=== PATIENT | male | born 1965 | race African-American/Black ===

== ENCOUNTER 2016-09-19 15:20 | Inpatient (IN) | payer OTHER ==
[2016-09-19 15:45] VITALS: BMI 24.1
--- NOTE | 2016-09-19 18:52 | HP ---
COWS - Scale Resting Pulse: 0= [place] 80 or Below Sweatin= Chills/Flushing Restless Observation: 3= Extraneous Movement Pupil Size: 0= Normal to Room Light Bone or Joint Aches: 2= Severe Diffuse Aches Runny Nose/ Eye Tearin= Runny Nose/Eyes GI Upset > 30mins: 2= Nausea/Diarrhea Tremor Observation: 2= Slight Tremor Visible Yawning Observation: 0= None Anxiety or Irritability: 2=Irritable/Anxious Goose Flesh Skin: 0=Smooth Skin COWS Score: 14 [facility] Chief Complaint: withdrawal sx Allergies/Adverse Reactions: Allergies Allergy/AdvReac Type Severity Reaction Status Date / Time No Known Allergies Allergy Verified 09/19/16 18:12 History of Present Illness: 51 years old male with long history of opium cocaine nicotine dependence has asthma positive ppd chronic back pain and depression is admitted to detox Exam Limitations: No Limitations - Ebola screening Have you traveled outside of the country in the last 21 days: No Have you had contact with anyone from an Ebola affected area: No Have you been sick,other than usual withdrawal symptoms: No Do you have a fever: No - Review of Systems Constitutional: Chills, Loss of Appetite, Changes in sleep, Unintentional Wgt. Loss, Unexplained wgt Loss EENT: reports: No Symptoms Reported Respiratory: reports: Cough, SOB with Exertion Cardiac: reports: No Symptoms Reported GI: reports: Nausea, Poor Appetite, Poor Fluid Intake, Abdominal cramping : reports: No Symptoms Reported Musculoskeletal: reports: Back Pain, Joint Pain, Muscle Pain, Neck Pain Integumentary: reports: No Symptoms Reported Neuro: reports: Tremors Endocrine: reports: No Symptoms Reported Hematology: reports: No Symptoms Reported Psychiatric: reports: Judgement Intact, Orientated x3, Depressed Other Systems: Reviewed and Negative Patient History - Patient Medical History Hx Anemia: No Hx Asthma: Yes Hx Chronic Obstructive Pulmonary Disease (COPD): No Hx Cancer: No Hx Cardiac Disorders: Yes (Hx. Heart Murmur) Hx Congestive Heart Failure: No Hx Hypertension: No Hx Hypercholesterolemia: No Hx Pacemaker: No HX Cerebrovascular Accident: No Hx Seizures: No Hx Dementia: No Hx Diabetes: No Hx Gastrointestinal Disorders: No Hx Liver Disease: No Hx Genitourinary Disorders: No Hx Sexually Transmitted Disorders: No Hx Renal Disease (ESRD): No Hx Thyroid Disease: No Hx Human Immunodeficiency Virus (HIV): No Hx Hepatitis C: No Hx Depression: Yes Hx Suicide Attempt: No Hx Bipolar Disorder: No Hx Schizophrenia: No - Patient Surgical History Past Surgical History: No - PPD History Previous Implant?: Yes Documented Results: Positive w/o proof Implanted On Prior [facility] Admission?: No PPD to be Administered?: No - Smoking Cessation Smoking history: Current every day smoker Have you smoked in the past 12 months: Yes Aproximately how many cigarettes per day: 12 Cigars Per Day: 0 Hx Chewing Tobacco Use: No Initiated information on smoking cessation: Yes 'Breaking Loose' booklet given: 09/19/16 - Substance & Tx. History Hx Alcohol Use: No Hx Substance Use: Yes Substance Use Type: Cocaine, Opiates Hx Substance Use Treatment: No - Substances Abused Heroin Route: Inhalation Frequency: Daily Amount used: 1-3 BAGS Age of first use: 42 Date of Last Use: 09/19/16 Cocaine Route: Smoking Frequency: Daily Amount used: 4-5 BAGS Age of first use: 22 Date of Last Use: 09/19/16 Family Disease History - Family Disease History Family Disease History: [place]: Father (), Other: Father Other Family History: only child Admission Physical Exam BHS - Vital Signs Vital Signs: Vital Signs - 24 hr 09/19/16 15:43 Temperature 97.4 F L Pulse Rate 60 Respiratory 18 Rate Blood Pressure 136/80 - Physical General Appearance: Yes: Appropriately Dressed, Mild Distress, Thin, Tremorous, Irritable, Sweating, Anxious HEENTM: Yes: Hearing grossly Normal, Normal ENT Inspection, Normocephalic, Normal Voice Respiratory: Yes: Chest Non-Tender, No Respiratory Distress, No Accessory Muscle Use, Wheezing, Hyperresonant Neck: Yes: Supple, Trachea in good position Breast: Yes: Breasts Symetrical Cardiology: Yes: Regular Rhythm, S1, S2, Bradycardia Abdominal: Yes: Non Tender, Soft, Increased Bowel Sounds Genitourinary: Yes: Within Normal Limits Back: Yes: Normal Inspection Musculoskeletal: Yes: full range of Motion, Gait Steady, Back pain, Muscle Pain Extremities: Yes: Normal Inspection, Normal Range of Motion, Non-Tender, Tremors Neurological: Yes: Fully Oriented, Alert, Motor Strength 5/5, Normal Response, Depressed Affect Integumentary: Yes: Warm Lymphatic: Yes: Within Normal Limits - Addiitonal Findings: unable to select problem upon admission due to technology see summary problem Cleared for Admission [facility] - Detox or Rehab [facility] Level of Care: Medically Managed Detox Regimen/Protocol: Methadone [facility] Breath Alcohol Content Breath Alcohol Content: 0.008 Urine Drug Screen - Results Drug Screen Negative: No Urine Drug Screen Results: STEPHANIE-Cocaine, OPI-Opiates
[2016-09-19] MEDS ORDERED: METHADONE HCL 10 MG TABLET (FOR DETOX USE ONLY) PO ONE ×2 (18:55→23:00)
[2016-09-19] MEDS ORDERED: MAGNESIUM HYDROX 2400MG/30ML ORAL SUSPENSION 30 ML CUP PO PRN (18:55)
[2016-09-19] MEDS ORDERED: MAG HYDROX/AL HYDROX/SIMETH 30 ML UNIT-DOSE CUP PO PRN (18:55)
[2016-09-19] MEDS ORDERED: guaiFENesin/D-METHORPHAN HB 10 ML UNIT-DOSE CUPS PO PRN (18:55)
[2016-09-19] MEDS ORDERED: LOPERAMIDE HCL 2 MG CAPSULE PO PRN (18:55)
[2016-09-19] MEDS ORDERED: MENTHOL/PHENOL 1 EACH UD MM PRN (18:55)
[2016-09-19] MEDS ORDERED: ACETAMINOPHEN 325 MG TABLET (FP) PO PRN (18:55)
[2016-09-19] MEDS ORDERED: MAGNESIUM CITRATE 300 ML BOTTLE PO PRN (18:55)
[2016-09-19] MEDS ORDERED: NICOTINE POLACRILEX 4 MG GUM BC PRN (18:55)
[2016-09-19] MEDS ORDERED: P-EPHED 60MG/TRIPROLIDI 2.5MG TABLET PO PRN (18:55)
[2016-09-19] MEDS ORDERED: IBUPROFEN 400 MG TABLET (FP) PO PRN (18:55)
[2016-09-19] MEDS ORDERED: ALBUTEROL SO4 6.7 GM HFA INHALER IH PRN (18:57)
[2016-09-19] MEDS ORDERED: ALBUTEROL SO4 2.5/IPRATROPIUM 0.5 INH SOL 3 ML VIAL.NEB. NEB PRN (18:57)
[2016-09-19] MEDS: diazePAM 5 MG TABLET PO PRN (19:27)
[2016-09-19] MEDS: BUDESONIDE/FORMETEROL FUMARATE 80/4.5 mcg INHALER IH SCH (22:13)
[2016-09-19] MEDS: LIDOCAINE PATCH REMOVAL MC SCH (22:13)
[2016-09-19] MEDS: THIAMINE HCL 100 MG TABLET (FP) PO SCH (22:13)
[2016-09-20 02:25] LABS: URINE APPEARANCE SLCLOUDY; URINE BILIRUBIN NEGATIVE (NEGATIVE); URINE BLOOD NEGATIVE (NEGATIVE); URINE COLOR YELLOW; URINE GLUCOSE (UA) NEGATIVE (NEGATIVE); URINE KETONE TRACE (NEGATIVE); URINE LEUK ESTERASE NEGATIVE (NEGATIVE); URINE NITRITE NEGATIVE (NEGATIVE); URINE PROTEIN NEGATIVE (NEGATIVE); URINE UROBILINOGEN NEGATIVE E.U./dl (0.2-1.0)
[2016-09-20] MEDS: CYCLOBENZAPRINE HCL 10 MG TABLET (FP) PO PRN (05:34)
[2016-09-20] MEDS: diazePAM 5 MG TABLET PO PRN ×3 (05:34→13:41)
--- NOTE | 2016-09-20 09:42 | PN ---
BHS COWS - Scale Resting Pulse: 0= [place] 80 or Below Sweatin= Chills/Flushing Restless Observation: 3= Extraneous Movement Pupil Size: 2= Moderately Dilated Bone or Joint Aches: 4=Acute Joint/Muscle Pain Runny Nose/ Eye Tearin= Nasal Congestion GI Upset > 30mins: 1= Stomach Cramp Tremor Observation of Outstretched Hands: 2= Slight Tremor Visible Yawning Observation: 1= 1-2x During Session Anxiety or Irritability: 1=Feels Anxious/Irritable Goose Flesh Skin: 0=Smooth Skin COWS Score: 16 BHS Progress Note (SOAP) Subjective: ANXIETY,SWEATS,FATIGUE. Objective: 09/20/16 09:41 Vital Signs Temperature 97.1 F L 09/20/16 06:47 Pulse Rate 59 L 09/20/16 06:47 Respiratory Rate 18 09/20/16 06:47 Blood Pressure 125/81 09/20/16 06:47 O2 Sat by Pulse Oximetry (%) Laboratory Last Values Urine Color Yellow 09/20/16 00:07 Urine Appearance Slcloudy 09/20/16 00:07 Urine pH 6.0 (5.0-8.0) 09/20/16 00:07 Urine Protein Negative (NEGATIVE) 09/20/16 00:07 Urine Glucose (UA) Negative (NEGATIVE) 09/20/16 00:07 Urine Ketones Trace (NEGATIVE) H 09/20/16 00:07 Urine Blood Negative (NEGATIVE) 09/20/16 00:07 Urine Nitrite Negative (NEGATIVE) 09/20/16 00:07 Urine Bilirubin Negative (NEGATIVE) 09/20/16 00:07 Urine Urobilinogen Negative E.U./dl (0.2-1.0) 09/20/16 00:07 Ur Leukocyte Esterase Negative (NEGATIVE) 09/20/16 00:07 Assessment: 09/20/16 09:41 WITHDRAWAL SX Plan: CONTINUE DETOX
[2016-09-20] MEDS ORDERED: METHADONE HCL 10 MG TABLET (FOR DETOX USE ONLY) PO ONE (10:00)
[2016-09-20] MEDS: LIDOCAINE 5% TOPICAL PATCH TP SCH (10:08)
[2016-09-20] MEDS: NICOTINE 21 MG/24 HOURS TOPICAL PATCH TD SCH (10:08)
[2016-09-20] MEDS: BUDESONIDE/FORMETEROL FUMARATE 80/4.5 mcg INHALER IH SCH ×2 (10:08→22:14)
[2016-09-20] MEDS: PRENATAL VITAMINS W/ FOLIC ACID TABLET (FP) PO SCH (10:09)
[2016-09-20 10:11] LABS: MCH 23.7 pg (25.7-33.7); MCHC 32.1 g/dl (32.0-35.9); MEAN CELL VOLUME 73.9 fl (80-96); MEAN PLT VOLUME 9.4 fl (7.5-11.1); PLATELET COUNT 198 K/MM3 (134-434); RDW 15.4 % (11.9-15.9); WHITE BLOOD COUNT 6.4 K/mm3 (4.0-10.0)
[2016-09-20 10:48] LABS: ALBUMIN 3.2 g/dl (3.4-5.0); ANION GAP 5 (8-16); CALCIUM 8.3 mg/dL (8.5-10.1); CO2 30 mmol/L (21-32); CREATININE 0.9 mg/dL (0.7-1.3); GLUCOSE,RANDOM 93 mg/dL (74-106); SGOT/AST 21 U/L (15-37); SGPT/ALT 29 U/L (12-78)
[2016-09-20 10:50] LABS: ALK PHOS 101 U/L (45-117); BILIRUBIN,TOTAL 0.5 mg/dL (0.2-1.0); TOT PROT 6.1 g/dl (6.4-8.2)
--- NOTE | 2016-09-20 14:22 | CONSULT ---
[facility] Psychiatric Consult - Data Date of interview: 09/20/16 Admission source: [facility] Identifying data: This is 51 years old male with no psychiatric hospitalization history intoxicated with : Heroin, Crack, Nicotine Substance Abuse History: - Smoking Cessation. Smoking history: Current every day smoker. Have you smoked in the past 12 months: Yes. Aproximately how many cigarettes per day: 12. Cigars Per Day: 0. Hx Chewing Tobacco Use: No. Initiated information on smoking cessation: Yes. 'Breaking Loose' booklet given : 09/19/16. - Substance & Tx. History. Hx Alcohol Use: No. Hx Substance Use: Yes. Substance Use Type: Cocaine, Opiates. Hx Substance Use Treatment: No. - Substances Abused. Heroin. Route: Inhalation. Frequency: Daily. Amount used: 1-3 BAGS. Age of first use: 42. Date of Last Use: 09/19/16. Cocaine. Route: Smoking. Frequency: Daily. Amount used: 4-5 BAGS. Age of first use: 22. Date of Last Use: 09/19/16 Medical History: Asthma, LBP, OOD + history, Psychiatric History: Patient reports history of depression, reports no medications taking prior to admission, denies suicidal history Physical/Sexual Abuse/Trauma History: Denies Additional Comment: Observation. Detox Unit Care Protocol Mental Status Exam - Mental Status Exam Alert and Oriented to: Person Cognitive Function: Fair Patient Appearance: Well Groomed, Unkempt Mood: Apprehensive Affect: Flat Patient Behavior: Cooperative Speech Pattern: Appropriate Voice Loudness: Normal Thought Process: Goal Oriented Thought Disorder: Being Controlled Hallucinations: Denies Suicidal Ideation: Denies Homicidal Ideation: Denies Insight/Judgement: Fair Sleep: Difficulty falling asleep Appetite: Fair Muscle strength/Tone: Normal Gait/Station: Normal Additional Comments: Observation. Detox Unit Care Protocol Psychiatric Findings - Problem List ([place] 1, 2,3) (1) Opioid dependence with withdrawal Current Visit: Yes Status: Acute (2) Weight loss Current Visit: Yes Status: Acute (3) Cocaine dependence Current Visit: Yes Status: Acute (4) Nicotine dependence Current Visit: Yes Status: Acute (5) Drug-induced mood disorder Current Visit: Yes Status: Suspected - Initial Treatment Plan Initial Treatment Plan: Observation. Detox Unit Care Protocol
[2016-09-20 15:32] LABS: HIV 1 & 2 AB NEGATIVE; HIV 1 AGp24 NEGATIVE
--- NOTE | 2016-09-20 15:50 | EKG ---
Test Reason : Blood Pressure : / mmHG Vent. Rate : 060 BPM Atrial Rate : 060 BPM P-R Int : 150 ms QRS Dur : 074 ms QT Int : 442 ms P-R-T Axes : 068 052 052 degrees QTc Int : 442 ms NORMAL SINUS RHYTHM NORMAL ECG NO PREVIOUS ECGS AVAILABLE Confirmed by BROOKE WALTERS, ALEX ([id number]) on 09/20/2016 3:49:45 PM Referred By: Confirmed By:ALEX COX MD
[2016-09-20] MEDS: diphenhydrAMINE HCL 50 MG CAPSULE PO PRN (22:15)
[2016-09-20] MEDS: THIAMINE HCL 100 MG TABLET (FP) PO SCH (22:15)
[2016-09-20] MEDS: LIDOCAINE PATCH REMOVAL MC SCH (22:16)
[2016-09-21] MEDS: diazePAM 5 MG TABLET PO PRN ×2 (05:38→10:13)
[2016-09-21] MEDS ORDERED: METHADONE HCL 5 MG TABLET (FOR DETOX USE ONLY) PO ONE (10:00)
[2016-09-21] MEDS: PRENATAL VITAMINS W/ FOLIC ACID TABLET (FP) PO SCH (10:10)
[2016-09-21] MEDS: BUDESONIDE/FORMETEROL FUMARATE 80/4.5 mcg INHALER IH SCH ×2 (10:10→22:05)
[2016-09-21] MEDS: NICOTINE 21 MG/24 HOURS TOPICAL PATCH TD SCH (10:12)
[2016-09-21] MEDS: LIDOCAINE 5% TOPICAL PATCH TP SCH (10:12)
--- NOTE | 2016-09-21 10:44 | PN ---
BHS COWS - Scale Resting Pulse: 0= [place] 80 or Below Sweatin= Chills/Flushing Restless Observation: 3= Extraneous Movement Pupil Size: 0= Normal to Room Light Bone or Joint Aches: 4=Acute Joint/Muscle Pain Runny Nose/ Eye Tearin= Nasal Congestion GI Upset > 30mins: 1= Stomach Cramp Tremor Observation of Outstretched Hands: 1= Tremor [place], Not Seen Yawning Observation: 1= 1-2x During Session Anxiety or Irritability: 2=Irritable/Anxious Goose Flesh Skin: 0=Smooth Skin COWS Score: 14 S Progress Note (SOAP) Subjective: ANXIETY,SWEATS,OOB WITH NAD. Objective: 09/21/16 10:44 Vital Signs Temperature 97.7 F 09/21/16 10:20 Pulse Rate 59 L 09/21/16 10:20 Respiratory Rate 16 09/21/16 10:20 Blood Pressure 135/88 09/21/16 10:20 O2 Sat by Pulse Oximetry (%) Laboratory Last Values WBC 6.4 K/mm3 (4.0-10.0) 09/20/16 07:00 RBC 4.49 M/mm3 (4.00-5.60) 09/20/16 07:00 Hgb 10.7 GM/dL (11.7-16.9) L 09/20/16 07:00 Hct 33.2 % (35.4-49) L 09/20/16 07:00 MCV 73.9 fl (80-96) L 09/20/16 07:00 MCHC 32.1 g/dl (32.0-35.9) 09/20/16 07:00 RDW 15.4 % (11.9-15.9) 09/20/16 07:00 Plt Count 198 K/MM3 (134-434) 09/20/16 07:00 MPV 9.4 fl (7.5-11.1) 09/20/16 07:00 Sodium 141 mmol/L (136-145) 09/20/16 07:00 Potassium 4.2 mmol/L (3.5-5.1) 09/20/16 07:00 Chloride 106 mmol/L (98-107) 09/20/16 07:00 Carbon Dioxide 30 mmol/L (21-32) 09/20/16 07:00 Anion Gap 5 (8-16) L 09/20/16 07:00 BUN 13 mg/dL (7-18) 09/20/16 07:00 Creatinine 0.9 mg/dL (0.7-1.3) 09/20/16 07:00 Creat Clearance w eGFR > 60 (>60) 09/20/16 07:00 Random Glucose 93 mg/dL (74-106) 09/20/16 07:00 Calcium 8.3 mg/dL (8.5-10.1) L 09/20/16 07:00 Total Bilirubin 0.5 mg/dL (0.2-1.0) 09/20/16 07:00 AST 21 U/L (15-37) 09/20/16 07:00 ALT 29 U/L (12-78) 09/20/16 07:00 Alkaline Phosphatase 101 U/L (45-117) 09/20/16 07:00 Total Protein 6.1 g/dl (6.4-8.2) L 09/20/16 07:00 Albumin 3.2 g/dl (3.4-5.0) L 09/20/16 07:00 Urine Color Yellow 09/20/16 00:07 Urine Appearance Slcloudy 09/20/16 00:07 Urine pH 6.0 (5.0-8.0) 09/20/16 00:07 Ur Specific [place] 1.025 (1.005-1.025) 09/20/16 00:07 Urine Protein Negative (NEGATIVE) 09/20/16 00:07 Urine Glucose (UA) Negative (NEGATIVE) 09/20/16 00:07 Urine Ketones Trace (NEGATIVE) H 09/20/16 00:07 Urine Blood Negative (NEGATIVE) 09/20/16 00:07 Urine Nitrite Negative (NEGATIVE) 09/20/16 00:07 Urine Bilirubin Negative (NEGATIVE) 09/20/16 00:07 Urine Urobilinogen Negative E.U./dl (0.2-1.0) 09/20/16 00:07 Ur Leukocyte Esterase Negative (NEGATIVE) 09/20/16 00:07 RPR Titer Nonreactive (NONREACTIVE) 09/20/16 07:00 Hepatitis C Antibody <0.1 s/co ratio (0.0-0.9) 09/19/16 07:00 HIV 1&2 Antibody Screen Negative 09/20/16 07:00 HIV P24 Antigen Negative 09/20/16 07:00 Assessment: 09/21/16 10:44 WITHDRAWAL SX Plan: CONTINUE DETOX
[2016-09-21] MEDS: LIDOCAINE PATCH REMOVAL MC SCH (22:05)
[2016-09-21] MEDS: THIAMINE HCL 100 MG TABLET (FP) PO SCH (22:05)
[2016-09-21] MEDS: diphenhydrAMINE HCL 50 MG CAPSULE PO PRN (22:05)
[2016-09-22] MEDS: diazePAM 5 MG TABLET PO PRN (05:48)
[2016-09-22] MEDS: CYCLOBENZAPRINE HCL 10 MG TABLET (FP) PO PRN (05:48)
[2016-09-22] MEDS ORDERED: METHADONE HCL 5 MG TABLET (FOR DETOX USE ONLY) PO ONE (10:00)
[2016-09-22] MEDS: PRENATAL VITAMINS W/ FOLIC ACID TABLET (FP) PO SCH (10:13)
[2016-09-22] MEDS: LIDOCAINE 5% TOPICAL PATCH TP SCH (10:13)
[2016-09-22] MEDS: BUDESONIDE/FORMETEROL FUMARATE 80/4.5 mcg INHALER IH SCH (10:13)
[2016-09-22] MEDS: NICOTINE 21 MG/24 HOURS TOPICAL PATCH TD SCH (10:14)
--- NOTE | 2016-09-22 15:00 | PN ---
BHS Progress Note (SOAP) Subjective: Tremors, Anxious, Sweating. Objective: PT. A & O X 3, OBSERVED AMBULATING ON UNIT. NO ACUTE DISTRESS. 09/22/16 14:59 Vital Signs Temperature 97.1 F L 09/22/16 13:45 Pulse Rate 70 09/22/16 13:45 Respiratory Rate 18 09/22/16 13:45 Blood Pressure 135/83 09/22/16 13:45 O2 Sat by Pulse Oximetry (%) Laboratory Tests 09/19/16 09/20/16 09/20/16 07:00 00:07 07:00 WBC RBC Hgb Hct MCV MCHC RDW Plt Count MPV Sodium Potassium Chloride Carbon Dioxide Anion Gap BUN Creatinine Creat Clearance w eGFR Random Glucose Calcium Total Bilirubin AST ALT Alkaline Phosphatase Total Protein Albumin Urine Color Yellow Urine Appearance Slcloudy Urine pH 6.0 Ur Specific [place] 1.025 Urine Protein Negative Urine Glucose (UA) Negative Urine Ketones Trace H Urine Blood Negative Urine Nitrite Negative Urine Bilirubin Negative Urine Urobilinogen Negative Ur Leukocyte Esterase Negative RPR Titer Hepatitis C Antibody <0.1 HIV 1&2 Antibody Screen Negative HIV P24 Antigen Negative 09/20/16 09/20/16 09/20/16 07:00 07:00 07:00 WBC 6.4 RBC 4.49 Hgb 10.7 L Hct 33.2 L MCV 73.9 L MCHC 32.1 RDW 15.4 Plt Count 198 MPV 9.4 Sodium 141 Potassium 4.2 Chloride 106 Carbon Dioxide 30 Anion Gap 5 L BUN 13 Creatinine 0.9 Creat Clearance w eGFR > 60 Random Glucose 93 Calcium 8.3 L Total Bilirubin 0.5 AST 21 ALT 29 Alkaline Phosphatase 101 Total Protein 6.1 L Albumin 3.2 L Urine Color Urine Appearance Urine pH Ur Specific [place] Urine Protein Urine Glucose (UA) Urine Ketones Urine Blood Urine Nitrite Urine Bilirubin Urine Urobilinogen Ur Leukocyte Esterase RPR Titer Nonreactive Hepatitis C Antibody HIV 1&2 Antibody Screen HIV P24 Antigen LABS NOTED. Assessment: 09/22/16 14:59 WITHDRAWAL SYMPTOMS. Plan: CONTINUE DETOX.
[2016-09-22 17:24] VITALS: BP 127/69; PULSE 63; TEMP 97.4
--- NOTE | 2016-09-22 21:26 | DS ---
[facility] Detox Discharge Summary Admission Date: 09/19/16 Discharge Date: 09/22/16 - History Present History: Cocaine Dependence, Opioid Dependence Additional Comments: Pt. left AMA. He was encouraged to complete treatment, however he refused to stay and did not give a reason as to why he wanted to leave. - Physical Exam Results Vital Signs: Vital Signs Temperature 97.4 F L 09/22/16 17:22 Pulse Rate 63 09/22/16 17:22 Respiratory Rate 18 09/22/16 17:22 Blood Pressure 127/69 09/22/16 17:22 O2 Sat by Pulse Oximetry (%) - Treatment Hospital Course: Discharged Condition Good - Medication Discharge Medications: Ambulatory Orders Albuterol Sulfate Inhaler - [Ventolin HFA Inhaler -] 2 inh PO Q6H #1 inh - Diagnosis (1) Asthma Status: Acute (2) Cocaine dependence Status: Acute (3) Opioid dependence with withdrawal Status: Acute - AMA Did Patient Leave Against Medical Advice: Yes (Pt. was given the contact information to [facility] [place]. )
[2016-09-23] MEDS ORDERED: METHADONE HCL 10 MG TABLET (FOR DETOX USE ONLY) PO ONE (10:00)
[2016-09-24] MEDS ORDERED: METHADONE HCL 5 MG TABLET (FOR DETOX USE ONLY) PO ONE (06:00)
== END 2016-09-22 20:39 | disposition left against medical advice (07) | DRG 770 ==
LOC: YASAS 15:20 → Y3N 18:25
PROVIDERS: ADMIT Internal Medicine; ATTEND Internal Medicine
PROC: HZ2ZZZZ Detoxification Services for Substance Abuse Treatment (ICD-10-PCS; principal; 2016-09-22)
DX: F11.23 Opioid dependence with withdrawal (principal); F14.20 Cocaine dependence, uncomplicated; F17.210 Nicotine dependence, cigarettes, uncomplicated; F19.24 Other psychoactive substance dependence with psychoactive substance-induced mood disorder; J45.909 Unspecified asthma, uncomplicated; R63.4 Abnormal weight loss; Z68.24 Body mass index [BMI] 24.0-24.9, adult
CPT/HCPCS: 36415; 80053; 81003; 85027; 86593; 86803; 87389; 93005; 93010

== ENCOUNTER 2017-03-21 18:58 | Inpatient (IN) | payer OTHER ==
[2017-03-21 20:27] VITALS: BMI 25.5
--- NOTE | 2017-03-21 21:32 | HP ---
CIWA Score - CIWA Score Nausea/Vomitin-Mild Nausea/No Vomiting Muscle Tremors: 4-Moderate,w/Arms Extend Anxiety: 4-Mod. Anxious/Guarded Agitation: 4-Moderately Restless Paroxysmal Sweats: 1-Minimal Palms Moist Orientation: 0-Oriented Tacttile Disturbances: 0-None Auditory Disturbances: 0-None Visual Disturbances: 0-None Headache: 0-None Present CIWA-Ar Total Score: 14 Admission ROS BHS - HPI Chief Complaint: WITHDRAWAL SX Allergies/Adverse Reactions: Allergies Allergy/AdvReac Type Severity Reaction Status Date / Time No Known Allergies Allergy Verified 09/19/16 18:12 History of Present Illness: 52 YEARS OLD MALE WITH LONG HISTORY OF ALCOHOL NICOTINE DEPENDENCE HAS ASTHMA POSITIVE PPD METHADONE MAINTENANCE 60 MG DAILY AND DEPRESSION IS ADMITTED TO DETOX Exam Limitations: No Limitations - Ebola screening Have you traveled outside of the country in the last 21 days: No Have you had contact with anyone from an Ebola affected area: No Have you been sick,other than usual withdrawal symptoms: No Do you have a fever: No - Review of Systems Constitutional: Loss of Appetite, Changes in sleep, Unintentional Wgt. Loss, Unexplained wgt Loss EENT: reports: Blurred Vision (NEED EYE GLASSES), Dental Problems (LEFT LOWER TOOTH ACHE X 1 MONTH ABLE TO CHEW GUM AND CHEW REGULAR FOOD) Respiratory: reports: No Symptoms reported Cardiac: reports: No Symptoms Reported GI: reports: Nausea, Poor Appetite, Poor Fluid Intake, Abdominal cramping : reports: No Symptoms Reported Musculoskeletal: reports: Back Pain (X15 YEARS) Integumentary: reports: No Symptoms Reported Neuro: reports: Tremors Endocrine: reports: No Symptoms Reported Hematology: reports: No Symptoms Reported Psychiatric: reports: Judgement Intact, Orientated x3, Anxious, Depressed Other Systems: Reviewed and Negative Patient History - Patient Medical History Hx Anemia: No Hx Asthma: Yes Hx Chronic Obstructive Pulmonary Disease (COPD): No Hx Cancer: No Hx Cardiac Disorders: Yes (Hx. Heart Murmur) Hx Congestive Heart Failure: No Hx Hypertension: No Hx Hypercholesterolemia: No Hx Pacemaker: No HX Cerebrovascular Accident: No Hx Seizures: No Hx Dementia: No Hx Diabetes: No Hx Gastrointestinal Disorders: No Hx Liver Disease: No Hx Genitourinary Disorders: No Hx Sexually Transmitted Disorders: No Hx Renal Disease (ESRD): No Hx Thyroid Disease: No Hx Human Immunodeficiency Virus (HIV): No Hx Hepatitis C: No Hx Depression: Yes Hx Suicide Attempt: No Hx Bipolar Disorder: No Hx Schizophrenia: No - Patient Surgical History Past Surgical History: No - PPD History Previous Implant?: Yes Documented Results: Positive w/proof Implanted On Prior [facility] Admission?: No PPD to be Administered?: No - Smoking Cessation Smoking history: Current every day smoker Have you smoked in the past 12 months: Yes Aproximately how many cigarettes per day: 5 Cigars Per Day: 0 Hx Chewing Tobacco Use: No Initiated information on smoking cessation: Yes 'Breaking Loose' booklet given: 03/21/17 - Substance & Tx. History Hx Alcohol Use: Yes Hx Substance Use: Yes Substance Use Type: Alcohol, Cocaine, Heroin Hx Substance Use Treatment: Yes (09/2016 [facility] - Substances Abused Alcohol Route: Oral Frequency: Daily (QUART BEER) Amount used: QUART BEER Age of first use: 15 Date of Last Use: 03/21/17 Family Disease History - Family Disease History Family Disease History: [place]: Father (), Other: Father Admission Physical Exam [facility] - Vital Signs Vital Signs: Vital Signs - 24 hr 03/21/17 20:25 Temperature 96.9 F L Pulse Rate 63 Respiratory 18 Rate Blood Pressure 136/84 - Physical General Appearance: Yes: Appropriately Dressed, Mild Distress, Thin, Tremorous, Irritable, Sweating, Anxious HEENTM: Yes: Hearing grossly Normal, Normocephalic, Normal Voice Respiratory: Yes: Chest Non-Tender, No Respiratory Distress, No Accessory Muscle Use, Wheezing Neck: Yes: Supple, Trachea in good position Breast: Yes: Breasts Symetrical Cardiology: Yes: Regular Rhythm, S1, S2, Murmur Abdominal: Yes: Normal Bowel Sounds, Non Tender, Soft Genitourinary: Yes: Within Normal Limits Back: Yes: Normal Inspection Musculoskeletal: Yes: full range of Motion, Gait Steady Extremities: Yes: Normal Inspection, Normal Range of Motion, Non-Tender, Tremors Neurological: Yes: Fully Oriented, Alert, Normal Mood/Affect, Normal Response Integumentary: Yes: Warm Lymphatic: Yes: Within Normal Limits - Diagnostic (1) Methadone maintenance therapy patient Current Visit: Yes Status: Chronic Comment: 60 MG PO DAILY VERIFICATION PENDING (2) Asthma Current Visit: Yes Status: Chronic Qualifiers: Asthma severity: mild Asthma persistence: intermittent Asthma complication type: with status asthmaticus Qualified Code(s): J45.22 - Mild intermittent asthma with status asthmaticus (3) Nicotine dependence Current Visit: Yes Status: Acute Qualifiers: Nicotine product type: cigarettes Substance use status: in withdrawal Qualified Code(s): F17.213 - Nicotine dependence, cigarettes, with withdrawal (4) Positive PPD, treated Current Visit: No Status: Resolved (5) Weight loss Current Visit: Yes Status: Acute Cleared for Admission S - Detox or Rehab [facility] Level of Care: Medically Managed Detox Regimen/Protocol: Librium [facility] Breath Alcohol Content Breath Alcohol Content: 0 Urine Drug Screen - Results Drug Screen Negative: No Urine Drug Screen Results: STEPHANIE-Cocaine, OPI-Opiates, MTD-Methadone, OXY- Oxycodone
[2017-03-21] MEDS ORDERED: chlordiazePOXIDE HCL 25 MG CAPSULE PO PRN (21:40)
[2017-03-21] MEDS ORDERED: IBUPROFEN 400 MG TABLET (FP) PO PRN (21:40)
[2017-03-21] MEDS ORDERED: MENTHOL/PHENOL 1 EACH UD MM PRN (21:40)
[2017-03-21] MEDS ORDERED: LOPERAMIDE HCL 2 MG CAPSULE PO PRN (21:40)
[2017-03-21] MEDS ORDERED: MAGNESIUM HYDROX 2400MG/30ML ORAL SUSPENSION 30 ML CUP PO PRN (21:40)
[2017-03-21] MEDS ORDERED: P-EPHED 60MG/TRIPROLIDI 2.5MG TABLET PO PRN (21:40)
[2017-03-21] MEDS ORDERED: MAG HYDROX/AL HYDROX/SIMETH 30 ML UNIT-DOSE CUP PO PRN (21:40)
[2017-03-21] MEDS ORDERED: guaiFENesin/D-METHORPHAN HB 10 ML UNIT-DOSE CUPS PO PRN (21:40)
[2017-03-21] MEDS ORDERED: NICOTINE POLACRILEX 2 MG GUM BC PRN (21:40)
[2017-03-21] MEDS ORDERED: MAGNESIUM CITRATE 300 ML BOTTLE PO PRN (21:40)
[2017-03-21] MEDS ORDERED: ALBUTEROL SO4 18 GM HFA INHALER IH PRN (21:43)
[2017-03-21] MEDS ORDERED: ALBUTEROL SO4 0.083% IH SOL 2.5 MG/3 ML VIAL.NEB. NEB PRN (21:45)
[2017-03-22 02:02] LABS: URINE APPEARANCE SLCLOUDY; URINE BILIRUBIN NEGATIVE (NEGATIVE); URINE BLOOD NEGATIVE (NEGATIVE); URINE COLOR AMBER; URINE GLUCOSE (UA) NEGATIVE (NEGATIVE); URINE KETONE TRACE (NEGATIVE); URINE LEUK ESTERASE NEGATIVE (NEGATIVE); URINE NITRITE NEGATIVE (NEGATIVE); URINE PROTEIN NEGATIVE (NEGATIVE); URINE UROBILINOGEN 4.0 E.U/dl mg/dL (0.2-1.0)
[2017-03-22] MEDS: chlordiazePOXIDE HCL 25 MG CAPSULE PO SCH ×5 (02:04→22:05)
[2017-03-22] MEDS: GABAPENTIN 100 MG CAPSULE (FP) PO SCH ×4 (02:05→20:48)
[2017-03-22] MEDS: THIAMINE HCL 100 MG TABLET (FP) PO SCH ×2 (02:05→22:04)
[2017-03-22] MEDS: METHOCARBAMOL 500 MG TABLET PO SCH ×4 (02:05→22:04)
[2017-03-22] MEDS ORDERED: METHADONE HCL 10 MG TABLET PO SCH (06:30)
[2017-03-22] MEDS ORDERED: METHADONE HCL 10 MG TABLET ONE (06:51)
[2017-03-22] MEDS ORDERED: METHADONE HCL 40 MG DISPERSABLE TABLET ONE (06:52)
[2017-03-22] MEDS: METHADONE 40 MG, METHADONE 10 MG PO SCH (06:52)
[2017-03-22] MEDS ORDERED: DICLOFENAC SODIUM 75 MG TABLET.DR PO SCH (10:00)
[2017-03-22 10:02] LABS: MCHC 31.2 g/dl (32.0-35.9); MEAN CELL VOLUME 73.8 fl (80-96); MEAN PLT VOLUME 9.4 fl (7.5-11.1); PLATELET COUNT 196 K/MM3 (134-434); RDW 16.5 % (11.9-15.9); WHITE BLOOD COUNT 5.4 K/mm3 (4.0-10.0)
[2017-03-22] MEDS: PRENATAL VITAMINS W/ FOLIC ACID TABLET (FP) PO SCH (10:16)
[2017-03-22] MEDS: NICOTINE 14 MG/24 HOURS TOPICAL PATCH TD SCH (10:17)
[2017-03-22 10:25] LABS: ALBUMIN 3.5 g/dl (3.4-5.0); ALK PHOS 87 U/L (45-117); ANION GAP 7 (8-16); BILIRUBIN,TOTAL 0.5 mg/dL (0.2-1.0); CALCIUM 8.3 mg/dL (8.5-10.1); CO2 28 mmol/L (21-32); GLUCOSE,RANDOM 73 mg/dL (74-106); SGOT/AST 12 U/L (15-37); SGPT/ALT 15 U/L (12-78); TOT PROT 6.5 g/dl (6.4-8.2)
[2017-03-22 11:23] LABS: URINE LEUK ESTERASE Negative (NEGATIVE)
[2017-03-22] MEDS ORDERED: PNEUMOCOCCAL 23 VACCINE 0.5 ML VIAL IM ONE (12:00)
[2017-03-22] MEDS ORDERED: PNEUMOC 13-VAL CONJ-DIP CRM/PF 0.5 ML DISP.SYRIN IM ONE (12:00)
--- NOTE | 2017-03-22 12:15 | PN ---
[facility] CIWA - CIWA Score Nausea/Vomitin-Mild Nausea/No Vomiting Muscle Tremors: 3 Anxiety: 3 Agitation: 3 Paroxysmal Sweats: 3 Orientation: 0-Oriented Tacttile Disturbances: 1-Very Mild Itch/Numbness Auditory Disturbances: 0-None Visual Disturbances: 0-None Headache: 0-None Present CIWA-Ar Total Score: 14 S Progress Note (SOAP) Subjective: Sweating, anxious, interrupted sleep Objective: 03/22/17 12:13 Last Vital Signs Temp Pulse Resp BP Pulse Ox 97.0 F L 56 L 20 106/67 03/22/17 09:28 03/22/17 09:28 03/22/17 09:28 03/22/17 09:28 Laboratory Tests 03/21/17 03/22/17 03/22/17 23:07 07:00 07:00 WBC 5.4 RBC 4.45 Hgb 10.2 L Hct 32.8 L MCV 73.8 L MCH 23.0 L MCHC 31.2 L RDW 16.5 H Plt Count 196 MPV 9.4 Sodium 141 Potassium 4.2 Chloride 106 Carbon Dioxide 28 Anion Gap 7 L BUN 10 D Creatinine 1.0 Creat Clearance w eGFR > 60 Random Glucose 73 L D Calcium 8.3 L Total Bilirubin 0.5 AST 12 L D ALT 15 D Alkaline Phosphatase 87 Total Protein 6.5 Albumin 3.5 Urine Color [place] Urine Appearance Slcloudy Urine pH 5.0 Ur Specific [place] 1.026 Urine Protein Negative Urine Glucose (UA) Negative Urine Ketones Trace H Urine Blood Negative Urine Nitrite Negative Urine Bilirubin Negative Urine Urobilinogen 4.0 e.u/dl Ur Leukocyte Esterase Negative RPR Titer 03/22/17 07:00 WBC RBC Hgb Hct MCV MCH MCHC RDW Plt Count MPV Sodium Potassium Chloride Carbon Dioxide Anion Gap BUN Creatinine Creat Clearance w eGFR Random Glucose Calcium Total Bilirubin AST ALT Alkaline Phosphatase Total Protein Albumin Urine Color Urine Appearance Urine pH Ur Specific [place] Urine Protein Urine Glucose (UA) Urine Ketones Urine Blood Urine Nitrite Urine Bilirubin Urine Urobilinogen Ur Leukocyte Esterase RPR Titer Nonreactive Labs noted Assessment: 03/22/17 12:14 Withdrawal symptoms Plan: Continue detox Encouraged to drink lots of water (at least 8 cups daily)
--- NOTE | 2017-03-22 12:19 | CONSULT ---
[facility] Psychiatric Consult - Data Date of interview: 03/22/17 Admission source: [facility] Identifying data: Readmission to [facility] for this 52 y/o AA male seeking detox treatment on for alcohol,cocaine and heroin dependence.Patient is ,a father of one,domiciled and currently employed. Substance Abuse History: Confirmed by patient in this interview.Se details in current [facility] report : Smoking history: Current every day smoker. Have you smoked in the past 12 months: Yes. Aproximately how many cigarettes per day: 5. Cigars Per Day: 0. Hx Chewing Tobacco Use: No. Initiated information on smoking cessation: Yes. 'Breaking Loose' booklet given: 03/21/17. - Substance & Tx. History. Hx Alcohol Use: Yes. Hx Substance Use: Yes. Substance Use Type : Alcohol, Cocaine, Heroin. Hx Substance Use Treatment: Yes (09/2016 [facility]) . - Substances Abused. Alcohol. Route: Oral. Frequency: Daily (QUART BEER ). Amount used: QUART BEER. Age of first use: 15. Date of Last Use: 03/21/17 Medical History: History of positive PPD,heart murmur and bronchial asthma. Psychiatric History: Patient admits to one psychiatric hospitalization at [facility].Diagnosed with PTSD.Prescribed remeron 30 mg/hs + gabapentin 100 mg po tid (information is extracted from a medication list from the [facility] - dated 06/2016 - in possession of the patient).Mr Morel did not recall the doses.He sees a psychiatrist at the [facility] in [facility].Currently on methadone maintenance (60 mg/day).Patient denies history of suicide attempts. Physical/Sexual Abuse/Trauma History: Patient denies. Additional Comment: Urine Drug Screen Results: STEPHANIE-Cocaine, OPI-Opiates, MTD- Methadone, OXY-Oxycodone.Noted. Mental Status Exam - Mental Status Exam Alert and Oriented to: Time, Place, Person Cognitive Function: Good Patient Appearance: Well Groomed Mood: Hopeful, Euthymic Affect: Appropriate, Normal Range Patient Behavior: Fatigued, Cooperative Speech Pattern: Clear, Appropriate Voice Loudness: Normal Thought Process: Intact, Goal Oriented Thought Disorder: Not Present Hallucinations: Denies Suicidal Ideation: Denies Homicidal Ideation: Denies Insight/Judgement: Poor Sleep: Poorly, Difficulty falling asleep Appetite: Good Muscle strength/Tone: Normal Gait/Station: Normal Psychiatric Findings - Problem List ([place] 1, 2,3) (1) Alcohol dependence with withdrawal, uncomplicated Current Visit: Yes Status: Acute (2) Opioid dependence on agonist therapy Current Visit: Yes Status: Acute (3) Opioid dependence with withdrawal Current Visit: Yes Status: Acute (4) Cocaine dependence Current Visit: Yes Status: Acute (5) Nicotine dependence Current Visit: Yes Status: Chronic Qualifiers: Nicotine product type: cigarettes Substance use status: in withdrawal Qualified Code(s): F17.213 - Nicotine dependence, cigarettes, with withdrawal (6) Drug-induced mood disorder Current Visit: Yes Status: Acute (7) Insomnia Current Visit: Yes Status: Acute - Initial Treatment Plan Initial Treatment Plan: Psychoeducation.Detoxification.Medication : remeron 15 mg po hs.Side effects/benefits are discusssed with the patient.Consent (verbal) given by patient.Observation.
[2017-03-22] MEDS: DICLOFENAC SODIUM 75 MG TABLET.DR PO SCH (12:52)
--- NOTE | 2017-03-22 13:55 | EKG ---
Test Reason : Blood Pressure : / mmHG Vent. Rate : 051 BPM Atrial Rate : 051 BPM P-R Int : 160 ms QRS Dur : 084 ms QT Int : 470 ms P-R-T Axes : 068 042 033 degrees QTc Int : 433 ms SINUS BRADYCARDIA NONSPECIFIC T WAVE ABNORMALITY ABNORMAL ECG WHEN COMPARED WITH ECG OF 22-MAR-2017 02:47, NO SIGNIFICANT CHANGE WAS FOUND Confirmed by AMY BEAULIEU MD ([id number]) on 03/22/2017 1:55:07 PM Referred By: Confirmed By:AMY BEAULIEU MD
--- NOTE | 2017-03-22 13:57 | EKG ---
Test Reason : Blood Pressure : / mmHG Vent. Rate : 053 BPM Atrial Rate : 053 BPM P-R Int : 156 ms QRS Dur : 082 ms QT Int : 450 ms P-R-T Axes : 067 047 028 degrees QTc Int : 422 ms SINUS BRADYCARDIA NONSPECIFIC T WAVE ABNORMALITY ABNORMAL ECG WHEN COMPARED WITH ECG OF 19-SEP-2016 18:30, NONSPECIFIC T WAVE ABNORMALITY NOW EVIDENT IN LATERAL LEADS Confirmed by AMY BEAULIEU MD ([id number]) on 03/22/2017 1:57:15 PM Referred By: Confirmed By:AMY BEAULIEU MD
[2017-03-22 15:15] LABS: HIV 1 & 2 AB NEGATIVE; HIV 1 AGp24 NEGATIVE
[2017-03-22] MEDS: MIRTAZAPINE 15 MG TABLET (FP) PO SCH (22:04)
[2017-03-23] MEDS ORDERED: METHADONE HCL 10 MG TABLET ONE (04:03)
[2017-03-23] MEDS ORDERED: METHADONE HCL 40 MG DISPERSABLE TABLET ONE (04:04)
[2017-03-23] MEDS: METHOCARBAMOL 500 MG TABLET PO SCH ×3 (05:07→22:03)
[2017-03-23] MEDS: GABAPENTIN 100 MG CAPSULE (FP) PO SCH ×3 (05:08→22:02)
[2017-03-23] MEDS: chlordiazePOXIDE HCL 25 MG CAPSULE PO SCH ×3 (05:08→16:54)
[2017-03-23] MEDS: METHADONE 40 MG, METHADONE 10 MG PO SCH (05:08)
[2017-03-23] MEDS: NICOTINE 14 MG/24 HOURS TOPICAL PATCH TD SCH (10:40)
[2017-03-23] MEDS: PRENATAL VITAMINS W/ FOLIC ACID TABLET (FP) PO SCH (10:40)
[2017-03-23] MEDS: DICLOFENAC SODIUM 75 MG TABLET.DR PO SCH (10:40)
--- NOTE | 2017-03-23 14:00 | PN ---
[facility] CIWA - CIWA Score Nausea/Vomitin-No Nausea/No Vomiting Muscle Tremors: 3 Anxiety: 4-Mod. Anxious/Guarded Agitation: 2 Paroxysmal Sweats: No Perspiration Orientation: 0-Oriented Tacttile Disturbances: 2-Mild Itch/Numbness/Burn Auditory Disturbances: 0-None Visual Disturbances: 2-Mild Sensitivity Headache: 3-Moderate CIWA-Ar Total Score: 16 S Progress Note (SOAP) Subjective: Diarrhea, Body Aches, Tremors, H/A, Fatigue. Objective: PT. A & O X 3, OBSERVED AMBULATING ON UNIT. NO ACUTE DISTRESS. 03/23/17 13:58 Vital Signs Temperature 97.6 F 03/23/17 11:13 Pulse Rate 42 L 03/23/17 11:13 Respiratory Rate 18 03/23/17 11:13 Blood Pressure 138/83 03/23/17 11:13 O2 Sat by Pulse Oximetry (%) Laboratory Tests 03/21/17 03/22/17 03/22/17 23:07 07:00 07:00 WBC 5.4 RBC 4.45 Hgb 10.2 L Hct 32.8 L MCV 73.8 L MCH 23.0 L MCHC 31.2 L RDW 16.5 H Plt Count 196 MPV 9.4 Sodium 141 Potassium 4.2 Chloride 106 Carbon Dioxide 28 Anion Gap 7 L BUN 10 D Creatinine 1.0 Creat Clearance w eGFR > 60 Random Glucose 73 L D Calcium 8.3 L Total Bilirubin 0.5 AST 12 L D ALT 15 D Alkaline Phosphatase 87 Total Protein 6.5 Albumin 3.5 Urine Color Ellen Urine Appearance Slcloudy Urine pH 5.0 Ur Specific [place] 1.026 Urine Protein Negative Urine Glucose (UA) Negative Urine Ketones Trace H Urine Blood Negative Urine Nitrite Negative Urine Bilirubin Negative Urine Urobilinogen 4.0 e.u/dl Ur Leukocyte Esterase Negative RPR Titer HIV 1&2 Antibody Screen HIV P24 Antigen 03/22/17 03/22/17 07:00 10:30 WBC RBC Hgb Hct MCV MCH MCHC RDW Plt Count MPV Sodium Potassium Chloride Carbon Dioxide Anion Gap BUN Creatinine Creat Clearance w eGFR Random Glucose Calcium Total Bilirubin AST ALT Alkaline Phosphatase Total Protein Albumin Urine Color Urine Appearance Urine pH Ur Specific [place] Urine Protein Urine Glucose (UA) Urine Ketones Urine Blood Urine Nitrite Urine Bilirubin Urine Urobilinogen Ur Leukocyte Esterase RPR Titer Nonreactive HIV 1&2 Antibody Screen Negative HIV P24 Antigen Negative LABS NOTED. Assessment: 03/23/17 13:59 WITHDRAWAL SYMPTOMS. MICROCYTIC ANEMIA. 03/23/17 14:02 Plan: CONTINUE DETOX. FEOSOL, 325 MG PO BIDWM. INCREASE DAILY PO FLUID INTAKE.
[2017-03-23] MEDS: FERROUS SO4 325 MG TABLET (FP) PO SCH (16:54)
[2017-03-23] MEDS ORDERED: LIDOCAINE VISCOUS 2% ORAL/TOP 20 ML UNIT-DOSE CUP MM ONE (20:41)
[2017-03-23] MEDS: THIAMINE HCL 100 MG TABLET (FP) PO SCH (22:02)
[2017-03-23] MEDS: MIRTAZAPINE 15 MG TABLET (FP) PO SCH (22:03)
[2017-03-23] MEDS: chlordiazePOXIDE 5 MG CAPSULE PO SCH (22:03)
[2017-03-24] MEDS: GABAPENTIN 100 MG CAPSULE (FP) PO SCH ×3 (05:26→22:05)
[2017-03-24] MEDS: chlordiazePOXIDE 5 MG CAPSULE PO SCH ×3 (05:26→16:39)
[2017-03-24] MEDS ORDERED: METHADONE HCL 10 MG TABLET ONE (07:28)
[2017-03-24] MEDS ORDERED: METHADONE HCL 40 MG DISPERSABLE TABLET ONE (07:29)
[2017-03-24] MEDS: METHOCARBAMOL 500 MG TABLET PO SCH ×3 (07:36→22:05)
[2017-03-24] MEDS: METHADONE 40 MG, METHADONE 10 MG PO SCH (07:36)
[2017-03-24] MEDS: FERROUS SO4 325 MG TABLET (FP) PO SCH ×2 (09:00→16:39)
[2017-03-24] MEDS: PRENATAL VITAMINS W/ FOLIC ACID TABLET (FP) PO SCH (10:10)
[2017-03-24] MEDS: DICLOFENAC SODIUM 75 MG TABLET.DR PO SCH (10:11)
[2017-03-24] MEDS: NICOTINE 14 MG/24 HOURS TOPICAL PATCH TD SCH (10:11)
--- NOTE | 2017-03-24 12:26 | PN ---
[facility] Progress Note (SOAP) Subjective: Body ache, back pain, interrupted sleep Objective: 03/24/17 12:23 Last Vital Signs Temp Pulse Resp BP Pulse Ox 97.0 F L 57 L 18 138/88 03/24/17 09:33 03/24/17 09:33 03/24/17 09:33 03/24/17 09:33 Laboratory Tests 03/21/17 03/22/17 03/22/17 23:07 07:00 07:00 WBC 5.4 RBC 4.45 Hgb 10.2 L Hct 32.8 L MCV 73.8 L MCH 23.0 L MCHC 31.2 L RDW 16.5 H Plt Count 196 MPV 9.4 Sodium 141 Potassium 4.2 Chloride 106 Carbon Dioxide 28 Anion Gap 7 L BUN 10 D Creatinine 1.0 Creat Clearance w eGFR > 60 Random Glucose 73 L D Calcium 8.3 L Total Bilirubin 0.5 AST 12 L D ALT 15 D Alkaline Phosphatase 87 Total Protein 6.5 Albumin 3.5 Urine Color Ellen Urine Appearance Slcloudy Urine pH 5.0 Ur Specific [place] 1.026 Urine Protein Negative Urine Glucose (UA) Negative Urine Ketones Trace H Urine Blood Negative Urine Nitrite Negative Urine Bilirubin Negative Urine Urobilinogen 4.0 e.u/dl Ur Leukocyte Esterase Negative RPR Titer HIV 1&2 Antibody Screen HIV P24 Antigen 03/22/17 03/22/17 07:00 10:30 WBC RBC Hgb Hct MCV MCH MCHC RDW Plt Count MPV Sodium Potassium Chloride Carbon Dioxide Anion Gap BUN Creatinine Creat Clearance w eGFR Random Glucose Calcium Total Bilirubin AST ALT Alkaline Phosphatase Total Protein Albumin Urine Color Urine Appearance Urine pH Ur Specific [place] Urine Protein Urine Glucose (UA) Urine Ketones Urine Blood Urine Nitrite Urine Bilirubin Urine Urobilinogen Ur Leukocyte Esterase RPR Titer Nonreactive HIV 1&2 Antibody Screen Negative HIV P24 Antigen Negative Labs noted Assessment: 03/24/17 12:25 Withdrawal symptoms Plan: Continue detox Encouraged to drink lots of water for hydration
[2017-03-24] MEDS: ACETAMINOPHEN 325 MG TABLET (FP) PO PRN (20:45)
[2017-03-24] MEDS: THIAMINE HCL 100 MG TABLET (FP) PO SCH (22:05)
[2017-03-24] MEDS: MIRTAZAPINE 15 MG TABLET (FP) PO SCH (22:05)
[2017-03-24] MEDS: chlordiazePOXIDE HCL 10 MG CAPSULE PO SCH (22:05)
[2017-03-24] MEDS ORDERED: LIDOCAINE VISCOUS 2% ORAL/TOP 20 ML UNIT-DOSE CUP MM ONE (22:45)
[2017-03-25] MEDS ORDERED: METHADONE HCL 40 MG DISPERSABLE TABLET ONE (03:35)
[2017-03-25] MEDS ORDERED: METHADONE HCL 10 MG TABLET ONE (03:35)
[2017-03-25] MEDS: GABAPENTIN 100 MG CAPSULE (FP) PO SCH ×3 (05:50→22:02)
[2017-03-25] MEDS: chlordiazePOXIDE HCL 10 MG CAPSULE PO SCH ×3 (05:50→18:07)
[2017-03-25] MEDS: METHADONE 40 MG, METHADONE 10 MG PO SCH (05:50)
[2017-03-25] MEDS: METHOCARBAMOL 500 MG TABLET PO SCH ×3 (05:50→22:02)
[2017-03-25] MEDS: FERROUS SO4 325 MG TABLET (FP) PO SCH ×2 (07:00→18:07)
[2017-03-25] MEDS: DICLOFENAC SODIUM 75 MG TABLET.DR PO SCH (10:01)
[2017-03-25] MEDS: PRENATAL VITAMINS W/ FOLIC ACID TABLET (FP) PO SCH (10:01)
[2017-03-25] MEDS: NICOTINE 14 MG/24 HOURS TOPICAL PATCH TD SCH (10:02)
--- NOTE | 2017-03-25 11:55 | PN ---
S Progress Note (SOAP) Subjective: Diarrhea, back pain (patient stated he has h/o sciatica). Patient is scheduled for discharge home tomorrow. Objective: 03/25/17 11:54 Last Vital Signs Temp Pulse Resp BP Pulse Ox 96.4 F L 62 18 129/86 03/25/17 09:55 03/25/17 09:55 03/25/17 09:55 03/25/17 09:55 Laboratory Tests 03/21/17 03/22/17 03/22/17 23:07 07:00 07:00 WBC 5.4 RBC 4.45 Hgb 10.2 L Hct 32.8 L MCV 73.8 L MCH 23.0 L MCHC 31.2 L RDW 16.5 H Plt Count 196 MPV 9.4 Sodium 141 Potassium 4.2 Chloride 106 Carbon Dioxide 28 Anion Gap 7 L BUN 10 D Creatinine 1.0 Creat Clearance w eGFR > 60 Random Glucose 73 L D Calcium 8.3 L Total Bilirubin 0.5 AST 12 L D ALT 15 D Alkaline Phosphatase 87 Total Protein 6.5 Albumin 3.5 Urine Color Ellen Urine Appearance Slcloudy Urine pH 5.0 Ur Specific [place] 1.026 Urine Protein Negative Urine Glucose (UA) Negative Urine Ketones Trace H Urine Blood Negative Urine Nitrite Negative Urine Bilirubin Negative Urine Urobilinogen 4.0 e.u/dl Ur Leukocyte Esterase Negative RPR Titer HIV 1&2 Antibody Screen HIV P24 Antigen 03/22/17 03/22/17 07:00 10:30 WBC RBC Hgb Hct MCV MCH MCHC RDW Plt Count MPV Sodium Potassium Chloride Carbon Dioxide Anion Gap BUN Creatinine Creat Clearance w eGFR Random Glucose Calcium Total Bilirubin AST ALT Alkaline Phosphatase Total Protein Albumin Urine Color Urine Appearance Urine pH Ur Specific [place] Urine Protein Urine Glucose (UA) Urine Ketones Urine Blood Urine Nitrite Urine Bilirubin Urine Urobilinogen Ur Leukocyte Esterase RPR Titer Nonreactive HIV 1&2 Antibody Screen Negative HIV P24 Antigen Negative Labs noted Assessment: 03/25/17 11:54 Withdrawal symptoms Plan: Continue detox Encouraged to drink lots of water for hydration
[2017-03-25] MEDS: ACETAMINOPHEN 325 MG TABLET (FP) PO PRN (14:19)
[2017-03-25] MEDS: MIRTAZAPINE 15 MG TABLET (FP) PO SCH (22:02)
[2017-03-25] MEDS: THIAMINE HCL 100 MG TABLET (FP) PO SCH (22:02)
[2017-03-26] MEDS ORDERED: METHADONE HCL 10 MG TABLET ONE (03:33)
[2017-03-26] MEDS ORDERED: METHADONE HCL 40 MG DISPERSABLE TABLET ONE (03:33)
[2017-03-26] MEDS: GABAPENTIN 100 MG CAPSULE (FP) PO SCH (05:52)
[2017-03-26] MEDS: METHOCARBAMOL 500 MG TABLET PO SCH (05:52)
[2017-03-26] MEDS: METHADONE 40 MG, METHADONE 10 MG PO SCH (05:52)
[2017-03-26 06:20] VITALS: BP 114/81; PULSE 64; TEMP 97.3
--- NOTE | 2017-03-26 09:43 | DS ---
[facility] Detox Discharge Summary Admission Date: 03/21/17 Discharge Date: 03/26/17 - Physical Exam Results Vital Signs: Vital Signs Temperature 97.3 F L 03/26/17 06:19 Pulse Rate 64 03/26/17 06:19 Respiratory Rate 18 03/26/17 06:19 Blood Pressure 114/81 03/26/17 06:19 O2 Sat by Pulse Oximetry (%) - Treatment Hospital Course: Detox Protocol Followed, Detoxed Safely, Responded well, Discharged Condition Good - Medication Discharge Medications: Ambulatory Orders Albuterol Sulfate Inhaler - [Ventolin HFA Inhaler -] 2 inh PO Q6H #1 inh Acetaminophen with Codeine [Acetaminophen-Cod #3 Tablet] 1 tab PO Q6H PRN Diclofenac Sodium 75 mg PO DAILY 03/21/17 Gabapentin [Neurontin -] 100 mg PO Q8H 03/21/17 Methocarbamol [Robaxin -] 500 mg PO TID 03/21/17 Mirtazapine [Remeron -] 30 mg PO HS 03/21/17 Omeprazole 20 mg PO DAILY 03/21/17 Mirtazapine [Remeron -] 15 mg PO HS #30 tablet 03/22/17 - AMA Did Patient Leave Against Medical Advice: No
== END 2017-03-26 08:30 | disposition home or self-care (01) | DRG 773 ==
LOC: YASAS 18:58 → Y3N 22:51
PROVIDERS: ADMIT Internal Medicine; ATTEND Internal Medicine
PROC: HZ2ZZZZ Detoxification Services for Substance Abuse Treatment (ICD-10-PCS; principal; 2017-03-21)
DX: F11.23 Opioid dependence with withdrawal (principal); F10.230 Alcohol dependence with withdrawal, uncomplicated; F14.20 Cocaine dependence, uncomplicated; F17.213 Nicotine dependence, cigarettes, with withdrawal; F34.1 Dysthymic disorder; F19.24 Other psychoactive substance dependence with psychoactive substance-induced mood disorder; G47.00 Insomnia, unspecified; J45.22 Mild intermittent asthma with status asthmaticus; R76.11 Nonspecific reaction to tuberculin skin test without active tuberculosis; R63.4 Abnormal weight loss; Z68.25 Body mass index [BMI] 25.0-25.9, adult
CPT/HCPCS: 36415; 71020-TC; 80053; 81003; 85027; 86593; 87389; 93005; 93010

== ENCOUNTER 2018-04-14 16:25 | Inpatient (IN) | payer OTHER ==
[2018-04-14 21:04] VITALS: BMI 29.9
--- NOTE | 2018-04-14 21:24 | HP ---
CIWA Score Nausea/Vomitin ([id number] x 4) Muscle Tremors: 3 Anxiety: 2 Agitation: 3 Paroxysmal Sweats: 2 Orientation: 1-Uncertain about Date Tacttile Disturbances: 1-Very Mild Itch/Numbness Auditory Disturbances: 0-None Visual Disturbances: 0-None Headache: 3-Moderate CIWA-Ar Total Score: 18 - Admission Criteria OASAS Guidelines: Admission for Medically Managed Detox: Requires at least one of the followin. CIWA greater than 12 2. Seizures within the past 24 hours 3. Delirium tremens within the past 24 hours 4. Hallucinations within the past 24 hours 5. Acute intervention needed for co occurring medical disorder 6. Acute intervention needed for co occurring psychiatric disorder 7. Severe withdrawal that cannot be handled at a lower level of care (continued vomiting, continued diarrhea, abnormal vital signs) requiring intravenous medication and/or fluids 8. Admission ROS [facility] Chief Complaint: Alcohol withdrawal symptoms Allergies/Adverse Reactions: Allergies Allergy/AdvReac Type Severity Reaction Status Date / Time No Known Allergies Allergy Verified 04/14/18 21:07 History of Present Illness: 53 years old male with a long history of alcohol and cocaine withdrawal symptoms is seeking admission to detox. Patient was in detox last in 2016 at [facility]. He reports 27months of sobriety. He has medical history of Heart murmur, Sciatica/ Low back pain, Depression, Anxiety, Positive PPD and Asthma. He denies suicide attempt and suicidal ideation at this time. Patient reports that he is on Methadone 100mg at [facility]. Last day medicated is today, . Dose is yet to be verified by the nurse. Exam Limitations: No Limitations - Ebola screening Have you traveled outside of the country in the last 21 days: No Have you had contact with anyone from an Ebola affected area: No Have you been sick,other than usual withdrawal symptoms: No Do you have a fever: No Patient History - Patient Medical History Hx Anemia: No Hx Asthma: Yes (Albuterol) Hx Chronic Obstructive Pulmonary Disease (COPD): No Hx Cancer: No Hx Cardiac Disorders: Yes (Heart murmur) Hx Congestive Heart Failure: No Hx Hypertension: No Hx Hypercholesterolemia: No Hx Pacemaker: No HX Cerebrovascular Accident: No Hx Seizures: No Hx Dementia: No Hx Diabetes: No Hx Gastrointestinal Disorders: No Hx Liver Disease: No Hx Genitourinary Disorders: No Hx Sexually Transmitted Disorders: No Hx Renal Disease (ESRD): No Hx Thyroid Disease: No Hx Human Immunodeficiency Virus (HIV): No (Negative 2018) Hx Hepatitis C: No Hx Depression: Yes (Mirtazipine) Hx Suicide Attempt: No (Denies suicidal ideation at this time) Hx Bipolar Disorder: No Hx Schizophrenia: No Other Medical History: Anxiety - Not on medication, Sciatica/ low back pain - Gabapentin - Patient Surgical History Past Surgical History: No Hx Neurologic Surgery: No Hx Cataract Extraction: No Hx Cardiac Surgery: No Hx Lung Surgery: No Hx Abdominal Surgery: No Hx Appendectomy: No Hx Cholecystectomy: No Hx Genitourinary Surgery: No Hx Section: No Hx Orthopedic Surgery: No Anesthesia Reaction: No - PPD History Previous Implant?: Yes (PPD POSITIVE IN 1987. INH AND B-12 FOR A YEAR) Documented Results: Positive w/o proof Implanted On Prior [facility] Admission?: No PPD to be Administered?: No - Reproductive History Patient is a Female of Child Bearing Age (11 -55 yrs old): No (male) Patient : No - Smoking Cessation Smoking history: Current every day smoker Have you smoked in the past 12 months: Yes Aproximately how many cigarettes per day: 12 Cigars Per Day: 0 Hx Chewing Tobacco Use: No Initiated information on smoking cessation: Yes 'Breaking Loose' booklet given: 04/14/18 - Substance & Tx. History Hx Alcohol Use: Yes Hx Substance Use: Yes Substance Use Type: Alcohol, Heroin, Opiates Hx Substance Use Treatment: Yes ([facility]) - Substances Abused Alcohol Route: Oral Frequency: Daily Amount used: 40oz. BEER AND 1 PINT OF COCKTAIL DRINKS Age of first use: 17 Date of Last Use: 04/14/18 Heroin Route: SNIFF Frequency: Daily Amount used: 2- 3 BAGS Age of first use: 42 Date of Last Use: 04/14/18 Family Disease History - Family Disease History Family Disease History: CA: Father (Prostate- ), Mother (Breast - ), Other: Father Admission Physical Exam [facility] - Vital Signs Vital Signs: Vital Signs - 24 hr 04/14/18 20:56 Temperature 97.1 F L Pulse Rate 84 Respiratory 18 Rate Blood Pressure 150/84 - Physical General Appearance: Yes: Moderate Distress, Tremorous, Irritable, Sweating, Anxious HEENTM: Yes: EOMI, Normal ENT Inspection, Normal Voice, DANG Respiratory: Yes: Lungs Clear, Normal Breath Sounds, No Respiratory Distress Neck: Yes: Supple Breast: Yes: Breast Exam Deferred Cardiology: Yes: Regular Rhythm, Regular Rate Abdominal: Yes: Normal Bowel Sounds Genitourinary: Yes: Within Normal Limits Back: Yes: Normal Inspection Musculoskeletal: Yes: Back pain, Muscle Pain, Other (Left shoulder pain) Extremities: Yes: Tremors Neurological: Yes: expressive therapist II-XII NML intact, Alert, Normal Mood/Affect Integumentary: Yes: Warm Lymphatic: Yes: Within Normal Limits - Diagnostic (1) Anxiety Current Visit: Yes Status: Chronic (2) Heart murmur Current Visit: Yes Status: Chronic (3) Alcohol dependence with withdrawal, uncomplicated Current Visit: Yes Status: Chronic (4) Chronic lower back pain Current Visit: Yes Status: Chronic Qualifiers: Back pain laterality: right (5) Cocaine dependence Current Visit: Yes Status: Chronic Qualifiers: Substance use status: uncomplicated Qualified Code(s): F14.20 - Cocaine dependence, uncomplicated (6) Nicotine dependence Current Visit: Yes Status: Chronic Qualifiers: Nicotine product type: cigarettes Substance use status: uncomplicated Qualified Code(s): F17.210 - Nicotine dependence, cigarettes, uncomplicated (7) Opioid dependence on agonist therapy Current Visit: Yes Status: Chronic (8) Asthma Current Visit: Yes Status: Chronic Qualifiers: Asthma severity: mild Asthma persistence: intermittent (9) Depression (emotion) Current Visit: Yes Status: Chronic (10) Methadone maintenance therapy patient Current Visit: Yes Status: Chronic Comment: 60 MG PO DAILY VERIFICATION PENDING (11) Positive PPD, treated Current Visit: Yes Status: Chronic Cleared for Admission [facility] - Detox or Rehab [facility] Level of Care: Medically Managed Detox Regimen/Protocol: Librium [facility] Breath Alcohol Content Breath Alcohol Content: 0.031 Urine Drug Screen - Results Drug Screen Negative: No Urine Drug Screen Results: STEPHANIE-Cocaine, OPI-Opiates, MET-Methamphetamine, BZO- Benzodiazepines, FEN-Fentanyl
[2018-04-14] MEDS ORDERED: ACETAMINOPHEN 325 MG TABLET (FP) PO PRN (21:43)
[2018-04-14] MEDS ORDERED: NICOTINE POLACRILEX 2 MG GUM BC PRN (21:43)
[2018-04-14] MEDS ORDERED: guaiFENesin/D-METHORPHAN HB 10 ML UNIT-DOSE CUPS PO PRN (21:43)
[2018-04-14] MEDS ORDERED: LOPERAMIDE HCL 2 MG CAPSULE PO PRN (21:43)
[2018-04-14] MEDS ORDERED: chlordiazePOXIDE HCL 25 MG CAPSULE PO PRN (21:43)
[2018-04-14] MEDS ORDERED: MAGNESIUM CITRATE 300 ML BOTTLE PO PRN (21:43)
[2018-04-14] MEDS ORDERED: IBUPROFEN 400 MG TABLET (FP) PO PRN (21:43)
[2018-04-14] MEDS ORDERED: MENTHOL/PHENOL 1 EACH UD MM PRN (21:43)
[2018-04-14] MEDS ORDERED: MAGNESIUM HYDROX 2400MG/30ML ORAL SUSPENSION 30 ML CUP PO PRN (21:43)
[2018-04-14] MEDS ORDERED: MAG HYDROX/AL HYDROX/SIMETH 30 ML UNIT-DOSE CUP PO PRN (21:43)
[2018-04-14] MEDS ORDERED: P-EPHED 60MG/TRIPROLIDI 2.5MG TABLET PO PRN (21:43)
[2018-04-14] MEDS ORDERED: ALBUTEROL SO4 8 GM HFA INHALER IH SCH (21:45)
[2018-04-14] MEDS ORDERED: MELATONIN 5 MG TABLETS PO PRN (22:00)
[2018-04-14] MEDS: GABAPENTIN 400 MG CAPSULE (FP) PO SCH (22:31)
[2018-04-14] MEDS: chlordiazePOXIDE HCL 25 MG CAPSULE PO SCH (22:31)
[2018-04-14] MEDS: THIAMINE HCL 100 MG TABLET (FP) PO SCH (22:31)
[2018-04-15] MEDS: chlordiazePOXIDE HCL 25 MG CAPSULE PO SCH ×4 (05:24→22:07)
[2018-04-15] MEDS: GABAPENTIN 400 MG CAPSULE (FP) PO SCH ×3 (05:25→22:07)
[2018-04-15] MEDS ORDERED: ALBUTEROL SO4 8 GM HFA INHALER IH SCH (07:00)
[2018-04-15] MEDS ORDERED: METHADONE HCL 10 MG TABLET PO SCH (09:30)
[2018-04-15] MEDS ORDERED: ALBUTEROL SO4 8 GM HFA INHALER IH PRN (09:31)
[2018-04-15] MEDS ORDERED: METHADONE HCL 10 MG TABLET ONE (09:43)
[2018-04-15] MEDS ORDERED: METHADONE HCL 40 MG DISPERSABLE TABLET ONE (09:44)
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
[2018-04-15] MEDS: PRENATAL VITAMINS W/ FOLIC ACID TABLET (FP) PO SCH (10:23)
[2018-04-15] MEDS: METHADONE 80 MG, METHADONE 20 MG PO SCH (10:23)
[2018-04-15] MEDS: NICOTINE 21 MG/24 HOURS TOPICAL PATCH TD SCH (10:25)
[2018-04-15 11:52] LABS: ALBUMIN 3.3 g/dl (3.4-5.0); ALK PHOS 132 U/L (45-117); ANION GAP 8 MMOL/L (8-16); BILIRUBIN,TOTAL 0.2 mg/dL (0.2-1); BLOOD UREA NITROGEN 14 mg/dL (7-18); CALCIUM 8.4 mg/dL (8.5-10.1); CHLORIDE 105 mmol/L (98-107); CO2 27 mmol/L (21-32); GLUCOSE,RANDOM 110 mg/dL (74-106); POTASSIUM 4.2 mmol/L (3.5-5.1); SGOT/AST 14 U/L (15-37); SGPT/ALT 17 U/L (13-61); SODIUM 139 mmol/L (136-145); TOT PROT 6.6 g/dl (6.4-8.2)
[2018-04-15 11:56] LABS: HEMATOCRIT 33.3 % (35.4-49); HEMOGLOBIN 10.3 GM/dL (11.7-16.9); MCH 23.4 pg (25.7-33.7); MCHC 30.9 g/dl (32.0-35.9); MEAN CELL VOLUME 75.8 fl (80-96); MEAN PLT VOLUME 9.2 fl (7.5-11.1); PLATELET COUNT 226 K/MM3 (134-434); RBC 4.39 M/mm3 (4.00-5.60); RDW 15.1 % (11.9-15.9); WHITE BLOOD COUNT 5.1 K/mm3 (4.0-10.0)
--- NOTE | 2018-04-15 13:59 | PN ---
[facility] CIWA - CIWA Score Nausea/Vomitin-No Nausea/No Vomiting Muscle Tremors: 4-Moderate,w/Arms Extend Anxiety: 0-No Anxiety, at Ease Agitation: 0-Normal Activity Paroxysmal Sweats: 3 Orientation: 0-Oriented Tacttile Disturbances: 2-Mild Itch/Numbness/Burn Auditory Disturbances: 0-None Visual Disturbances: 2-Mild Sensitivity Headache: 0-None Present CIWA-Ar Total Score: 11 S Progress Note (SOAP) Subjective: Body Aches, Diarrhea, Tremors, Sweating. Objective: PATIENT A & O X 3, OBSERVED AMBULATING ON UNIT. IN NO ACUTE DISTRESS. 04/15/18 13:57 Vital Signs Temperature 98.8 F 04/15/18 13:11 Pulse Rate 84 04/15/18 13:11 Respiratory Rate 18 04/15/18 13:11 Blood Pressure 109/68 04/15/18 13:11 O2 Sat by Pulse Oximetry (%) Laboratory Tests 04/15/18 04/15/18 04/15/18 07:00 07:00 07:00 WBC 5.1 RBC 4.39 Hgb 10.3 L Hct 33.3 L MCV 75.8 L MCH 23.4 L MCHC 30.9 L RDW 15.1 Plt Count 226 MPV 9.2 Sodium 139 Potassium 4.2 Chloride 105 Carbon Dioxide 27 Anion Gap 8 BUN 14 Creatinine 1.0 Creat Clearance w eGFR > 60 Random Glucose 110 H Calcium 8.4 L Total Bilirubin 0.2 AST 14 L ALT 17 Alkaline Phosphatase 132 H Total Protein 6.6 Albumin 3.3 L RPR Titer Nonreactive LABS NOTED. Assessment: 04/15/18 13:59 WITHDRAWAL SYMPTOMS. ANEMIA (MICROCYTIC). 04/15/18 14:05 Plan: CONTINUE DETOX. INCREASE DAILY PO FLUID INTAKE. PRN IMMODIUM FOR DIARRHEA. FEOSOL, 325 MG PO BIDWM FOR MICROCYTIC ANEMIA.
[2018-04-15] MEDS: FERROUS SO4 325 MG TABLET (FP) PO SCH (17:25)
[2018-04-15] MEDS: THIAMINE HCL 100 MG TABLET (FP) PO SCH (22:07)
[2018-04-15] MEDS: MIRTAZAPINE 30 MG TABLET (FP) PO SCH (22:07)
[2018-04-16] MEDS ORDERED: METHADONE HCL 40 MG DISPERSABLE TABLET ONE (04:09)
[2018-04-16] MEDS ORDERED: METHADONE HCL 10 MG TABLET ONE (04:09)
[2018-04-16] MEDS: GABAPENTIN 400 MG CAPSULE (FP) PO SCH ×3 (05:29→21:59)
[2018-04-16] MEDS: METHADONE 80 MG, METHADONE 20 MG PO SCH (05:29)
[2018-04-16] MEDS: chlordiazePOXIDE HCL 25 MG CAPSULE PO SCH ×3 (05:29→16:50)
[2018-04-16] MEDS: FERROUS SO4 325 MG TABLET (FP) PO SCH ×2 (09:05→16:50)
[2018-04-16] MEDS: PRENATAL VITAMINS W/ FOLIC ACID TABLET (FP) PO SCH (10:05)
[2018-04-16] MEDS: NICOTINE 21 MG/24 HOURS TOPICAL PATCH TD SCH (10:06)
--- NOTE | 2018-04-16 16:18 | PN ---
S CIWA - CIWA Score Nausea/Vomitin-Mild Nausea/No Vomiting Muscle Tremors: 3 Anxiety: 1-Mildly Anxious Agitation: 2 Paroxysmal Sweats: 1-Minimal Palms Moist Orientation: 0-Oriented Tacttile Disturbances: 0-None Auditory Disturbances: 0-None Visual Disturbances: 0-None Headache: 1-Very Mild CIWA-Ar Total Score: 9 S Progress Note (SOAP) Subjective: mild gi distress less tremor otherwise ok Objective: 04/16/18 16:17 Vital Signs Temperature 98.6 F 04/16/18 13:46 Pulse Rate 62 04/16/18 13:46 Respiratory Rate 18 04/16/18 13:46 Blood Pressure 110/73 04/16/18 13:46 O2 Sat by Pulse Oximetry (%) Laboratory Last Values WBC 5.1 K/mm3 (4.0-10.0) 04/15/18 07:00 RBC 4.39 M/mm3 (4.00-5.60) 04/15/18 07:00 Hgb 10.3 GM/dL (11.7-16.9) L 04/15/18 07:00 Hct 33.3 % (35.4-49) L 04/15/18 07:00 MCV 75.8 fl (80-96) L 04/15/18 07:00 MCH 23.4 pg (25.7-33.7) L 04/15/18 07:00 MCHC 30.9 g/dl (32.0-35.9) L 04/15/18 07:00 RDW 15.1 % (11.9-15.9) 04/15/18 07:00 Plt Count 226 K/MM3 (134-434) 04/15/18 07:00 MPV 9.2 fl (7.5-11.1) 04/15/18 07:00 Sodium 139 mmol/L (136-145) 04/15/18 07:00 Potassium 4.2 mmol/L (3.5-5.1) 04/15/18 07:00 Chloride 105 mmol/L (98-107) 04/15/18 07:00 Carbon Dioxide 27 mmol/L (21-32) 04/15/18 07:00 Anion Gap 8 MMOL/L (8-16) 04/15/18 07:00 BUN 14 mg/dL (7-18) 04/15/18 07:00 Creatinine 1.0 mg/dL (0.55-1.3) 04/15/18 07:00 Creat Clearance w eGFR > 60 (>60) 04/15/18 07:00 Random Glucose 110 mg/dL (74-106) H 04/15/18 07:00 Calcium 8.4 mg/dL (8.5-10.1) L 04/15/18 07:00 Total Bilirubin 0.2 mg/dL (0.2-1) 04/15/18 07:00 AST 14 U/L (15-37) L 04/15/18 07:00 ALT 17 U/L (13-61) 04/15/18 07:00 Alkaline Phosphatase 132 U/L (45-117) H 04/15/18 07:00 Total Protein 6.6 g/dl (6.4-8.2) 04/15/18 07:00 Albumin 3.3 g/dl (3.4-5.0) L 04/15/18 07:00 RPR Titer Nonreactive (NONREACTIVE) 04/15/18 07:00 lab noted Assessment: 04/16/18 16:18 withdrawal sx Plan: continue detox
[2018-04-16] MEDS: MIRTAZAPINE 30 MG TABLET (FP) PO SCH (21:59)
[2018-04-16] MEDS: THIAMINE HCL 100 MG TABLET (FP) PO SCH (21:59)
[2018-04-16] MEDS: chlordiazePOXIDE 5 MG CAPSULE PO SCH (22:00)
[2018-04-17] MEDS ORDERED: METHADONE HCL 40 MG DISPERSABLE TABLET ONE (03:36)
[2018-04-17] MEDS ORDERED: METHADONE HCL 10 MG TABLET ONE (03:36)
[2018-04-17] MEDS: chlordiazePOXIDE 5 MG CAPSULE PO SCH ×2 (05:38→10:05)
[2018-04-17] MEDS: METHADONE 80 MG, METHADONE 20 MG PO SCH (05:39)
[2018-04-17] MEDS: GABAPENTIN 400 MG CAPSULE (FP) PO SCH (05:39)
[2018-04-17] MEDS: FERROUS SO4 325 MG TABLET (FP) PO SCH (07:23)
[2018-04-17 09:11] VITALS: BP 138/80; PULSE 79; TEMP 98
[2018-04-17] MEDS: NICOTINE 21 MG/24 HOURS TOPICAL PATCH TD SCH (10:05)
[2018-04-17] MEDS: PRENATAL VITAMINS W/ FOLIC ACID TABLET (FP) PO SCH (10:05)
--- NOTE | 2018-04-17 10:31 | DS ---
[facility] Detox Discharge Summary Admission Date: 04/14/18 Discharge Date: 04/17/18 - History Present History: Alcohol Dependence Additional Comments: 53 years old male admitted on 04/14/18 for alcohol withdrawal stabilization reported feeling better today preferred [facility] Pertinent Past History: 5N available for patient today - Physical Exam Results Vital Signs: Vital Signs Temperature 98 F 04/17/18 09:10 Pulse Rate 79 04/17/18 09:10 Respiratory Rate 20 04/17/18 09:10 Blood Pressure 138/80 04/17/18 09:10 O2 Sat by Pulse Oximetry (%) Pertinent Admission Physical Exam Findings: alcohol withdrawal sx Vital Signs Temperature 98 F 04/17/18 09:10 Pulse Rate 79 04/17/18 09:10 Respiratory Rate 20 04/17/18 09:10 Blood Pressure 138/80 04/17/18 09:10 O2 Sat by Pulse Oximetry (%) Laboratory Last Values WBC 5.1 K/mm3 (4.0-10.0) 04/15/18 07:00 RBC 4.39 M/mm3 (4.00-5.60) 04/15/18 07:00 Hgb 10.3 GM/dL (11.7-16.9) L 04/15/18 07:00 Hct 33.3 % (35.4-49) L 04/15/18 07:00 MCV 75.8 fl (80-96) L 04/15/18 07:00 MCH 23.4 pg (25.7-33.7) L 04/15/18 07:00 MCHC 30.9 g/dl (32.0-35.9) L 04/15/18 07:00 RDW 15.1 % (11.9-15.9) 04/15/18 07:00 Plt Count 226 K/MM3 (134-434) 04/15/18 07:00 MPV 9.2 fl (7.5-11.1) 04/15/18 07:00 Sodium 139 mmol/L (136-145) 04/15/18 07:00 Potassium 4.2 mmol/L (3.5-5.1) 04/15/18 07:00 Chloride 105 mmol/L (98-107) 04/15/18 07:00 Carbon Dioxide 27 mmol/L (21-32) 04/15/18 07:00 Anion Gap 8 MMOL/L (8-16) 04/15/18 07:00 BUN 14 mg/dL (7-18) 04/15/18 07:00 Creatinine 1.0 mg/dL (0.55-1.3) 04/15/18 07:00 Creat Clearance w eGFR > 60 (>60) 04/15/18 07:00 Random Glucose 110 mg/dL (74-106) H 04/15/18 07:00 Calcium 8.4 mg/dL (8.5-10.1) L 04/15/18 07:00 Total Bilirubin 0.2 mg/dL (0.2-1) 04/15/18 07:00 AST 14 U/L (15-37) L 04/15/18 07:00 ALT 17 U/L (13-61) 04/15/18 07:00 Alkaline Phosphatase 132 U/L (45-117) H 04/15/18 07:00 Total Protein 6.6 g/dl (6.4-8.2) 04/15/18 07:00 Albumin 3.3 g/dl (3.4-5.0) L 04/15/18 07:00 RPR Titer Nonreactive (NONREACTIVE) 04/15/18 07:00 lab noted - Treatment Hospital Course: Detox Protocol Followed, Detoxed Safely, Responded well, Discharged Condition Good, Rehab Referral Accepted Patient has Accepted a Rehab Referral to: [facility] - Medication Discharge Medications: Ambulatory Orders Mirtazapine [Remeron -] 30 mg PO HS #30 tablet 10/01/17 Gabapentin [Neurontin] 400 mg PO TID #90 capsule 10/15/17 Albuterol Sulfate Inhaler - [Ventolin HFA Inhaler -] 2 inh PO Q6H #1 inh - Diagnosis (1) Alcohol dependence with withdrawal, uncomplicated Current Visit: Yes Status: Acute (2) Asthma Current Visit: Yes Status: Chronic Qualifiers: Asthma severity: mild Asthma persistence: intermittent Asthma complication type: with status asthmaticus Qualified Code(s): J45.22 - Mild intermittent asthma with status asthmaticus (3) Nicotine dependence Current Visit: Yes Status: Acute Qualifiers: Nicotine product type: cigarettes Substance use status: in withdrawal Qualified Code(s): F17.213 - Nicotine dependence, cigarettes, with withdrawal (4) Drug-induced mood disorder Current Visit: Yes Status: Suspected - AMA Did Patient Leave Against Medical Advice: No
--- NOTE | 2018-04-17 11:59 | EKG ---
Test Reason : Blood Pressure : / mmHG Vent. Rate : 060 BPM Atrial Rate : 060 BPM P-R Int : 156 ms QRS Dur : 084 ms QT Int : 452 ms P-R-T Axes : 061 038 021 degrees QTc Int : 452 ms NORMAL SINUS RHYTHM NONSPECIFIC T WAVE ABNORMALITY ABNORMAL ECG WHEN COMPARED WITH ECG OF 22-MAR-2017 12:00, NO SIGNIFICANT CHANGE WAS FOUND Confirmed by BROOKE WALTERS, ALEX ([id number]) on 04/17/2018 11:59:09 AM Referred By: Confirmed By:ALEX COX MD
[2018-04-17] MEDS ORDERED: chlordiazePOXIDE HCL 10 MG CAPSULE PO SCH (23:00)
== END 2018-04-17 13:12 | disposition other institution (70) | DRG 773 ==
LOC: YASAS 16:25 → Y3N 21:14
PROVIDERS: ADMIT Neuromusculoskeletal Medicine & OMM; ATTEND Neuromusculoskeletal Medicine & OMM
PROC: HZ2ZZZZ Detoxification Services for Substance Abuse Treatment (ICD-10-PCS; principal; 2018-04-14)
DX: F10.230 Alcohol dependence with withdrawal, uncomplicated (principal); F11.20 Opioid dependence, uncomplicated; F14.20 Cocaine dependence, uncomplicated; F17.213 Nicotine dependence, cigarettes, with withdrawal; F19.24 Other psychoactive substance dependence with psychoactive substance-induced mood disorder; F19.282 Other psychoactive substance dependence with psychoactive substance-induced sleep disorder; F43.10 Post-traumatic stress disorder, unspecified; F41.9 Anxiety disorder, unspecified; F33.9 Major depressive disorder, recurrent, unspecified; D50.9 Iron deficiency anemia, unspecified; M54.5 Low back pain; G89.29 Other chronic pain; R01.1 Cardiac murmur, unspecified; R76.11 Nonspecific reaction to tuberculin skin test without active tuberculosis
CPT/HCPCS: 36415; 71046-TC-FY; 80053; 85027; 86593; 93005; 93010

== ENCOUNTER 2018-04-17 13:22 | Inpatient (IN) | payer OTHER ==
--- NOTE | 2018-04-17 10:32 | HP ---
[facility] Rehab Assess/Revision - Admission History Admitted to Rehab from: [facility] Date of Admission to Rehab: 04/17/18 - Findings Detox History & Physical reviewed: Yes Concur with findings: Yes Comments/Additional Findings: transferred from detox to rehab admission as per protocol Inpatient Rehab Admission - Initial Determination Are CD services needed?: Yes Free of communicable disease: Yes Not in need of hospitalization: Yes - Rehab Admission Criteria Previous failed treatment: Yes Poor recovery environment: Yes Comorbidities: Yes Lacks judgement: No Patient is meeting Inpatient Rehab admission criteria:: Yes
[~2018-04-17 13:22] MED LIST: ACETAMINOPHEN 325 MG TABLET (FP) PO PRN; IBUPROFEN 400 MG TABLET (FP) PO PRN; LOPERAMIDE HCL 2 MG CAPSULE PO PRN; MAG HYDROX/AL HYDROX/SIMETH 30 ML UNIT-DOSE CUP PO PRN; MAGNESIUM CITRATE 300 ML BOTTLE PO PRN; MAGNESIUM HYDROX 2400MG/30ML ORAL SUSPENSION 30 ML CUP PO PRN; MENTHOL/PHENOL 1 EACH UD MM PRN; P-EPHED 60MG/TRIPROLIDI 2.5MG TABLET PO PRN; guaiFENesin/D-METHORPHAN HB 10 ML UNIT-DOSE CUPS PO PRN
[2018-04-17] MEDS: GABAPENTIN 400 MG CAPSULE (FP) PO SCH ×2 (14:51→21:42)
[2018-04-17 15:24] VITALS: BMI 30.2
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
[2018-04-17] MEDS ORDERED: LIDOCAINE 5% TOPICAL PATCH TP ONE (18:30)
[2018-04-17] MEDS: THIAMINE HCL 100 MG TABLET (FP) PO SCH (21:42)
[2018-04-17] MEDS: MIRTAZAPINE 30 MG TABLET (FP) PO SCH (21:43)
[2018-04-17] MEDS: IBUPROFEN 400 MG TABLET (FP) PO PRN (21:43)
[2018-04-17] MEDS: LIDOCAINE PATCH REMOVAL MC SCH (21:44)
[2018-04-17] MEDS ORDERED: MELATONIN 5 MG TABLETS PO PRN (22:00)
[2018-04-18] MEDS ORDERED: METHADONE HCL 10 MG TABLET ONE (04:21)
[2018-04-18] MEDS ORDERED: METHADONE HCL 40 MG DISPERSABLE TABLET ONE (04:21)
[2018-04-18] MEDS ORDERED: METHADONE HCL 40 MG DISPERSABLE TABLET PO SCH (06:00)
[2018-04-18] MEDS: ALBUTEROL SO4 8 GM HFA INHALER IH PRN ×2 (06:17→21:56)
[2018-04-18] MEDS: METHADONE 80 MG, METHADONE 20 MG PO SCH (06:17)
[2018-04-18] MEDS: GABAPENTIN 400 MG CAPSULE (FP) PO SCH ×3 (06:18→21:53)
[2018-04-18] MEDS: LIDOCAINE 5% TOPICAL PATCH TP SCH (10:29)
[2018-04-18] MEDS: FERROUS SO4 325 MG TABLET (FP) PO SCH (10:29)
[2018-04-18] MEDS: PRENATAL VITAMINS W/ FOLIC ACID TABLET (FP) PO SCH (10:29)
[2018-04-18] MEDS: IBUPROFEN 400 MG TABLET (FP) PO PRN ×2 (10:30→21:53)
--- NOTE | 2018-04-18 13:16 | PN ---
[facility] Progress Note Note: PT WAS SEEN TODAY. C/O 'SEVERE BACK PAIN AND CURRENT MEDICATIONS NOT WORKING'. REVIEWED PT'S MEDS WITH HIM AND PT IS ON GABAPENTIN 400 MG PO TID, MOTRIN 800 MG PO Q8H AND LIDOCAINE PATCH 5% TD DAILY. PT NOW DENIES CURRENT PAIN STATING " I DON'T HAVE PAIN NOW. IT HAPPENS MOSTLY AT NIGHT AND IN THE MORNING BEFORE I GET UP". PT HAS BEEN OOB AMBULATING WITH NO DIFFICULTY. PARTICIPATING IN GROUPS. Vital Signs 04/18/18 06:52 Temperature 97.9 F Pulse Rate 57 L Respiratory 18 Rate Blood Pressure 140/95 NAD PLAN:CONTINUE PRESENT TREATMENT INCREASE PO FLUIDS TOLERATED FOLLOW UP WITH PMD AFTER REHAB FOR PAIN MANAGEMENT MODALITY. '
[2018-04-18] MEDS: MIRTAZAPINE 30 MG TABLET (FP) PO SCH (21:53)
[2018-04-18] MEDS: THIAMINE HCL 100 MG TABLET (FP) PO SCH (21:53)
[2018-04-18] MEDS: NICOTINE 14 MG/24 HOURS TOPICAL PATCH TD PRN (21:55)
[2018-04-19] MEDS: LIDOCAINE PATCH REMOVAL MC SCH ×2 (00:24→21:54)
[2018-04-19] MEDS ORDERED: METHADONE HCL 10 MG TABLET ONE (04:26)
[2018-04-19] MEDS ORDERED: METHADONE HCL 40 MG DISPERSABLE TABLET ONE (04:27)
[2018-04-19] MEDS: GABAPENTIN 400 MG CAPSULE (FP) PO SCH ×3 (06:35→21:54)
[2018-04-19] MEDS: METHADONE 80 MG, METHADONE 20 MG PO SCH (06:35)
[2018-04-19] MEDS: FERROUS SO4 325 MG TABLET (FP) PO SCH (10:17)
[2018-04-19] MEDS: PRENATAL VITAMINS W/ FOLIC ACID TABLET (FP) PO SCH (10:17)
[2018-04-19] MEDS: LIDOCAINE 5% TOPICAL PATCH TP SCH (10:17)
[2018-04-19] MEDS: THIAMINE HCL 100 MG TABLET (FP) PO SCH (21:53)
[2018-04-19] MEDS: MIRTAZAPINE 30 MG TABLET (FP) PO SCH (21:54)
[2018-04-20] MEDS ORDERED: METHADONE HCL 40 MG DISPERSABLE TABLET ONE (03:43)
[2018-04-20] MEDS ORDERED: METHADONE HCL 10 MG TABLET ONE (03:43)
[2018-04-20] MEDS: GABAPENTIN 400 MG CAPSULE (FP) PO SCH ×3 (06:07→21:39)
[2018-04-20] MEDS: METHADONE 80 MG, METHADONE 20 MG PO SCH (06:07)
[2018-04-20] MEDS: IBUPROFEN 400 MG TABLET (FP) PO PRN (06:10)
[2018-04-20] MEDS: NICOTINE POLACRILEX 2 MG GUM BUC PRN ×2 (07:23→19:07)
[2018-04-20] MEDS: ALBUTEROL SO4 8 GM HFA INHALER IH PRN ×2 (07:52→13:43)
[2018-04-20] MEDS: PRENATAL VITAMINS W/ FOLIC ACID TABLET (FP) PO SCH (10:29)
[2018-04-20] MEDS: FERROUS SO4 325 MG TABLET (FP) PO SCH (10:29)
[2018-04-20] MEDS: LIDOCAINE 5% TOPICAL PATCH TP SCH (10:29)
[2018-04-20] MEDS: THIAMINE HCL 100 MG TABLET (FP) PO SCH (21:39)
[2018-04-20] MEDS: MIRTAZAPINE 30 MG TABLET (FP) PO SCH (21:39)
[2018-04-20] MEDS: LIDOCAINE PATCH REMOVAL MC SCH (22:46)
[2018-04-21] MEDS ORDERED: METHADONE HCL 40 MG DISPERSABLE TABLET ONE (05:11)
[2018-04-21] MEDS ORDERED: METHADONE HCL 10 MG TABLET ONE (05:11)
[2018-04-21] MEDS: METHADONE 80 MG, METHADONE 20 MG PO SCH (06:25)
[2018-04-21] MEDS: GABAPENTIN 400 MG CAPSULE (FP) PO SCH ×3 (06:26→21:56)
[2018-04-21] MEDS: ALBUTEROL SO4 8 GM HFA INHALER IH PRN (06:28)
--- NOTE | 2018-04-21 08:59 | PN ---
S Progress Note Note: C/O IRRITATION TO RIGHT UPPER ARM AT SITE OF NICOTINE PATCH; LEFT SHOULDER PAIN ESPECIALLY IN THE MORNINGS ON AWAKENING AND DENIES PREVIOUS TRUAMA TO SHOULDER. LEFT SHOULDER: ACTIVE ROM WITH SLIGHT PAIN ON HAND RAISE. RIGHT UPPER ARM: A SPOT OF DRY SMALL RED SKIN RASH NOTED. DETOX ADMISSION LAB REVIEWED. CBC AND CMP WITH SLIGHT ABNORMAL VALUES. AST= 14 ALBUMIN = 3.3 HGB = 10.3 HCT = 33.3 MCV = 75.8 MCH = 23.4 MCHC = 30.9 A:ANEMIA JOINT PAIN P:ON MOTRIN PRN. BACITRACIN OINTMENT TO RIGHT ARM ON FEOSOL 325 MG PO DAILY DIETARY CONSULT REPEAT CBC AND CMP IN A.M ADDENDUM;PT INSIST HE WANTS TO RETRY NICOTINE PATCH BECAUSE HE DOES NOT WANT TO CRAVE FOR CIGARETTES. PT STATE HE WILL REPORT TO STAFF IF HE SEES ANY CHANGES. NURSE LAY REMINDED TO FOLLOW UP WITH PT.
[2018-04-21] MEDS: FERROUS SO4 325 MG TABLET (FP) PO SCH (10:12)
[2018-04-21] MEDS: PRENATAL VITAMINS W/ FOLIC ACID TABLET (FP) PO SCH (10:12)
[2018-04-21] MEDS: METHYL SALICYLATE/MENTHOL OINT 30 GM TUBE TP SCH ×2 (10:13→21:57)
[2018-04-21] MEDS: LIDOCAINE 5% TOPICAL PATCH TP SCH (10:13)
[2018-04-21] MEDS: IBUPROFEN 400 MG TABLET (FP) PO PRN ×2 (11:38→21:58)
[2018-04-21] MEDS: MIRTAZAPINE 30 MG TABLET (FP) PO SCH (21:56)
[2018-04-21] MEDS: THIAMINE HCL 100 MG TABLET (FP) PO SCH (21:56)
[2018-04-21] MEDS: LIDOCAINE PATCH REMOVAL MC SCH (21:57)
[2018-04-22] MEDS ORDERED: METHADONE HCL 10 MG TABLET ONE (04:11)
[2018-04-22] MEDS ORDERED: METHADONE HCL 40 MG DISPERSABLE TABLET ONE (04:12)
[2018-04-22] MEDS: GABAPENTIN 400 MG CAPSULE (FP) PO SCH ×3 (06:39→21:43)
[2018-04-22] MEDS: METHADONE 80 MG, METHADONE 20 MG PO SCH (06:39)
[2018-04-22] MEDS: PRENATAL VITAMINS W/ FOLIC ACID TABLET (FP) PO SCH (10:25)
[2018-04-22] MEDS: LIDOCAINE 5% TOPICAL PATCH TP SCH (10:25)
[2018-04-22] MEDS: FERROUS SO4 325 MG TABLET (FP) PO SCH (10:25)
[2018-04-22] MEDS: METHYL SALICYLATE/MENTHOL OINT 30 GM TUBE TP SCH ×2 (10:25→21:44)
[2018-04-22 13:24] LABS: HEMATOCRIT 31.5 % (35.4-49); HEMOGLOBIN 10.2 GM/dL (11.7-16.9); MCH 23.9 pg (25.7-33.7); MCHC 32.2 g/dl (32.0-35.9); MEAN CELL VOLUME 74.2 fl (80-96); MEAN PLT VOLUME 9.8 fl (7.5-11.1); PLATELET COUNT 194 K/MM3 (134-434); RBC 4.25 M/mm3 (4.00-5.60); RDW 15.5 % (11.9-15.9); WHITE BLOOD COUNT 5.9 K/mm3 (4.0-10.0)
[2018-04-22 13:34] LABS: ALBUMIN 3.2 g/dl (3.4-5.0); ALK PHOS 122 U/L (45-117); ANION GAP 6 MMOL/L (8-16); BILIRUBIN,TOTAL 0.5 mg/dL (0.2-1); BLOOD UREA NITROGEN 16 mg/dL (7-18); CALCIUM 8.3 mg/dL (8.5-10.1); CHLORIDE 102 mmol/L (98-107); CO2 31 mmol/L (21-32); CREATININE 0.8 mg/dL (0.55-1.3); GLUCOSE,RANDOM 113 mg/dL (74-106); POTASSIUM 4.5 mmol/L (3.5-5.1); SGOT/AST 84 U/L (15-37); SGPT/ALT 195 U/L (13-61); SODIUM 139 mmol/L (136-145); TOT PROT 6.6 g/dl (6.4-8.2)
[2018-04-22] MEDS: NICOTINE 14 MG/24 HOURS TOPICAL PATCH TD PRN (14:06)
[2018-04-22] MEDS: IBUPROFEN 400 MG TABLET (FP) PO PRN ×2 (18:46→21:44)
[2018-04-22] MEDS: THIAMINE HCL 100 MG TABLET (FP) PO SCH (21:43)
[2018-04-22] MEDS: MIRTAZAPINE 30 MG TABLET (FP) PO SCH (21:43)
[2018-04-22] MEDS: LIDOCAINE PATCH REMOVAL MC SCH (21:44)
[2018-04-23] MEDS ORDERED: METHADONE HCL 10 MG TABLET ONE (04:43)
[2018-04-23] MEDS ORDERED: METHADONE HCL 40 MG DISPERSABLE TABLET ONE (04:43)
[2018-04-23] MEDS: METHADONE 80 MG, METHADONE 20 MG PO SCH (06:32)
[2018-04-23] MEDS: GABAPENTIN 400 MG CAPSULE (FP) PO SCH ×3 (06:33→21:40)
[2018-04-23] MEDS: FUROSEMIDE 40 MG TABLET (FP) PO SCH (10:23)
[2018-04-23] MEDS: FERROUS SO4 325 MG TABLET (FP) PO SCH ×2 (10:23→21:40)
[2018-04-23] MEDS: PRENATAL VITAMINS W/ FOLIC ACID TABLET (FP) PO SCH (10:23)
[2018-04-23] MEDS: LIDOCAINE 5% TOPICAL PATCH TP SCH (10:24)
[2018-04-23] MEDS: NICOTINE 14 MG/24 HOURS TOPICAL PATCH TD PRN (10:24)
[2018-04-23] MEDS: METHYL SALICYLATE/MENTHOL OINT 30 GM TUBE TP SCH ×2 (10:25→21:41)
--- NOTE | 2018-04-23 10:38 | PN ---
S Progress Note Note: PT C/O BOTH FEET SWELLING X 3 DAYS. OOB WITH STEADY GAIT. ALERT O X 3. IN NAD. Vital Signs 04/23/18 04/23/18 06:52 10:00 Temperature 97.8 F Pulse Rate 58 L 73 Respiratory 18 Rate Blood Pressure 140/84 115/66 Laboratory Tests 04/22/18 04/22/18 10:08 10:08 WBC 5.9 RBC 4.25 Hgb 10.2 L Hct 31.5 L MCV 74.2 L MCH 23.9 L MCHC 32.2 RDW 15.5 Plt Count 194 MPV 9.8 Sodium 139 Potassium 4.5 Chloride 102 Carbon Dioxide 31 Anion Gap 6 L BUN 16 Creatinine 0.8 Creat Clearance w eGFR > 60 Random Glucose 113 H Calcium 8.3 L Total Bilirubin 0.5 AST 84 H ALT 195 H Alkaline Phosphatase 122 H Total Protein 6.6 Albumin 3.2 L REPEAT LABS NOTED ABOVE. PT REPORTS CHRONIC ANEMIA AND TAKES IRON SUPPLEMENTS AT HOME. EXTREMITIES:SLIGHT EDEMA TO RIGHT LOWER LEG>LEFT LOWER LEG. (+1) PITTING. A:LOWER EXTREMITIES EDEMA PLAN:ELEVATE BOTH LEGS WHILE IN BED LASIX 4O MG PO DAILY X 3 DAYS ON FEOSOL DAILY BUT WILL INCREASE TO BID
[2018-04-23] MEDS: IBUPROFEN 400 MG TABLET (FP) PO PRN (18:16)
[2018-04-23] MEDS: THIAMINE HCL 100 MG TABLET (FP) PO SCH (21:40)
[2018-04-23] MEDS: MIRTAZAPINE 30 MG TABLET (FP) PO SCH (21:40)
[2018-04-23] MEDS: LIDOCAINE PATCH REMOVAL MC SCH (21:41)
[2018-04-24] MEDS ORDERED: METHADONE HCL 10 MG TABLET ONE (04:18)
[2018-04-24] MEDS ORDERED: METHADONE HCL 40 MG DISPERSABLE TABLET ONE (04:18)
[2018-04-24] MEDS: METHADONE 80 MG, METHADONE 20 MG PO SCH (05:51)
[2018-04-24] MEDS: GABAPENTIN 400 MG CAPSULE (FP) PO SCH ×3 (06:31→21:45)
[2018-04-24] MEDS: FERROUS SO4 325 MG TABLET (FP) PO SCH ×2 (10:33→21:45)
[2018-04-24] MEDS: METHYL SALICYLATE/MENTHOL OINT 30 GM TUBE TP SCH ×2 (10:33→21:45)
[2018-04-24] MEDS: FUROSEMIDE 40 MG TABLET (FP) PO SCH (10:34)
[2018-04-24] MEDS: LIDOCAINE 5% TOPICAL PATCH TP SCH (10:34)
[2018-04-24] MEDS: PRENATAL VITAMINS W/ FOLIC ACID TABLET (FP) PO SCH (10:34)
[2018-04-24] MEDS: IBUPROFEN 400 MG TABLET (FP) PO PRN ×2 (10:35→21:46)
[2018-04-24] MEDS: MIRTAZAPINE 30 MG TABLET (FP) PO SCH (21:45)
[2018-04-24] MEDS: THIAMINE HCL 100 MG TABLET (FP) PO SCH (21:45)
[2018-04-24] MEDS: LIDOCAINE PATCH REMOVAL MC SCH (21:45)
[2018-04-25] MEDS ORDERED: METHADONE HCL 40 MG DISPERSABLE TABLET ONE (04:14)
[2018-04-25] MEDS ORDERED: METHADONE HCL 10 MG TABLET ONE (04:14)
[2018-04-25] MEDS: METHADONE 80 MG, METHADONE 20 MG PO SCH (06:44)
[2018-04-25] MEDS: GABAPENTIN 400 MG CAPSULE (FP) PO SCH ×3 (06:47→21:09)
[2018-04-25] MEDS: FUROSEMIDE 40 MG TABLET (FP) PO SCH (09:36)
[2018-04-25] MEDS: METHYL SALICYLATE/MENTHOL OINT 30 GM TUBE TP SCH ×2 (09:37→22:36)
[2018-04-25] MEDS: PRENATAL VITAMINS W/ FOLIC ACID TABLET (FP) PO SCH (09:37)
[2018-04-25] MEDS: LIDOCAINE 5% TOPICAL PATCH TP SCH (09:37)
[2018-04-25] MEDS: FERROUS SO4 325 MG TABLET (FP) PO SCH ×2 (09:37→21:09)
[2018-04-25] MEDS: IBUPROFEN 400 MG TABLET (FP) PO PRN ×2 (09:39→21:10)
[2018-04-25] MEDS: MIRTAZAPINE 30 MG TABLET (FP) PO SCH (21:09)
[2018-04-25] MEDS: THIAMINE HCL 100 MG TABLET (FP) PO SCH (21:09)
[2018-04-25] MEDS: LIDOCAINE PATCH REMOVAL MC SCH (22:36)
[2018-04-26] MEDS ORDERED: METHADONE HCL 40 MG DISPERSABLE TABLET ONE (04:09)
[2018-04-26] MEDS ORDERED: METHADONE HCL 10 MG TABLET ONE (04:09)
[2018-04-26] MEDS: GABAPENTIN 400 MG CAPSULE (FP) PO SCH ×3 (06:31→21:33)
[2018-04-26] MEDS: METHADONE 80 MG, METHADONE 20 MG PO SCH (06:32)
[2018-04-26] MEDS: FERROUS SO4 325 MG TABLET (FP) PO SCH ×2 (10:31→21:33)
[2018-04-26] MEDS: METHYL SALICYLATE/MENTHOL OINT 30 GM TUBE TP SCH ×2 (10:31→21:34)
[2018-04-26] MEDS: LIDOCAINE 5% TOPICAL PATCH TP SCH (10:31)
[2018-04-26] MEDS: PRENATAL VITAMINS W/ FOLIC ACID TABLET (FP) PO SCH (10:31)
[2018-04-26] MEDS: IBUPROFEN 400 MG TABLET (FP) PO PRN ×2 (10:32→21:36)
[2018-04-26] MEDS: MIRTAZAPINE 30 MG TABLET (FP) PO SCH (21:33)
[2018-04-26] MEDS: THIAMINE HCL 100 MG TABLET (FP) PO SCH (21:33)
[2018-04-26] MEDS: LIDOCAINE PATCH REMOVAL MC SCH (21:34)
[2018-04-27] MEDS ORDERED: METHADONE HCL 40 MG DISPERSABLE TABLET ONE (05:15)
[2018-04-27] MEDS ORDERED: METHADONE HCL 10 MG TABLET ONE (05:15)
[2018-04-27] MEDS: GABAPENTIN 400 MG CAPSULE (FP) PO SCH ×3 (06:27→21:33)
[2018-04-27] MEDS: METHADONE 80 MG, METHADONE 20 MG PO SCH (06:27)
[2018-04-27] MEDS: PRENATAL VITAMINS W/ FOLIC ACID TABLET (FP) PO SCH (10:16)
[2018-04-27] MEDS: LIDOCAINE 5% TOPICAL PATCH TP SCH (10:16)
[2018-04-27] MEDS: METHYL SALICYLATE/MENTHOL OINT 30 GM TUBE TP SCH ×2 (10:16→21:35)
[2018-04-27] MEDS: FERROUS SO4 325 MG TABLET (FP) PO SCH ×2 (10:16→21:33)
[2018-04-27] MEDS: IBUPROFEN 400 MG TABLET (FP) PO PRN ×2 (10:17→21:34)
[2018-04-27] MEDS: THIAMINE HCL 100 MG TABLET (FP) PO SCH (21:33)
[2018-04-27] MEDS: MIRTAZAPINE 30 MG TABLET (FP) PO SCH (21:33)
[2018-04-27] MEDS: LIDOCAINE PATCH REMOVAL MC SCH (21:35)
[2018-04-28] MEDS ORDERED: METHADONE HCL 10 MG TABLET ONE (04:14)
[2018-04-28] MEDS ORDERED: METHADONE HCL 40 MG DISPERSABLE TABLET ONE (04:14)
[2018-04-28] MEDS: GABAPENTIN 400 MG CAPSULE (FP) PO SCH ×3 (06:42→21:38)
[2018-04-28] MEDS: METHADONE 80 MG, METHADONE 20 MG PO SCH (06:42)
[2018-04-28] MEDS: LIDOCAINE 5% TOPICAL PATCH TP SCH (10:53)
[2018-04-28] MEDS: PRENATAL VITAMINS W/ FOLIC ACID TABLET (FP) PO SCH (10:53)
[2018-04-28] MEDS: FERROUS SO4 325 MG TABLET (FP) PO SCH ×2 (10:53→21:38)
[2018-04-28] MEDS: METHYL SALICYLATE/MENTHOL OINT 30 GM TUBE TP SCH ×2 (10:54→21:39)
[2018-04-28] MEDS: MIRTAZAPINE 30 MG TABLET (FP) PO SCH (21:38)
[2018-04-28] MEDS: THIAMINE HCL 100 MG TABLET (FP) PO SCH (21:38)
[2018-04-28] MEDS: LIDOCAINE PATCH REMOVAL MC SCH (21:39)
[2018-04-28] MEDS: IBUPROFEN 400 MG TABLET (FP) PO PRN (21:40)
[2018-04-29] MEDS ORDERED: METHADONE HCL 40 MG DISPERSABLE TABLET ONE (04:12)
[2018-04-29] MEDS ORDERED: METHADONE HCL 10 MG TABLET ONE (04:12)
[2018-04-29] MEDS: METHADONE 80 MG, METHADONE 20 MG PO SCH (06:24)
[2018-04-29] MEDS: GABAPENTIN 400 MG CAPSULE (FP) PO SCH ×3 (06:24→21:33)
[2018-04-29] MEDS: FERROUS SO4 325 MG TABLET (FP) PO SCH ×2 (11:11→21:33)
[2018-04-29] MEDS: PRENATAL VITAMINS W/ FOLIC ACID TABLET (FP) PO SCH (11:11)
[2018-04-29] MEDS: LIDOCAINE 5% TOPICAL PATCH TP SCH (11:12)
[2018-04-29] MEDS: NICOTINE 14 MG/24 HOURS TOPICAL PATCH TD PRN (11:12)
[2018-04-29] MEDS: METHYL SALICYLATE/MENTHOL OINT 30 GM TUBE TP SCH ×2 (11:12→21:34)
[2018-04-29] MEDS: IBUPROFEN 400 MG TABLET (FP) PO PRN (14:57)
[2018-04-29] MEDS: THIAMINE HCL 100 MG TABLET (FP) PO SCH (21:33)
[2018-04-29] MEDS: MIRTAZAPINE 30 MG TABLET (FP) PO SCH (21:33)
[2018-04-29] MEDS: LIDOCAINE PATCH REMOVAL MC SCH (21:34)
[2018-04-30] MEDS ORDERED: METHADONE HCL 10 MG TABLET ONE (04:11)
[2018-04-30] MEDS ORDERED: METHADONE HCL 40 MG DISPERSABLE TABLET ONE (04:12)
[2018-04-30] MEDS: METHADONE 80 MG, METHADONE 20 MG PO SCH (06:22)
[2018-04-30] MEDS: GABAPENTIN 400 MG CAPSULE (FP) PO SCH (06:22)
[2018-04-30 07:08] VITALS: BP 136/84; PULSE 65; TEMP 98
[2018-04-30] MEDS: LIDOCAINE 5% TOPICAL PATCH TP SCH (10:09)
[2018-04-30] MEDS: METHYL SALICYLATE/MENTHOL OINT 30 GM TUBE TP SCH (10:09)
[2018-04-30] MEDS: PRENATAL VITAMINS W/ FOLIC ACID TABLET (FP) PO SCH (10:09)
[2018-04-30] MEDS: FERROUS SO4 325 MG TABLET (FP) PO SCH (10:09)
--- NOTE | 2018-04-30 14:53 | PN ---
[facility] Progress Note Note: MEDICAL DISCHARGE NOTES: PT SUCCESSFULLY COMPLETED REHAB TREATMENT TODAY. ALERT O X 3. MET WITH COUNSELOR TODAY BEFORE DISCHARGE AND PT HAS BEEN REFERRED TO [facility] FOR AFTERCARE. PT WAS INSTRUCTED TO FOLLOW UP WITH HIS PCP AT HIS DOCTORS OFFICE ON [place], [place] FOR MEDICAL MANAGEMENT. PT REPORTS HE HAS OWN MEDICATIONS BUT ELECTRONICALLY SENT IN [facility] FOR FEOSOL 325 MG PO DAILY #14 TO PT'S PHARMACY FOR HOME ASSESSMENT NURSE. Vital Signs 04/30/18 07:07 Temperature 98.0 F Pulse Rate 65 Respiratory 18 Rate Blood Pressure 136/84 Laboratory Tests 04/22/18 04/22/18 10:08 10:08 WBC 5.9 RBC 4.25 Hgb 10.2 L Hct 31.5 L MCV 74.2 L MCH 23.9 L MCHC 32.2 RDW 15.5 Plt Count 194 MPV 9.8 Sodium 139 Potassium 4.5 Chloride 102 Carbon Dioxide 31 Anion Gap 6 L BUN 16 Creatinine 0.8 Creat Clearance w eGFR > 60 Random Glucose 113 H Calcium 8.3 L Total Bilirubin 0.5 AST 84 H ALT 195 H Alkaline Phosphatase 122 H Total Protein 6.6 Albumin 3.2 L NAD MEDICALLY STABLE PLAN:FOLLOW UP AT [facility] FOR CD AFTERCARE RECOMMENDED. FOLLOW UP WITH YOUR PCP(PT SAYS HE DOES NOT REMEMBER NAME BUT KNOWS WHERE TO GO ) AT [facility] [place], [place].
== END 2018-04-30 10:35 | disposition home or self-care (01) | DRG 772 ==
LOC: YASAS 13:22 → Y5N 13:24
PROVIDERS: ADMIT Psychiatry & Neurology Psychiatry; ATTEND Psychiatry & Neurology Psychiatry
PROC: HZ42ZZZ Group Counseling for Substance Abuse Treatment, Cognitive-Behavioral (ICD-10-PCS; principal; 2018-04-17)
DX: F10.20 Alcohol dependence, uncomplicated (principal); F11.20 Opioid dependence, uncomplicated; F14.20 Cocaine dependence, uncomplicated; F17.213 Nicotine dependence, cigarettes, with withdrawal; F43.10 Post-traumatic stress disorder, unspecified; F32.9 Major depressive disorder, single episode, unspecified; D50.9 Iron deficiency anemia, unspecified; M54.5 Low back pain; G89.29 Other chronic pain; R60.0 Localized edema; J45.909 Unspecified asthma, uncomplicated; R01.1 Cardiac murmur, unspecified
CPT/HCPCS: 36415; 80053; 85027

== ENCOUNTER 2018-10-14 15:53 | Inpatient (IN) | payer OTHER ==
[2018-10-14 19:58] VITALS: BMI 24.4
--- NOTE | 2018-10-14 21:14 | HP ---
COWS - Scale Resting Pulse: 1= NE 81-100 Sweatin= Chills/Flushing Restless Observation: 1= Difficult to Sit Still Pupil Size: 1= Pupils >than Normal Bone or Joint Aches: 1= Mild Discomfort Runny Nose/ Eye Tearin= Runny Nose/Eyes GI Upset > 30mins: 2= Nausea/Diarrhea Tremor Observation: 1= Tremor [place], Not Seen Yawning Observation: 1= 1-2x During Session Anxiety or Irritability: 1=Feels Anxious/Irritable Goose Flesh Skin: 3=Piloerection COWS Score: 15 CIWA Score - Admission Criteria [facility]ASAS Guidelines: Admission for Medically Managed Detox: Requires at least one of the followin. CIWA greater than 12 2. Seizures within the past 24 hours 3. Delirium tremens within the past 24 hours 4. Hallucinations within the past 24 hours 5. Acute intervention needed for co occurring medical disorder 6. Acute intervention needed for co occurring psychiatric disorder 7. Severe withdrawal that cannot be handled at a lower level of care (continued vomiting, continued diarrhea, abnormal vital signs) requiring intravenous medication and/or fluids 8. Admission [facility] Chief Complaint: heroin detox Allergies/Adverse Reactions: Allergies Allergy/AdvReac Type Severity Reaction Status Date / Time No Known Allergies Allergy Verified 10/14/18 19:51 History of Present Illness: 53 yo with sciatica, knee pain, is at [facility] for day rehab. Pt was getting suboxone but has continued to use cocaine, alcohol and heroin. heroin- 3 bags/day suboxone- occ alcohol-1 beer/day and once a week pint of vodka cocaine- $50/day DUR-suboxone last 08/27/18 Utox: opioids, Mop, BUp. ADRI-0 - Ebola screening Have you traveled outside of the country in the last 21 days: No Have you had contact with anyone from an Ebola affected area: No Do you have a fever: No - Review of Systems Constitutional: No Symptoms Reported EENT: reports: No Symptoms Reported Respiratory: reports: No Symptoms reported Cardiac: reports: No Symptoms Reported Patient History - Patient Medical History Hx Anemia: No Hx Asthma: Yes (With treatment) Hx Chronic Obstructive Pulmonary Disease (COPD): No Hx Cancer: No Hx Cardiac Disorders: Yes (Heart Murmur) Hx Congestive Heart Failure: No Hx Hypertension: No Hx Hypercholesterolemia: No Hx Pacemaker: No HX Cerebrovascular Accident: No Hx Seizures: No Hx Dementia: No Hx Diabetes: No Hx Gastrointestinal Disorders: No Hx Liver Disease: No Hx Genitourinary Disorders: No Hx Sexually Transmitted Disorders: No Hx Renal Disease (ESRD): No Hx Thyroid Disease: No Hx Human Immunodeficiency Virus (HIV): No (Negative 2018) Hx Hepatitis C: No Hx Depression: Yes Hx Suicide Attempt: No Hx Bipolar Disorder: No Hx Schizophrenia: No - Patient Surgical History Past Surgical History: No Hx Neurologic Surgery: No Hx Cataract Extraction: No Hx Cardiac Surgery: No Hx Lung Surgery: No Hx Breast Surgery: No Hx Breast Biopsy: No Hx Abdominal Surgery: No Hx Appendectomy: No Hx Cholecystectomy: No Hx Genitourinary Surgery: No Hx Section: No Hx Orthopedic Surgery: No Anesthesia Reaction: No (N/A) - Smoking Cessation Smoking history: Current every day smoker Have you smoked in the past 12 months: Yes Aproximately how many cigarettes per day: 12 Cigars Per Day: 0 Hx Chewing Tobacco Use: No Initiated information on smoking cessation: Yes 'Breaking Loose' booklet given: 10/14/18 - Substance & Tx. History Substance Use Type: Alcohol, Cocaine, Heroin - Substances abused Heroin Substance route: Inhalation Frequency: Daily Amount used: 3 bags Age of first use: 42 Date of last use: 10/14/18 Cocaine Substance route: Smoking Frequency: Daily Amount used: $50 Age of first use: 20 Date of last use: 10/14/18 Alcohol Substance route: Oral Frequency: 3-6 times per week Amount used: Beer (2) 40oz Age of first use: 15 Date of last use: 10/14/18 Family Disease History - Family Disease History Family Disease History: CA: Father (Prostate- ), Mother (Breast - ), Other: Father Admission Physical Exam [facility] - Vital Signs Vital Signs: Vital Signs - 24 hr 10/14/18 19:43 Pulse Rate 65 Respiratory 18 Rate Blood Pressure 133/77 - Physical General Appearance: Yes: Within Normal Limits HEENTM: Yes: EOMI Respiratory: Yes: Within Normal Limits Neck: Yes: Within Normal Limits Cardiology: Yes: Within Normal Limits Abdominal: Yes: Within Normal Limits Genitourinary: Yes: Within Normal Limits, Scrotal Edema Musculoskeletal: Yes: Within Normal Limits Extremities: Yes: Within Normal Limits Neurological: Yes: Within Normal Limits, Fully Oriented Integumentary: Yes: Within Normal Limits Lymphatic: Yes: Within Normal Limits - Diagnostic (1) Nicotine dependence Current Visit: No Status: Acute Qualifiers: Nicotine product type: cigarettes Substance use status: in withdrawal Qualified Code(s): F17.213 - Nicotine dependence, cigarettes, with withdrawal (2) Opioid dependence with withdrawal Current Visit: No Status: Acute Breathalyzer - Breathalyzer Breathalyzer: 0 Urine Drug Screen - Test Device Lot number: [id number] Expiration date: 07/29/20 - Control Is test valid?: Yes - Results Drug screen NEGATIVE: No Urine drug screen results: STEPHANIE-Cocaine, MOP-Opiates, BUP-Suboxone Inpatient Rehab Admission - Rehab Decision to Admit Inpatient rehab admission?: No
[2018-10-14] MEDS ORDERED: MELATONIN 5 MG TABLETS PO PRN (21:19)
[2018-10-14] MEDS ORDERED: MAGNESIUM CITRATE 300 ML BOTTLE PO PRN (21:19)
[2018-10-14] MEDS ORDERED: NALOXONE HCL 0.4 MG/ML VIAL IM PRN (21:19)
[2018-10-14] MEDS ORDERED: MAG HYDROX/AL HYDROX/SIMETH 30 ML UNIT-DOSE CUP PO PRN (21:19)
[2018-10-14] MEDS ORDERED: IBUPROFEN 400 MG TABLET (FP) PO PRN (21:19)
[2018-10-14] MEDS ORDERED: hydrOXYzine PAMOATE 25 MG CAPSULE (FP) PO PRN (21:19)
[2018-10-14] MEDS ORDERED: MAGNESIUM HYDROX 2400MG/30ML ORAL SUSPENSION 30 ML CUP PO PRN (21:19)
[2018-10-14] MEDS ORDERED: METHOCARBAMOL 500 MG TABLET PO PRN (21:19)
[2018-10-14] MEDS ORDERED: ACETAMINOPHEN 325 MG TABLET (FP) PO PRN ×2 (21:19)
[2018-10-14] MEDS ORDERED: METHADONE HCL 10 MG TABLET (FOR DETOX USE ONLY) PO ONE (21:19)
[2018-10-14] MEDS ORDERED: clonazePAM 0.5 MG TABLET PO PRN (21:19)
[2018-10-14] MEDS ORDERED: MENTHOL/PHENOL 1 EACH UD MM PRN (21:19)
[2018-10-14] MEDS ORDERED: cloNIDine HCL 0.1 MG TABLET PO PRN (21:19)
[2018-10-14] MEDS: THIAMINE HCL 100 MG TABLET (FP) PO SCH (22:06)
[2018-10-14] MEDS: MIRTAZAPINE 30 MG TABLET (FP) PO SCH (22:06)
[2018-10-14] MEDS: GABAPENTIN 400 MG CAPSULE (FP) PO SCH (22:06)
[2018-10-14] MEDS: ALBUTEROL SO4 8 GM HFA INHALER IH SCH (22:09)
[2018-10-15 09:41] LABS: HEMATOCRIT 28.4 % (35.4-49); HEMOGLOBIN 9.2 GM/dL (11.7-16.9); MCH 23.5 pg (25.7-33.7); MCHC 32.4 g/dl (32.0-35.9); MEAN CELL VOLUME 72.4 fl (80-96); MEAN PLT VOLUME 9.1 fl (7.5-11.1); PLATELET COUNT 277 K/MM3 (134-434); RBC 3.92 M/mm3 (4.00-5.60); RDW 14.8 % (11.9-15.9); WHITE BLOOD COUNT 4.4 K/mm3 (4.0-10.0)
[2018-10-15] MEDS ORDERED: METHADONE HCL 5 MG TABLET (FOR DETOX USE ONLY) ONE (09:44)
[2018-10-15] MEDS ORDERED: METHADONE HCL 10 MG TABLET (FOR DETOX USE ONLY) ONE (09:44)
[2018-10-15] MEDS ORDERED: METHADONE (DETOX) 20 MG, METHADONE (DETOX) 5 MG PO ONE (10:00)
[2018-10-15 10:25] LABS: ALBUMIN 2.9 g/dl (3.4-5.0); BILIRUBIN,TOTAL 0.2 mg/dL (0.2-1); CALCIUM 8.6 mg/dL (8.5-10.1); CREATININE 0.9 mg/dL (0.55-1.3); POTASSIUM 3.3 mmol/L (3.5-5.1); TOT PROT 5.8 g/dl (6.4-8.2)
[2018-10-15] MEDS: PRENATAL VITAMINS W/ FOLIC ACID TABLET (FP) PO SCH (10:31)
[2018-10-15] MEDS: NICOTINE 21 MG/24 HOURS TOPICAL PATCH TD SCH (10:33)
[2018-10-15] MEDS: ALBUTEROL SO4 8 GM HFA INHALER IH SCH (10:35)
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
--- NOTE | 2018-10-15 11:13 | PN ---
BHS COWS - Scale Resting Pulse: 0= [place] 80 or Below Sweatin= Chills/Flushing Restless Observation: 1= Difficult to Sit Still Pupil Size: 0= Normal to Room Light Bone or Joint Aches: 1= Mild Discomfort Runny Nose/ Eye Tearin= Runny Nose/Eyes GI Upset > 30mins: 1= Stomach Cramp Tremor Observation of Outstretched Hands: 0= None Yawning Observation: 1= 1-2x During Session Anxiety or Irritability: 2=Irritable/Anxious Goose Flesh Skin: 0=Smooth Skin COWS Score: 9 BHS Progress Note (SOAP) Subjective: Patient on opioid detox c/o of body aches, chills, interrupted sleep. Reports hx of tx w/ Bup but relapsed, plans to attend rehab post detox. Others' Prescriptions Patient Name: Kumar Morel Date: 1965 Address: [address] [place] [address] Sex: Male Rx Written Rx Dispensed Drug Quantity Days Supply Prescriber Name 08/27/2018 08/27/2018 buprenorphine-naloxone 8-2 mg sl film 28 14 Nandini Avelar NP 08/20/2018 08/20/2018 buprenorphine-naloxone 8-2 mg sl film 14 7 Nandini Avelar NP 08/13/2018 08/13/2018 buprenorphine-naloxone 8-2 mg sl film 7 7 Nandini Avelar NP Objective: 10/15/18 11:10 Vital Signs Temperature 97.7 F 10/15/18 07:20 Pulse Rate 51 L 10/15/18 07:20 Respiratory Rate 18 10/15/18 07:20 Blood Pressure 129/63 10/15/18 07:20 O2 Sat by Pulse Oximetry (%) Laboratory Last Values WBC 4.4 K/mm3 (4.0-10.0) 10/15/18 07:20 RBC 3.92 M/mm3 (4.00-5.60) L 10/15/18 07:20 Hgb 9.2 GM/dL (11.7-16.9) L 10/15/18 07:20 Hct 28.4 % (35.4-49) L 10/15/18 07:20 MCV 72.4 fl (80-96) L 10/15/18 07:20 MCH 23.5 pg (25.7-33.7) L 10/15/18 07:20 MCHC 32.4 g/dl (32.0-35.9) 10/15/18 07:20 RDW 14.8 % (11.9-15.9) 10/15/18 07:20 Plt Count 277 K/MM3 (134-434) D 10/15/18 07:20 MPV 9.1 fl (7.5-11.1) 10/15/18 07:20 Sodium 142 mmol/L (136-145) 10/15/18 07:20 Potassium 3.3 mmol/L (3.5-5.1) L 10/15/18 07:20 Chloride 109 mmol/L (98-107) H 10/15/18 07:20 Carbon Dioxide 30 mmol/L (21-32) 10/15/18 07:20 Anion Gap 3 MMOL/L (8-16) L 10/15/18 07:20 BUN 12.0 mg/dL (7-18) 10/15/18 07:20 Creatinine 0.9 mg/dL (0.55-1.3) 10/15/18 07:20 Est GFR (CKD-EPI)AfAm 111.83 10/15/18 07:20 Est GFR (CKD-EPI)NonAf 96.49 10/15/18 07:20 Random Glucose 78 mg/dL (74-106) 10/15/18 07:20 Calcium 8.6 mg/dL (8.5-10.1) 10/15/18 07:20 Total Bilirubin 0.2 mg/dL (0.2-1) 10/15/18 07:20 AST 8 U/L (15-37) L 10/15/18 07:20 ALT 11 U/L (13-61) L 10/15/18 07:20 Alkaline Phosphatase 63 U/L (45-117) 10/15/18 07:20 Total Protein 5.8 g/dl (6.4-8.2) L 10/15/18 07:20 Albumin 2.9 g/dl (3.4-5.0) L 10/15/18 07:20 repeat CBC Assessment: 10/15/18 11:12 Patient stable , Aox3 no acute distress full ROM, no gait disturbance, ambulating in the unit Plan: increase PO fluids repeat CBC continue detox continue to monitor
[2018-10-15] MEDS: GABAPENTIN 400 MG CAPSULE (FP) PO SCH (13:34)
[2018-10-15] MEDS: THIAMINE HCL 100 MG TABLET (FP) PO SCH (22:31)
[2018-10-15] MEDS: MIRTAZAPINE 30 MG TABLET (FP) PO SCH (22:31)
[2018-10-16] MEDS: ALBUTEROL SO4 8 GM HFA INHALER IH SCH ×2 (05:00→22:15)
[2018-10-16] MEDS: GABAPENTIN 400 MG CAPSULE (FP) PO SCH ×2 (06:42→22:22)
[2018-10-16] MEDS ORDERED: METHADONE HCL 10 MG TABLET (FOR DETOX USE ONLY) PO ONE (10:00)
[2018-10-16 10:22] LABS: BASO % 1.1 % (0-2.0); EOS % 14.8 % (0-4.5); HEMOGLOBIN 10.3 GM/dL (11.7-16.9); MCH 23.7 pg (25.7-33.7); MCHC 32.2 g/dl (32.0-35.9); MEAN CELL VOLUME 73.6 fl (80-96); MEAN PLT VOLUME 8.9 fl (7.5-11.1); MONO % 8.3 % (3.8-10.2); NEUT % 17.8 % (42.8-82.8); RBC 4.35 M/mm3 (4.00-5.60); WHITE BLOOD COUNT 4.6 K/mm3 (4.0-10.0)
[2018-10-16 10:37] LABS: PLATELET COUNT 293 K/MM3 (134-434)
[2018-10-16] MEDS: NICOTINE 21 MG/24 HOURS TOPICAL PATCH TD SCH (10:41)
[2018-10-16] MEDS: PRENATAL VITAMINS W/ FOLIC ACID TABLET (FP) PO SCH (10:41)
[2018-10-16] MEDS: BISMUTH SUBSALICYLATE 524 MG/30 ML UD PO PRN (10:42)
--- NOTE | 2018-10-16 14:20 | PN ---
S COWS - Scale Resting Pulse: 0= [place] 80 or Below Sweatin= Chills/Flushing Restless Observation: 1= Difficult to Sit Still Pupil Size: 0= Normal to Room Light Bone or Joint Aches: 2= Severe Diffuse Aches Runny Nose/ Eye Tearin= Runny Nose/Eyes GI Upset > 30mins: 1= Stomach Cramp Tremor Observation of Outstretched Hands: 1= Tremor [place], Not Seen Yawning Observation: 1= 1-2x During Session Anxiety or Irritability: 2=Irritable/Anxious Goose Flesh Skin: 0=Smooth Skin COWS Score: 11 S Progress Note (SOAP) Subjective: c/o back pain, chills, sweats, interrupted sleep Objective: 10/16/18 14:18 Vital Signs Temperature 97.7 F 10/16/18 13:25 Pulse Rate 62 10/16/18 13:25 Respiratory Rate 18 10/16/18 13:25 Blood Pressure 128/69 10/16/18 13:25 O2 Sat by Pulse Oximetry (%) Laboratory Last Values WBC 4.6 K/mm3 (4.0-10.0) 10/16/18 07:00 RBC 4.35 M/mm3 (4.00-5.60) 10/16/18 07:00 Hgb 10.3 GM/dL (11.7-16.9) L 10/16/18 07:00 Hct 32.0 % (35.4-49) L 10/16/18 07:00 MCV 73.6 fl (80-96) L 10/16/18 07:00 MCH 23.7 pg (25.7-33.7) L 10/16/18 07:00 MCHC 32.2 g/dl (32.0-35.9) 10/16/18 07:00 RDW 15.0 % (11.9-15.9) 10/16/18 07:00 Plt Count 293 K/MM3 (134-434) 10/16/18 07:00 MPV 8.9 fl (7.5-11.1) 10/16/18 07:00 Absolute Neuts (auto) 0.8 K/mm3 (1.5-8.0) L 10/16/18 07:00 Neutrophils % 17.8 % (42.8-82.8) L 10/16/18 07:00 Lymphocytes % 58.0 % (8-40) H 10/16/18 07:00 Monocytes % 8.3 % (3.8-10.2) 10/16/18 07:00 Eosinophils % 14.8 % (0-4.5) H 10/16/18 07:00 Basophils % 1.1 % (0-2.0) 10/16/18 07:00 Nucleated RBC % 0 % (0-0) 10/16/18 07:00 Sodium 142 mmol/L (136-145) 10/15/18 07:20 Potassium 3.3 mmol/L (3.5-5.1) L 10/15/18 07:20 Chloride 109 mmol/L (98-107) H 10/15/18 07:20 Carbon Dioxide 30 mmol/L (21-32) 10/15/18 07:20 Anion Gap 3 MMOL/L (8-16) L 10/15/18 07:20 BUN 12.0 mg/dL (7-18) 10/15/18 07:20 Creatinine 0.9 mg/dL (0.55-1.3) 10/15/18 07:20 Est GFR (CKD-EPI)AfAm 111.83 10/15/18 07:20 Est GFR (CKD-EPI)NonAf 96.49 10/15/18 07:20 Random Glucose 78 mg/dL (74-106) 10/15/18 07:20 Calcium 8.6 mg/dL (8.5-10.1) 10/15/18 07:20 Total Bilirubin 0.2 mg/dL (0.2-1) 10/15/18 07:20 AST 8 U/L (15-37) L 10/15/18 07:20 ALT 11 U/L (13-61) L 10/15/18 07:20 Alkaline Phosphatase 63 U/L (45-117) 10/15/18 07:20 Total Protein 5.8 g/dl (6.4-8.2) L 10/15/18 07:20 Albumin 2.9 g/dl (3.4-5.0) L 10/15/18 07:20 RPR Titer Nonreactive (NONREACTIVE) 10/15/18 07:20 Assessment: 10/16/18 14:19 Aox3 no acute distress, ambulating in the unit withdrawal sx anemia Plan: follow up with PCP post d/c continue detox continue to monitor
[2018-10-16] MEDS: MIRTAZAPINE 30 MG TABLET (FP) PO SCH (22:22)
[2018-10-16] MEDS: THIAMINE HCL 100 MG TABLET (FP) PO SCH (22:22)
[2018-10-17] MEDS: ALBUTEROL SO4 8 GM HFA INHALER IH SCH ×4 (03:30→22:42)
[2018-10-17] MEDS: GABAPENTIN 400 MG CAPSULE (FP) PO SCH ×4 (06:05→22:43)
[2018-10-17] MEDS: BISMUTH SUBSALICYLATE 524 MG/30 ML UD PO PRN (08:31)
[2018-10-17] MEDS ORDERED: METHADONE HCL 10 MG TABLET (FOR DETOX USE ONLY) ONE (09:54)
[2018-10-17] MEDS ORDERED: METHADONE HCL 5 MG TABLET (FOR DETOX USE ONLY) ONE (09:54)
[2018-10-17] MEDS ORDERED: METHADONE (DETOX) 10 MG, METHADONE (DETOX) 5 MG PO ONE (10:00)
[2018-10-17] MEDS: NICOTINE 21 MG/24 HOURS TOPICAL PATCH TD SCH (10:09)
[2018-10-17] MEDS: PRENATAL VITAMINS W/ FOLIC ACID TABLET (FP) PO SCH (10:09)
--- NOTE | 2018-10-17 11:42 | PN ---
BHS COWS - Scale Resting Pulse: 0= [place] 80 or Below Sweatin= Chills/Flushing Restless Observation: 1= Difficult to Sit Still Pupil Size: 0= Normal to Room Light Bone or Joint Aches: 1= Mild Discomfort Runny Nose/ Eye Tearin= Nasal Congestion GI Upset > 30mins: 0= None Tremor Observation of Outstretched Hands: 1= Tremor [place], Not Seen Yawning Observation: 1= 1-2x During Session Anxiety or Irritability: 1=Feels Anxious/Irritable Goose Flesh Skin: 0=Smooth Skin COWS Score: 7 BHS Progress Note (SOAP) Subjective: body aches sweats restless poor appetite Objective: 10/17/18 11:41 Vital Signs Temperature 98.2 F 10/17/18 09:11 Pulse Rate 60 10/17/18 09:11 Respiratory Rate 18 10/17/18 09:11 Blood Pressure 146/89 10/17/18 09:11 O2 Sat by Pulse Oximetry (%) aaox3 ambulating no acute distress Assessment: 10/17/18 11:41 withdrawal sx Plan: continue detox increase fluids ensure bid
[2018-10-17] MEDS: THIAMINE HCL 100 MG TABLET (FP) PO SCH (22:42)
[2018-10-17] MEDS: MIRTAZAPINE 30 MG TABLET (FP) PO SCH (22:42)
[2018-10-17] MEDS: MELATONIN 5 MG TABLETS PO PRN (22:44)
[2018-10-18] MEDS: ALBUTEROL SO4 8 GM HFA INHALER IH SCH (04:25)
[2018-10-18] MEDS: GABAPENTIN 400 MG CAPSULE (FP) PO SCH ×3 (06:25→22:47)
[2018-10-18] MEDS ORDERED: METHADONE HCL 10 MG TABLET (FOR DETOX USE ONLY) PO ONE (10:00)
[2018-10-18] MEDS: PRENATAL VITAMINS W/ FOLIC ACID TABLET (FP) PO SCH (10:20)
[2018-10-18] MEDS: NICOTINE 21 MG/24 HOURS TOPICAL PATCH TD SCH (10:20)
--- NOTE | 2018-10-18 10:38 | PN ---
BHS COWS - Scale Resting Pulse: 0= [place] 80 or Below Sweatin= Chills/Flushing Restless Observation: 1= Difficult to Sit Still Pupil Size: 0= Normal to Room Light Bone or Joint Aches: 0= None Runny Nose/ Eye Tearin= None GI Upset > 30mins: 0= None Tremor Observation of Outstretched Hands: 0= None Yawning Observation: 1= 1-2x During Session Anxiety or Irritability: 2=Irritable/Anxious Goose Flesh Skin: 0=Smooth Skin COWS Score: 5 BHS Progress Note (SOAP) Subjective: c/o interrupted sleep and irritability. Objective: 10/18/18 10:37 Vital Signs 10/18/18 10/18/18 10/18/18 03:30 07:39 09:49 Temperature 97.5 F L 97.7 F Pulse Rate 52 L 67 Respiratory 18 18 18 Rate Blood Pressure 128/73 154/77 Lab Results WBC 4.6 K/mm3 (4.0-10.0) 10/16/18 07:00 RBC 4.35 M/mm3 (4.00-5.60) 10/16/18 07:00 Hgb 10.3 GM/dL (11.7-16.9) L 10/16/18 07:00 Hct 32.0 % (35.4-49) L 10/16/18 07:00 MCV 73.6 fl (80-96) L 10/16/18 07:00 MCHC 32.2 g/dl (32.0-35.9) 10/16/18 07:00 RDW 15.0 % (11.9-15.9) 10/16/18 07:00 Plt Count 293 K/MM3 (134-434) 10/16/18 07:00 Sodium 142 mmol/L (136-145) 10/15/18 07:20 Potassium 3.3 mmol/L (3.5-5.1) L 10/15/18 07:20 Chloride 109 mmol/L (98-107) H 10/15/18 07:20 Carbon Dioxide 30 mmol/L (21-32) 10/15/18 07:20 Anion Gap 3 MMOL/L (8-16) L 10/15/18 07:20 BUN 12.0 mg/dL (7-18) 10/15/18 07:20 Creatinine 0.9 mg/dL (0.55-1.3) 10/15/18 07:20 Random Glucose 78 mg/dL (74-106) 10/15/18 07:20 Calcium 8.6 mg/dL (8.5-10.1) 10/15/18 07:20 Labs noted. Assessment: 10/18/18 10:37 AOX3, in no acute distress. Full ROM, ambulating in the unit. mild withdrawal symptoms. Plan: continue detox.
--- NOTE | 2018-10-18 14:03 | PN ---
BHS Progress Note Note: Prescriptions not sent, pt states she has enough home.
[2018-10-18] MEDS: MELATONIN 5 MG TABLETS PO PRN (22:47)
[2018-10-18] MEDS: MIRTAZAPINE 30 MG TABLET (FP) PO SCH (22:47)
[2018-10-18] MEDS: THIAMINE HCL 100 MG TABLET (FP) PO SCH (22:47)
[2018-10-19] MEDS: GABAPENTIN 400 MG CAPSULE (FP) PO SCH (05:55)
[2018-10-19] MEDS ORDERED: METHADONE HCL 5 MG TABLET (FOR DETOX USE ONLY) PO ONE (06:00)
[2018-10-19 09:19] VITALS: BP 134/84; PULSE 66; TEMP 98.8
--- NOTE | 2018-10-19 12:00 | DS ---
[facility] Detox Discharge Summary Admission Date: 10/14/18 Discharge Date: 10/19/18 - History Present History: Alcohol Dependence, Cocaine Dependence, Opioid Dependence - Physical Exam Results Vital Signs: Vital Signs Temperature 98.8 F 10/19/18 09:18 Pulse Rate 66 10/19/18 09:18 Respiratory Rate 18 10/19/18 09:18 Blood Pressure 134/84 10/19/18 09:18 O2 Sat by Pulse Oximetry (%) - Treatment Hospital Course: Detox Protocol Followed, Detoxed Safely, Responded well, Discharged Condition Good, Rehab Referral Accepted Patient has Accepted a Rehab Referral to: Patient to go to [facility] day [employer] [employer] [facility] representative rehab at [facility] - Medication Discharge Medications: Ambulatory Orders Gabapentin [Neurontin] 400 mg PO TID #90 capsule 10/15/17 Albuterol Sulfate Inhaler - [Ventolin HFA Inhaler -] 2 inh PO Q6H #1 inh Methadone [Dolophine -] 100 mg PO DAILY@0600 04/17/18 Ferrous Sulfate [Feosol] 325 mg PO DAILY #14 tablet 04/29/18 Mirtazapine [Remeron -] 30 mg PO HS #30 tablet 04/30/18 Buprenorphine/Naloxone [Suboxone 8Mg/2Mg Sl Film -] 1 each SL DAILY #7 packet MDD 8mg/2mg 08/13/18 Buprenorphine/Naloxone [Suboxone 8Mg/2Mg Sl Film -] 1 each SL BID #14 packet MDD 16mg 08/20/18 Buprenorphine/Naloxone [Suboxone 8Mg/2Mg Sl Film -] 1 each SL BID #28 packet MDD 16mg 08/27/18 - Diagnosis (1) Alcohol dependence Status: Chronic Qualifiers: Substance use status: uncomplicated Qualified Code(s): F10.20 - Alcohol dependence, uncomplicated (2) Cocaine dependence Status: Chronic Qualifiers: Substance use status: uncomplicated Qualified Code(s): F14.20 - Cocaine dependence, uncomplicated (3) Nicotine dependence Status: Chronic Qualifiers: Nicotine product type: cigarettes Substance use status: in withdrawal Qualified Code(s): F17.213 - Nicotine dependence, cigarettes, with withdrawal (4) Opioid dependence Status: Chronic Qualifiers: Substance use status: uncomplicated Qualified Code(s): F11.20 - Opioid dependence, uncomplicated - AMA Did Patient Leave Against Medical Advice: No
== END 2018-10-19 09:15 | disposition home or self-care (01) | DRG 773 ==
LOC: YASAS 15:53 → Y6N 21:32
PROVIDERS: ADMIT Surgery; ATTEND Surgery
PROC: HZ2ZZZZ Detoxification Services for Substance Abuse Treatment (ICD-10-PCS; principal; 2018-10-14)
DX: F11.23 Opioid dependence with withdrawal (principal); F10.230 Alcohol dependence with withdrawal, uncomplicated; F14.20 Cocaine dependence, uncomplicated; F17.213 Nicotine dependence, cigarettes, with withdrawal; F32.9 Major depressive disorder, single episode, unspecified; F43.10 Post-traumatic stress disorder, unspecified; D50.9 Iron deficiency anemia, unspecified; J45.22 Mild intermittent asthma with status asthmaticus; R01.1 Cardiac murmur, unspecified; M54.5 Low back pain; G89.29 Other chronic pain
CPT/HCPCS: 36415; 80053; 85025; 85027; 86480; 86593; 90853

== ENCOUNTER 2018-10-22 14:20 | Inpatient (IN) | payer OTHER | END 2018-11-03 10:45 | disposition home or self-care (01) | LOC: YASAS 14:20 → Y5N 22:00 ==

== ENCOUNTER 2022-06-23 17:26 | Inpatient (IN) | payer OTHER ==
[2022-06-23 18:11] VITALS: BMI 22.3
[2022-06-23] MEDS ORDERED: chlordiazePOXIDE HCL 25 MG CAPSULE PO PRN (20:33)
[2022-06-23] MEDS ORDERED: MAGNESIUM HYDROX 2400MG/30ML ORAL SUSPENSION 30 ML CUP PO PRN (20:39)
[2022-06-23] MEDS ORDERED: NALOXONE HCL (KLOXXADO) 8 MG SPRAY NS PRN (20:39)
[2022-06-23] MEDS ORDERED: DICYCLOMINE HCL 10 MG CAPSULE PO PRN (20:39)
[2022-06-23] MEDS ORDERED: NALOXONE HCL 0.4 MG/ML VIAL IM PRN (20:39)
[2022-06-23] MEDS ORDERED: BISMUTH SUBSALICYLATE 524 MG/30 ML PO PRN (20:39)
[2022-06-23] MEDS ORDERED: BENZONATATE 200 MG CAPSULE PO PRN (20:39)
[2022-06-23] MEDS ORDERED: IBUPROFEN 400 MG TABLET (FP) PO PRN (20:39)
[2022-06-23] MEDS ORDERED: ACETAMINOPHEN 325 MG TABLET (FP) PO PRN (20:39)
[2022-06-23] MEDS ORDERED: LOPERAMIDE HCL 2 MG CAPSULE PO PRN (20:39)
[2022-06-23] MEDS ORDERED: ONDANSETRON *ODT* 4 MG TABLET SL PRN (20:39)
[2022-06-23] MEDS ORDERED: IBUPROFEN 600 MG TABLET (FP) PO PRN (20:39)
[2022-06-23] MEDS ORDERED: guaiFENesin 600 MG TABLET.ER (FP) PO PRN (20:39)
[2022-06-23] MEDS ORDERED: MAG HYDROX/AL HYDROX/SIMETH 30 ML UNIT-DOSE CUP PO PRN (20:39)
[2022-06-23] MEDS ORDERED: NICOTINE 10 MG CARTRIDGE (INHALER) IH PRN (20:39)
[2022-06-23] MEDS ORDERED: hydrOXYzine PAMOATE 25 MG CAPSULE (FP) PO PRN (20:39)
[2022-06-23] MEDS ORDERED: POLYETHYLENE GLYCOL (HEALTHYLAX) 3350 17 GM PACKET PO PRN (20:39)
[2022-06-23] MEDS ORDERED: BENZOCAINE/MENTHOL (CHLORASEPTIC ) LOZENGE MM PRN (20:39)
[2022-06-23] MEDS: THIAMINE HCL 100 MG TABLET (FP) PO SCH (21:46)
[2022-06-23] MEDS: MELATONIN 5 MG TABLETS PO SCH (21:47)
[2022-06-23] MEDS: chlordiazePOXIDE HCL 25 MG CAPSULE PO SCH (22:00)
[2022-06-24] MEDS: chlordiazePOXIDE HCL 25 MG CAPSULE PO SCH ×4 (05:57→22:06)
[2022-06-24] MEDS ORDERED: methaDONE HCL 10 MG TABLET PO ONE (09:48)
[2022-06-24] MEDS ORDERED: methaDONE 40 MG, methaDONE 20 MG PO ONE (10:00)
[2022-06-24 10:28] LABS: HEMOGLOBIN 10.6 GM/dL (11.7-16.9); MCH 23.4 pg (25.7-33.7); MCHC 32.2 g/dl (32.0-35.9); MEAN CELL VOLUME 72.7 fl (80-96); PLATELET COUNT 262 10^3/uL (134-434); RBC 4.54 M/mm3 (4.00-5.60); RDW 16.1 % (11.9-15.9); WHITE BLOOD COUNT 4.9 K/mm3 (4.0-10.0)
[2022-06-24 10:32] LABS: ALBUMIN 2.9 g/dl (3.4-5.0); BLOOD UREA NITROGEN 15.1 mg/dL (7-18); CALCIUM 8.5 mg/dL (8.5-10.1)
[2022-06-24 10:35] LABS: CREATININE 0.8 mg/dL (0.55-1.3)
[2022-06-24 10:36] LABS: BILIRUBIN,TOTAL 0.7 mg/dL (0.2-1); TOT PROT 6.6 g/dl (6.4-8.2)
[2022-06-24] MEDS: METHOCARBAMOL 500 MG TABLET PO PRN (10:44)
[2022-06-24] MEDS: PRENATAL VITAMINS W/ FOLIC ACID TABLET (FP) PO SCH (10:46)
[2022-06-24] MEDS: NICOTINE 21 MG/24 HOURS TOPICAL PATCH TD SCH (10:46)
[2022-06-24 21:43] LABS: URINE APPEARANCE CLEAR; URINE BILIRUBIN NEGATIVE (NEGATIVE); URINE COLOR YELLOW; URINE GLUCOSE (UA) NEGATIVE (NEGATIVE); URINE KETONE TRACE (NEGATIVE); URINE LEUK ESTERASE NEGATIVE (NEGATIVE); URINE NITRITE NEGATIVE (NEGATIVE); URINE PROTEIN TRACE (NEGATIVE)
[2022-06-24] MEDS: MELATONIN 5 MG TABLETS PO SCH (22:07)
[2022-06-24] MEDS: THIAMINE HCL 100 MG TABLET (FP) PO SCH (22:07)
[2022-06-25] MEDS: chlordiazePOXIDE HCL 25 MG CAPSULE PO SCH ×4 (05:49→22:14)
[2022-06-25] MEDS: methaDONE 40 MG, methaDONE 20 MG PO SCH (05:51)
[2022-06-25] MEDS ORDERED: methaDONE HCL 10 MG TABLET PO SCH (06:00)
[2022-06-25] MEDS: PRENATAL VITAMINS W/ FOLIC ACID TABLET (FP) PO SCH (10:41)
[2022-06-25] MEDS: NICOTINE 21 MG/24 HOURS TOPICAL PATCH TD SCH (10:41)
[2022-06-25] MEDS: THIAMINE HCL 100 MG TABLET (FP) PO SCH (22:13)
[2022-06-25] MEDS: MELATONIN 5 MG TABLETS PO SCH (22:13)
[2022-06-26] MEDS ORDERED: chlordiazePOXIDE HCL 10 MG CAPSULE PO PRN
[2022-06-26] MEDS: methaDONE 40 MG, methaDONE 20 MG PO SCH (05:45)
[2022-06-26] MEDS: chlordiazePOXIDE HCL 10 MG CAPSULE PO SCH ×4 (05:47→22:22)
[2022-06-26] MEDS: METHOCARBAMOL 500 MG TABLET PO PRN (10:40)
[2022-06-26] MEDS: PRENATAL VITAMINS W/ FOLIC ACID TABLET (FP) PO SCH (10:40)
[2022-06-26] MEDS: NICOTINE 21 MG/24 HOURS TOPICAL PATCH TD SCH (10:41)
[2022-06-26] MEDS ORDERED: ALBUTEROL SO4 HFA INHALER IH PRN (15:56)
[2022-06-26] MEDS: THIAMINE HCL 100 MG TABLET (FP) PO SCH (22:21)
[2022-06-26] MEDS: MELATONIN 5 MG TABLETS PO SCH (22:22)
[2022-06-27] MEDS: chlordiazePOXIDE HCL 10 MG CAPSULE PO SCH ×2 (05:48→17:42)
[2022-06-27] MEDS: methaDONE 40 MG, methaDONE 20 MG PO SCH (05:48)
[2022-06-27] MEDS: PRENATAL VITAMINS W/ FOLIC ACID TABLET (FP) PO SCH (10:18)
[2022-06-27] MEDS: NICOTINE 21 MG/24 HOURS TOPICAL PATCH TD SCH (10:18)
[2022-06-27 12:02] LABS: BASO % 0.9 % (0-2.0); EOS % 8.3 % (0-4.5); HEMOGLOBIN 9.3 GM/dL (11.7-16.9); LYMPH % 43.9 % (8-40); MCH 23.4 pg (25.7-33.7); MCHC 32.2 g/dl (32.0-35.9); MEAN CELL VOLUME 72.8 fl (80-96); MEAN PLT VOLUME 8.8 fl (7.5-11.1); MONO % 10.3 % (3.8-10.2); NEUT % 36.6 % (42.8-82.8); PLATELET COUNT 240 10^3/uL (134-434); RBC 3.98 M/mm3 (4.00-5.60); RDW 16.2 % (11.9-15.9); WHITE BLOOD COUNT 3.6 K/mm3 (4.0-10.0)
[2022-06-27 17:19] VITALS: RESP 18
[2022-06-27] MEDS: MELATONIN 5 MG TABLETS PO SCH (22:22)
[2022-06-27] MEDS: THIAMINE HCL 100 MG TABLET (FP) PO SCH (22:22)
[2022-06-28] MEDS ORDERED: chlordiazePOXIDE HCL 10 MG CAPSULE PO ONE (05:00)
[2022-06-28] MEDS: methaDONE 40 MG, methaDONE 20 MG PO SCH (05:32)
[2022-06-28] MEDS: PRENATAL VITAMINS W/ FOLIC ACID TABLET (FP) PO SCH (10:12)
[2022-06-28] MEDS: NICOTINE 21 MG/24 HOURS TOPICAL PATCH TD SCH (10:12)
[2022-06-28 12:58] VITALS: BP 120/62; PULSE 65; TEMP 97.1
== END 2022-06-28 14:07 | disposition other institution (70) | DRG 773 ==
LOC: YASAS 17:26 → Y6N 19:58
PROVIDERS: ADMIT Allergy & Immunology; ATTEND Allergy & Immunology
PROC: HZ2ZZZZ Detoxification Services for Substance Abuse Treatment (ICD-10-PCS; principal; 2022-06-23)
DX: F10.230 Alcohol dependence with withdrawal, uncomplicated (principal); F11.20 Opioid dependence, uncomplicated; F14.20 Cocaine dependence, uncomplicated; F17.210 Nicotine dependence, cigarettes, uncomplicated; F19.282 Other psychoactive substance dependence with psychoactive substance-induced sleep disorder; D50.9 Iron deficiency anemia, unspecified; I10 Essential (primary) hypertension; F19.24 Other psychoactive substance dependence with psychoactive substance-induced mood disorder; R63.4 Abnormal weight loss; Z68.22 Body mass index [BMI] 22.0-22.9, adult; Z28.310 Unvaccinated for COVID-19; Z28.9 Immunization not carried out for unspecified reason; Z86.11 Personal history of tuberculosis
CPT/HCPCS: 36415; 71046-TC-FY; 80053; 81003; 85025; 85027; 86780; C9803-CS; U0003; U0005

== ENCOUNTER 2022-06-28 14:13 | Inpatient (IN) | payer OTHER ==
[2022-06-28] MEDS ORDERED: guaiFENesin 600 MG TABLET.ER (FP) PO PRN (15:45)
[2022-06-28] MEDS ORDERED: BACLOFEN 10 MG TABLET (FP) PO PRN (15:45)
[2022-06-28] MEDS ORDERED: ACETAMINOPHEN 325 MG TABLET (FP) PO PRN (15:45)
[2022-06-28] MEDS ORDERED: hydrOXYzine PAMOATE 25 MG CAPSULE (FP) PO PRN (15:45)
[2022-06-28] MEDS ORDERED: LOPERAMIDE HCL 2 MG CAPSULE PO PRN (15:45)
[2022-06-28] MEDS ORDERED: MAG HYDROX/AL HYDROX/SIMETH 30 ML UNIT-DOSE CUP PO PRN (15:45)
[2022-06-28] MEDS ORDERED: NALOXONE HCL 0.4 MG/ML VIAL IVPUSH PRN (15:45)
[2022-06-28] MEDS ORDERED: BENZONATATE 200 MG CAPSULE PO PRN (15:45)
[2022-06-28] MEDS ORDERED: BENZOCAINE/MENTHOL (CHLORASEPTIC ) LOZENGE MM PRN (15:45)
[2022-06-28] MEDS ORDERED: MAGNESIUM HYDROX 2400MG/30ML ORAL SUSPENSION 30 ML CUP PO PRN (15:45)
[2022-06-28] MEDS ORDERED: COLLOIDAL OATMEAL 1 BAR EACH TP PRN (15:45)
[2022-06-28] MEDS ORDERED: POLYETHYLENE GLYCOL (HEALTHYLAX) 3350 17 GM PACKET PO PRN (15:45)
[2022-06-28] MEDS ORDERED: NALOXONE HCL (KLOXXADO) 8 MG SPRAY NS PRN (15:45)
[2022-06-28] MEDS ORDERED: AMMONIUM LACTATE 12% LOTION 225 GM BOTTLE TP PRN (15:45)
[2022-06-28] MEDS ORDERED: ALBUTEROL SO4 HFA INHALER IH PRN (15:47)
[2022-06-28] MEDS ORDERED: LORATADINE 10 MG TABLET PO PRN (15:47)
[2022-06-28] MEDS: THIAMINE HCL 100 MG TABLET (FP) PO SCH (21:40)
[2022-06-28] MEDS: MELATONIN 5 MG TABLETS PO SCH (21:41)
[2022-06-29] MEDS: methaDONE 40 MG, methaDONE 20 MG PO SCH (05:59)
[2022-06-29] MEDS ORDERED: methaDONE HCL 10 MG TABLET PO SCH (06:00)
[2022-06-29] MEDS: LISINOPRIL 5 MG TABLET PO SCH (09:48)
[2022-06-29] MEDS: PRENATAL VITAMINS W/ FOLIC ACID TABLET (FP) PO SCH (09:48)
[2022-06-29] MEDS: BUDESONIDE/FORMETEROL FUMARATE 80/4.5 mcg INHALER IH SCH (09:48)
[2022-06-29] MEDS ORDERED: LISINOPRIL 5 MG TABLET PO SCH (10:00)
[2022-06-29] MEDS: LACTULOSE 20 GM/30 ML UDC (FOR ORAL USE ONLY) PO SCH ×2 (14:22→21:07)
[2022-06-29] MEDS: MELATONIN 5 MG TABLETS PO SCH (21:07)
[2022-06-29] MEDS: THIAMINE HCL 100 MG TABLET (FP) PO SCH (21:08)
[2022-06-29] MEDS: IBUPROFEN 600 MG TABLET (FP) PO PRN (21:09)
[2022-06-30] MEDS: methaDONE 40 MG, methaDONE 20 MG PO SCH (06:07)
[2022-06-30] MEDS: LACTULOSE 20 GM/30 ML UDC (FOR ORAL USE ONLY) PO SCH ×3 (06:07→21:26)
[2022-06-30] MEDS: LISINOPRIL 5 MG TABLET PO SCH (10:21)
[2022-06-30] MEDS: BUDESONIDE/FORMETEROL FUMARATE 80/4.5 mcg INHALER IH SCH (10:21)
[2022-06-30] MEDS: PRENATAL VITAMINS W/ FOLIC ACID TABLET (FP) PO SCH (10:21)
[2022-06-30] MEDS: THIAMINE HCL 100 MG TABLET (FP) PO SCH (21:26)
[2022-06-30] MEDS: MELATONIN 5 MG TABLETS PO SCH (21:26)
[2022-07-01] MEDS: LACTULOSE 20 GM/30 ML UDC (FOR ORAL USE ONLY) PO SCH ×3 (06:27→21:11)
[2022-07-01] MEDS: methaDONE 40 MG, methaDONE 20 MG PO SCH (06:28)
[2022-07-01] MEDS: BUDESONIDE/FORMETEROL FUMARATE 80/4.5 mcg INHALER IH SCH (10:39)
[2022-07-01] MEDS: LISINOPRIL 5 MG TABLET PO SCH (10:39)
[2022-07-01] MEDS: PRENATAL VITAMINS W/ FOLIC ACID TABLET (FP) PO SCH (10:39)
[2022-07-01] MEDS: MELATONIN 5 MG TABLETS PO SCH (21:11)
[2022-07-01] MEDS: SUVOREXANT 5 MG TABLET PO PRN (21:11)
[2022-07-01] MEDS: THIAMINE HCL 100 MG TABLET (FP) PO SCH (21:11)
[2022-07-01] MEDS: IBUPROFEN 400 MG TABLET (FP) PO PRN (21:12)
[2022-07-02] MEDS: methaDONE 40 MG, methaDONE 20 MG PO SCH (06:10)
[2022-07-02] MEDS: LACTULOSE 20 GM/30 ML UDC (FOR ORAL USE ONLY) PO SCH ×3 (06:27→21:26)
[2022-07-02] MEDS: NICOTINE 10 MG CARTRIDGE (INHALER) IH PRN (07:07)
[2022-07-02] MEDS: NICOTINE 14 MG/24 HOURS TOPICAL PATCH TD PRN ×2 (07:12→10:54)
[2022-07-02] MEDS: BUDESONIDE/FORMETEROL FUMARATE 80/4.5 mcg INHALER IH SCH (10:54)
[2022-07-02] MEDS: PRENATAL VITAMINS W/ FOLIC ACID TABLET (FP) PO SCH (10:54)
[2022-07-02] MEDS: LISINOPRIL 5 MG TABLET PO SCH ×2 (10:54→11:00)
[2022-07-02] MEDS: THIAMINE HCL 100 MG TABLET (FP) PO SCH (21:26)
[2022-07-02] MEDS: MELATONIN 5 MG TABLETS PO SCH (21:26)
[2022-07-02] MEDS: IBUPROFEN 400 MG TABLET (FP) PO PRN (21:27)
[2022-07-03] MEDS: methaDONE 40 MG, methaDONE 20 MG PO SCH (05:53)
[2022-07-03] MEDS: LACTULOSE 20 GM/30 ML UDC (FOR ORAL USE ONLY) PO SCH ×3 (05:55→21:02)
[2022-07-03] MEDS: LISINOPRIL 5 MG TABLET PO SCH (09:47)
[2022-07-03] MEDS: BUDESONIDE/FORMETEROL FUMARATE 80/4.5 mcg INHALER IH SCH (09:47)
[2022-07-03] MEDS: PRENATAL VITAMINS W/ FOLIC ACID TABLET (FP) PO SCH (09:47)
[2022-07-03] MEDS: MELATONIN 5 MG TABLETS PO SCH (21:02)
[2022-07-03] MEDS: THIAMINE HCL 100 MG TABLET (FP) PO SCH (21:02)
[2022-07-03] MEDS: SUVOREXANT 5 MG TABLET PO PRN (21:03)
[2022-07-04] MEDS: LACTULOSE 20 GM/30 ML UDC (FOR ORAL USE ONLY) PO SCH ×3 (06:35→21:22)
[2022-07-04] MEDS: methaDONE 40 MG, methaDONE 20 MG PO SCH (06:36)
[2022-07-04] MEDS: PRENATAL VITAMINS W/ FOLIC ACID TABLET (FP) PO SCH (10:03)
[2022-07-04] MEDS: BUDESONIDE/FORMETEROL FUMARATE 80/4.5 mcg INHALER IH SCH (10:03)
[2022-07-04] MEDS: LISINOPRIL 5 MG TABLET PO SCH (10:04)
[2022-07-04] MEDS: MELATONIN 5 MG TABLETS PO SCH (21:22)
[2022-07-04] MEDS: THIAMINE HCL 100 MG TABLET (FP) PO SCH (21:22)
[2022-07-05] MEDS: LACTULOSE 20 GM/30 ML UDC (FOR ORAL USE ONLY) PO SCH ×3 (06:28→21:04)
[2022-07-05] MEDS: methaDONE 40 MG, methaDONE 20 MG PO SCH (06:29)
[2022-07-05] MEDS: BUDESONIDE/FORMETEROL FUMARATE 80/4.5 mcg INHALER IH SCH (09:32)
[2022-07-05] MEDS: LISINOPRIL 5 MG TABLET PO SCH (09:32)
[2022-07-05] MEDS: PRENATAL VITAMINS W/ FOLIC ACID TABLET (FP) PO SCH (09:32)
[2022-07-05] MEDS: RIFAXIMIN 550 MG TABLET PO SCH ×2 (14:16→21:05)
[2022-07-05] MEDS: IBUPROFEN 600 MG TABLET (FP) PO PRN (14:18)
[2022-07-05] MEDS: MELATONIN 5 MG TABLETS PO SCH (21:05)
[2022-07-05] MEDS: THIAMINE HCL 100 MG TABLET (FP) PO SCH (21:05)
[2022-07-05] MEDS: SUVOREXANT 5 MG TABLET PO PRN (22:06)
[2022-07-06] MEDS: methaDONE 40 MG, methaDONE 20 MG PO SCH (06:21)
[2022-07-06] MEDS: LACTULOSE 20 GM/30 ML UDC (FOR ORAL USE ONLY) PO SCH ×3 (06:21→21:01)
[2022-07-06] MEDS: PRENATAL VITAMINS W/ FOLIC ACID TABLET (FP) PO SCH (10:00)
[2022-07-06] MEDS: LISINOPRIL 5 MG TABLET PO SCH (10:01)
[2022-07-06] MEDS: BUDESONIDE/FORMETEROL FUMARATE 80/4.5 mcg INHALER IH SCH (10:01)
[2022-07-06] MEDS: RIFAXIMIN 550 MG TABLET PO SCH ×2 (10:01→21:01)
[2022-07-06] MEDS: IBUPROFEN 600 MG TABLET (FP) PO PRN ×2 (10:02→14:24)
[2022-07-06] MEDS: NICOTINE 14 MG/24 HOURS TOPICAL PATCH TD PRN (14:39)
[2022-07-06] MEDS: NICOTINE 10 MG CARTRIDGE (INHALER) IH PRN (14:40)
[2022-07-06] MEDS: THIAMINE HCL 100 MG TABLET (FP) PO SCH (21:01)
[2022-07-06] MEDS: MELATONIN 5 MG TABLETS PO SCH (21:01)
[2022-07-06] MEDS: SUVOREXANT 10 MG TABLET PO PRN (21:01)
[2022-07-07] MEDS: LACTULOSE 20 GM/30 ML UDC (FOR ORAL USE ONLY) PO SCH ×3 (05:37→21:05)
[2022-07-07] MEDS: methaDONE 40 MG, methaDONE 20 MG PO SCH (05:37)
[2022-07-07] MEDS: IBUPROFEN 600 MG TABLET (FP) PO PRN (05:41)
[2022-07-07] MEDS: LISINOPRIL 5 MG TABLET PO SCH (09:45)
[2022-07-07] MEDS: PRENATAL VITAMINS W/ FOLIC ACID TABLET (FP) PO SCH (09:45)
[2022-07-07] MEDS: RIFAXIMIN 550 MG TABLET PO SCH ×2 (09:45→21:05)
[2022-07-07] MEDS: BUDESONIDE/FORMETEROL FUMARATE 80/4.5 mcg INHALER IH SCH (09:46)
[2022-07-07] MEDS: THIAMINE HCL 100 MG TABLET (FP) PO SCH (21:05)
[2022-07-07] MEDS: MELATONIN 5 MG TABLETS PO SCH (21:05)
[2022-07-08] MEDS: LACTULOSE 20 GM/30 ML UDC (FOR ORAL USE ONLY) PO SCH ×3 (05:52→21:02)
[2022-07-08] MEDS: methaDONE 40 MG, methaDONE 20 MG PO SCH (05:52)
[2022-07-08] MEDS: IBUPROFEN 600 MG TABLET (FP) PO PRN ×2 (05:56→21:03)
[2022-07-08] MEDS: BUDESONIDE/FORMETEROL FUMARATE 80/4.5 mcg INHALER IH SCH (10:04)
[2022-07-08] MEDS: NICOTINE 14 MG/24 HOURS TOPICAL PATCH TD PRN (10:04)
[2022-07-08] MEDS: RIFAXIMIN 550 MG TABLET PO SCH ×2 (10:05→21:02)
[2022-07-08] MEDS: PRENATAL VITAMINS W/ FOLIC ACID TABLET (FP) PO SCH (10:05)
[2022-07-08] MEDS: LISINOPRIL 5 MG TABLET PO SCH (10:05)
[2022-07-08] MEDS: NICOTINE 10 MG CARTRIDGE (INHALER) IH PRN (10:05)
[2022-07-08] MEDS: MELATONIN 5 MG TABLETS PO SCH (21:01)
[2022-07-08] MEDS: THIAMINE HCL 100 MG TABLET (FP) PO SCH (21:01)
[2022-07-09] MEDS: methaDONE 40 MG, methaDONE 20 MG PO SCH (06:25)
[2022-07-09] MEDS: LACTULOSE 20 GM/30 ML UDC (FOR ORAL USE ONLY) PO SCH ×3 (07:00→21:39)
[2022-07-09] MEDS: RIFAXIMIN 550 MG TABLET PO SCH ×2 (09:58→21:38)
[2022-07-09] MEDS: LISINOPRIL 5 MG TABLET PO SCH (09:58)
[2022-07-09] MEDS: PRENATAL VITAMINS W/ FOLIC ACID TABLET (FP) PO SCH (09:58)
[2022-07-09] MEDS: BUDESONIDE/FORMETEROL FUMARATE 80/4.5 mcg INHALER IH SCH (09:58)
[2022-07-09] MEDS: MELATONIN 5 MG TABLETS PO SCH (21:38)
[2022-07-09] MEDS: DOCUSATE SODIUM 100 MG CAPSULE (FP) PO PRN (21:38)
[2022-07-09] MEDS: THIAMINE HCL 100 MG TABLET (FP) PO SCH (21:38)
[2022-07-10] MEDS: methaDONE 40 MG, methaDONE 20 MG PO SCH (05:52)
[2022-07-10] MEDS: LACTULOSE 20 GM/30 ML UDC (FOR ORAL USE ONLY) PO SCH ×3 (05:52→21:07)
[2022-07-10] MEDS: BUDESONIDE/FORMETEROL FUMARATE 80/4.5 mcg INHALER IH SCH (09:37)
[2022-07-10] MEDS: RIFAXIMIN 550 MG TABLET PO SCH ×2 (09:37→21:07)
[2022-07-10] MEDS: PRENATAL VITAMINS W/ FOLIC ACID TABLET (FP) PO SCH (09:37)
[2022-07-10] MEDS: LISINOPRIL 5 MG TABLET PO SCH (09:37)
[2022-07-10] MEDS: THIAMINE HCL 100 MG TABLET (FP) PO SCH (21:07)
[2022-07-10] MEDS: MELATONIN 5 MG TABLETS PO SCH (21:07)
[2022-07-10] MEDS: SUVOREXANT 10 MG TABLET PO PRN (21:08)
[2022-07-10] MEDS: IBUPROFEN 400 MG TABLET (FP) PO PRN (21:09)
[2022-07-11] MEDS: LACTULOSE 20 GM/30 ML UDC (FOR ORAL USE ONLY) PO SCH ×3 (05:44→21:38)
[2022-07-11] MEDS: methaDONE 40 MG, methaDONE 20 MG PO SCH (05:45)
[2022-07-11] MEDS: PRENATAL VITAMINS W/ FOLIC ACID TABLET (FP) PO SCH (10:07)
[2022-07-11] MEDS: LISINOPRIL 5 MG TABLET PO SCH (10:07)
[2022-07-11] MEDS: BUDESONIDE/FORMETEROL FUMARATE 80/4.5 mcg INHALER IH SCH (10:07)
[2022-07-11] MEDS: RIFAXIMIN 550 MG TABLET PO SCH ×2 (10:07→21:39)
[2022-07-11] MEDS: THIAMINE HCL 100 MG TABLET (FP) PO SCH (21:38)
[2022-07-11] MEDS: MELATONIN 5 MG TABLETS PO SCH (21:38)
[2022-07-11] MEDS: SUVOREXANT 10 MG TABLET PO PRN (21:40)
[2022-07-12] MEDS: methaDONE 40 MG, methaDONE 20 MG PO SCH (05:57)
[2022-07-12] MEDS: LACTULOSE 20 GM/30 ML UDC (FOR ORAL USE ONLY) PO SCH (05:57)
[2022-07-12] MEDS: RIFAXIMIN 550 MG TABLET PO SCH (10:14)
[2022-07-12] MEDS: BUDESONIDE/FORMETEROL FUMARATE 80/4.5 mcg INHALER IH SCH (10:14)
[2022-07-12] MEDS: PRENATAL VITAMINS W/ FOLIC ACID TABLET (FP) PO SCH (10:14)
[2022-07-12] MEDS: IBUPROFEN 600 MG TABLET (FP) PO PRN (10:15)
[2022-07-12] MEDS: LISINOPRIL 5 MG TABLET PO SCH (10:15)
[2022-07-12] MEDS: NICOTINE 14 MG/24 HOURS TOPICAL PATCH TD PRN (13:46)
[2022-07-12] MEDS: THIAMINE HCL 100 MG TABLET (FP) PO SCH (21:32)
[2022-07-12] MEDS: SUVOREXANT 10 MG TABLET PO PRN (21:32)
[2022-07-12] MEDS: MELATONIN 5 MG TABLETS PO SCH (21:32)
[2022-07-13] MEDS: methaDONE 40 MG, methaDONE 20 MG PO SCH (06:34)
[2022-07-13] MEDS: PRENATAL VITAMINS W/ FOLIC ACID TABLET (FP) PO SCH (09:38)
[2022-07-13] MEDS: LISINOPRIL 5 MG TABLET PO SCH (09:38)
[2022-07-13] MEDS: BUDESONIDE/FORMETEROL FUMARATE 80/4.5 mcg INHALER IH SCH (09:38)
[2022-07-13] MEDS: NICOTINE 14 MG/24 HOURS TOPICAL PATCH TD PRN (09:39)
[2022-07-13] MEDS: MELATONIN 5 MG TABLETS PO SCH (21:44)
[2022-07-13] MEDS: THIAMINE HCL 100 MG TABLET (FP) PO SCH (21:44)
[2022-07-13] MEDS: SUVOREXANT 10 MG TABLET PO PRN (21:45)
[2022-07-14] MEDS: methaDONE 40 MG, methaDONE 20 MG PO SCH (06:07)
[2022-07-14] MEDS: IBUPROFEN 400 MG TABLET (FP) PO PRN (06:09)
[2022-07-14] MEDS: PRENATAL VITAMINS W/ FOLIC ACID TABLET (FP) PO SCH (10:13)
[2022-07-14] MEDS: LISINOPRIL 5 MG TABLET PO SCH (10:13)
[2022-07-14] MEDS: BUDESONIDE/FORMETEROL FUMARATE 80/4.5 mcg INHALER IH SCH (10:13)
[2022-07-14] MEDS: NICOTINE 14 MG/24 HOURS TOPICAL PATCH TD PRN (10:14)
[2022-07-14] MEDS: NICOTINE 10 MG CARTRIDGE (INHALER) IH PRN (10:16)
[2022-07-14] MEDS: MELATONIN 5 MG TABLETS PO SCH (21:12)
[2022-07-14] MEDS: THIAMINE HCL 100 MG TABLET (FP) PO SCH (21:12)
[2022-07-14] MEDS: SUVOREXANT 10 MG TABLET PO PRN (21:13)
[2022-07-15] MEDS: methaDONE 40 MG, methaDONE 20 MG PO SCH (06:22)
[2022-07-15] MEDS: LISINOPRIL 5 MG TABLET PO SCH (09:30)
[2022-07-15] MEDS: PRENATAL VITAMINS W/ FOLIC ACID TABLET (FP) PO SCH (09:30)
[2022-07-15] MEDS: BUDESONIDE/FORMETEROL FUMARATE 80/4.5 mcg INHALER IH SCH (09:30)
[2022-07-15] MEDS: THIAMINE HCL 100 MG TABLET (FP) PO SCH (21:28)
[2022-07-15] MEDS: SUVOREXANT 10 MG TABLET PO PRN (21:28)
[2022-07-15] MEDS: MELATONIN 5 MG TABLETS PO SCH (21:28)
[2022-07-15] MEDS ORDERED: SUVOREXANT 10 MG TABLET PO PRN (22:00)
[2022-07-16] MEDS: methaDONE 40 MG, methaDONE 20 MG PO SCH (06:10)
[2022-07-16] MEDS: BUDESONIDE/FORMETEROL FUMARATE 80/4.5 mcg INHALER IH SCH (10:09)
[2022-07-16] MEDS: LISINOPRIL 5 MG TABLET PO SCH (10:09)
[2022-07-16] MEDS: PRENATAL VITAMINS W/ FOLIC ACID TABLET (FP) PO SCH (10:09)
[2022-07-16] MEDS: NICOTINE 14 MG/24 HOURS TOPICAL PATCH TD PRN (10:23)
[2022-07-16] MEDS: NICOTINE 10 MG CARTRIDGE (INHALER) IH PRN (10:23)
[2022-07-16] MEDS: DOCUSATE SODIUM 100 MG CAPSULE (FP) PO PRN (21:39)
[2022-07-16] MEDS: THIAMINE HCL 100 MG TABLET (FP) PO SCH (21:39)
[2022-07-16] MEDS: MELATONIN 5 MG TABLETS PO SCH (21:39)
[2022-07-16] MEDS: SUVOREXANT 10 MG TABLET PO PRN (21:41)
[2022-07-16] MEDS: IBUPROFEN 600 MG TABLET (FP) PO PRN (21:42)
[2022-07-17] MEDS: methaDONE 40 MG, methaDONE 20 MG PO SCH (06:03)
[2022-07-17] MEDS: NICOTINE 10 MG CARTRIDGE (INHALER) IH PRN (06:10)
[2022-07-17] MEDS: NICOTINE 14 MG/24 HOURS TOPICAL PATCH TD PRN (06:14)
[2022-07-17] MEDS: PRENATAL VITAMINS W/ FOLIC ACID TABLET (FP) PO SCH (09:32)
[2022-07-17] MEDS: BUDESONIDE/FORMETEROL FUMARATE 80/4.5 mcg INHALER IH SCH (09:32)
[2022-07-17] MEDS: LISINOPRIL 5 MG TABLET PO SCH (09:32)
[2022-07-17] MEDS: THIAMINE HCL 100 MG TABLET (FP) PO SCH (21:25)
[2022-07-17] MEDS: MELATONIN 5 MG TABLETS PO SCH (21:25)
[2022-07-17] MEDS: IBUPROFEN 400 MG TABLET (FP) PO PRN (21:26)
[2022-07-17] MEDS: SUVOREXANT 10 MG TABLET PO PRN (21:26)
[2022-07-18] MEDS: methaDONE 40 MG, methaDONE 20 MG PO SCH (06:22)
[2022-07-18] MEDS: BUDESONIDE/FORMETEROL FUMARATE 80/4.5 mcg INHALER IH SCH (10:24)
[2022-07-18] MEDS: LISINOPRIL 5 MG TABLET PO SCH (10:24)
[2022-07-18] MEDS: PRENATAL VITAMINS W/ FOLIC ACID TABLET (FP) PO SCH (10:25)
[2022-07-18] MEDS: SUVOREXANT 10 MG TABLET PO PRN (21:11)
[2022-07-18] MEDS: THIAMINE HCL 100 MG TABLET (FP) PO SCH (21:11)
[2022-07-18] MEDS: MELATONIN 5 MG TABLETS PO SCH (21:11)
[2022-07-18] MEDS: IBUPROFEN 400 MG TABLET (FP) PO PRN (21:12)
[2022-07-19 06:21] VITALS: TEMP 97.3
[2022-07-19] MEDS: methaDONE 40 MG, methaDONE 20 MG PO SCH (06:36)
[2022-07-19] MEDS: LISINOPRIL 5 MG TABLET PO SCH (09:01)
[2022-07-19] MEDS: BUDESONIDE/FORMETEROL FUMARATE 80/4.5 mcg INHALER IH SCH (09:01)
[2022-07-19] MEDS: PRENATAL VITAMINS W/ FOLIC ACID TABLET (FP) PO SCH (09:01)
[2022-07-19 09:16] VITALS: PULSE 72
[2022-07-19 10:48] VITALS: BP 140/63; RESP 18
== END 2022-07-19 09:10 | disposition home or self-care (01) | DRG 772 ==
LOC: YASAS 14:13 → Y3W 14:15
PROVIDERS: ADMIT Allergy & Immunology; ATTEND Psychiatry & Neurology Pain Medicine
PROC: HZ42ZZZ Group Counseling for Substance Abuse Treatment, Cognitive-Behavioral (ICD-10-PCS; principal; 2022-06-28)
DX: F10.20 Alcohol dependence, uncomplicated (principal); F11.20 Opioid dependence, uncomplicated; F14.20 Cocaine dependence, uncomplicated; F17.210 Nicotine dependence, cigarettes, uncomplicated; F19.282 Other psychoactive substance dependence with psychoactive substance-induced sleep disorder; F19.24 Other psychoactive substance dependence with psychoactive substance-induced mood disorder; G47.00 Insomnia, unspecified; I10 Essential (primary) hypertension; J45.20 Mild intermittent asthma, uncomplicated; Z86.59 Personal history of other mental and behavioral disorders
CPT/HCPCS: 36415; 82140; 86803

== ENCOUNTER 2023-01-31 12:31 | Inpatient (IN) | payer OTHER ==
[2023-01-31 13:35] VITALS: BMI 22.3
[2023-01-31] MEDS ORDERED: BENZONATATE 200 MG CAPSULE PO PRN (16:16)
[2023-01-31] MEDS ORDERED: LOPERAMIDE HCL 2 MG CAPSULE PO PRN (16:16)
[2023-01-31] MEDS ORDERED: ONDANSETRON *ODT* 4 MG TABLET SL PRN (16:16)
[2023-01-31] MEDS ORDERED: NALOXONE HCL (KLOXXADO) 8 MG SPRAY NS PRN (16:16)
[2023-01-31] MEDS ORDERED: BISMUTH SUBSALICYLATE 524 MG/30 ML PO PRN (16:16)
[2023-01-31] MEDS ORDERED: MAGNESIUM HYDROX 2400MG/30ML ORAL SUSPENSION 30 ML CUP PO PRN (16:16)
[2023-01-31] MEDS ORDERED: ACETAMINOPHEN 325 MG TABLET (FP) PO PRN (16:16)
[2023-01-31] MEDS ORDERED: BENZOCAINE/MENTHOL (CHLORASEPTIC ) LOZENGE MM PRN (16:16)
[2023-01-31] MEDS ORDERED: MAG HYDROX/AL HYDROX/SIMETH 30 ML UNIT-DOSE CUP PO PRN (16:16)
[2023-01-31] MEDS ORDERED: POLYETHYLENE GLYCOL (HEALTHYLAX) 3350 17 GM PACKET PO PRN (16:16)
[2023-01-31] MEDS ORDERED: guaiFENesin 600 MG TABLET.ER (FP) PO PRN (16:16)
[2023-01-31] MEDS ORDERED: hydrOXYzine PAMOATE 25 MG CAPSULE (FP) PO PRN (16:16)
[2023-01-31] MEDS ORDERED: NALOXONE HCL 0.4 MG/ML VIAL IM PRN (16:16)
[2023-01-31] MEDS ORDERED: IBUPROFEN 400 MG TABLET (FP) PO PRN (16:16)
[2023-01-31] MEDS ORDERED: DICYCLOMINE HCL 10 MG CAPSULE PO PRN (16:16)
[2023-01-31] MEDS ORDERED: DOCUSATE SODIUM 100 MG CAPSULE (FP) PO PRN (16:19)
[2023-01-31] MEDS ORDERED: ALBUTEROL SO4 HFA INHALER IH PRN (16:19)
[2023-01-31] MEDS: NICOTINE 14 MG/24 HOURS TOPICAL PATCH TD SCH (18:20)
[2023-01-31] MEDS: PRENATAL VITAMINS W/ FOLIC ACID TABLET (FP) PO SCH (18:21)
[2023-01-31] MEDS: TOLNAFTATE 1% POWDER 45 GM POW TP SCH (21:44)
[2023-01-31] MEDS: MELATONIN 5 MG TABLETS PO SCH (21:44)
[2023-01-31] MEDS: THIAMINE HCL 100 MG TABLET (FP) PO SCH (21:45)
[2023-01-31] MEDS: METHOCARBAMOL 500 MG TABLET PO PRN (21:46)
[2023-02-01] MEDS ORDERED: methaDONE 40 MG, methaDONE 20 MG PO ONE (09:00)
[2023-02-01] MEDS ORDERED: methaDONE HCL 10 MG TABLET PO SCH ×2 (09:00→09:45)
[2023-02-01] MEDS: TOLNAFTATE 1% POWDER 45 GM POW TP SCH ×2 (09:30→22:25)
[2023-02-01] MEDS: NICOTINE 14 MG/24 HOURS TOPICAL PATCH TD SCH (09:30)
[2023-02-01] MEDS: PRENATAL VITAMINS W/ FOLIC ACID TABLET (FP) PO SCH (09:30)
[2023-02-01] MEDS: LISINOPRIL 5 MG TABLET PO SCH (09:30)
[2023-02-01] MEDS: LORATADINE 10 MG TABLET PO SCH (09:30)
[2023-02-01] MEDS: BUDESONIDE/FORMETEROL FUMARATE 80/4.5 mcg INHALER IH SCH (09:32)
[2023-02-01] MEDS ORDERED: chlordiazePOXIDE HCL 25 MG CAPSULE PO PRN (09:40)
[2023-02-01] MEDS: chlordiazePOXIDE HCL 25 MG CAPSULE PO SCH ×3 (10:38→22:25)
[2023-02-01 11:12] LABS: HEMOGLOBIN 9.4 GM/dL (11.7-16.9); MCH 23.2 pg (25.7-33.7); MCHC 31.3 g/dl (32.0-35.9); MEAN CELL VOLUME 74.1 fl (80-96); MEAN PLT VOLUME 8.8 fl (7.5-11.1); PLATELET COUNT 223 10^3/uL (134-434); RBC 4.05 M/mm3 (4.00-5.60); RDW 16.4 % (11.9-15.9); WHITE BLOOD COUNT 4.5 K/mm3 (4.0-10.0)
[2023-02-01] MEDS: IBUPROFEN 600 MG TABLET (FP) PO PRN (11:24)
[2023-02-01] MEDS: METHOCARBAMOL 500 MG TABLET PO PRN (11:25)
[2023-02-01 11:46] LABS: CHLORIDE 110 mmol/L (98-107); POTASSIUM 4.3 mmol/L (3.5-5.1); SODIUM 142 mmol/L (136-145)
[2023-02-01 12:07] LABS: CALCIUM 8.6 mg/dL (8.5-10.1)
[2023-02-01 12:08] LABS: ALBUMIN 2.7 g/dl (3.4-5.0); ANION GAP 4 mmol/L (4-13); BLOOD UREA NITROGEN 14.7 mg/dL (7-18); CO2 28 mmol/L (21-32); GLUCOSE,RANDOM 70 mg/dL (74-106)
[2023-02-01 12:11] LABS: CREATININE 0.8 mg/dL (0.55-1.3); SGOT/AST 15 U/L (15-37); SGPT/ALT 22 U/L (13-61)
[2023-02-01 12:13] LABS: ALK PHOS 86 U/L (45-117); BILIRUBIN,TOTAL 0.4 mg/dL (0.2-1); TOT PROT 5.4 g/dl (6.4-8.2)
[2023-02-01] MEDS: THIAMINE HCL 100 MG TABLET (FP) PO SCH (22:24)
[2023-02-01] MEDS: MELATONIN 5 MG TABLETS PO SCH (22:24)
[2023-02-01] MEDS: LACTULOSE 20 GM/30 ML UDC (FOR ORAL USE ONLY) PO SCH (22:24)
[2023-02-02] MEDS: IBUPROFEN 600 MG TABLET (FP) PO PRN ×2 (05:35→17:16)
[2023-02-02] MEDS: METHOCARBAMOL 500 MG TABLET PO PRN (05:35)
[2023-02-02] MEDS: chlordiazePOXIDE HCL 25 MG CAPSULE PO SCH ×4 (05:36→22:13)
[2023-02-02] MEDS: methaDONE 40 MG, methaDONE 20 MG PO SCH (05:37)
[2023-02-02] MEDS: LACTULOSE 20 GM/30 ML UDC (FOR ORAL USE ONLY) PO SCH ×4 (10:41→22:13)
[2023-02-02] MEDS: NICOTINE 14 MG/24 HOURS TOPICAL PATCH TD SCH (10:41)
[2023-02-02] MEDS: LORATADINE 10 MG TABLET PO SCH (10:41)
[2023-02-02] MEDS: BUDESONIDE/FORMETEROL FUMARATE 80/4.5 mcg INHALER IH SCH (10:41)
[2023-02-02] MEDS: PRENATAL VITAMINS W/ FOLIC ACID TABLET (FP) PO SCH (10:41)
[2023-02-02] MEDS: LISINOPRIL 5 MG TABLET PO SCH (10:41)
[2023-02-02] MEDS: TOLNAFTATE 1% POWDER 45 GM POW TP SCH ×2 (10:45→22:14)
[2023-02-02] MEDS: THIAMINE HCL 100 MG TABLET (FP) PO SCH (22:13)
[2023-02-02] MEDS: MELATONIN 5 MG TABLETS PO SCH (22:13)
[2023-02-03] MEDS: IBUPROFEN 600 MG TABLET (FP) PO PRN (05:45)
[2023-02-03] MEDS: chlordiazePOXIDE HCL 25 MG CAPSULE PO SCH ×4 (05:50→22:51)
[2023-02-03] MEDS: methaDONE 40 MG, methaDONE 20 MG PO SCH (06:19)
[2023-02-03] MEDS: METHOCARBAMOL 500 MG TABLET PO PRN (06:20)
[2023-02-03] MEDS: LACTULOSE 20 GM/30 ML UDC (FOR ORAL USE ONLY) PO SCH ×4 (10:16→22:51)
[2023-02-03] MEDS: TOLNAFTATE 1% POWDER 45 GM POW TP SCH ×2 (10:17→22:51)
[2023-02-03] MEDS: NICOTINE 14 MG/24 HOURS TOPICAL PATCH TD SCH (10:17)
[2023-02-03] MEDS: PRENATAL VITAMINS W/ FOLIC ACID TABLET (FP) PO SCH (10:17)
[2023-02-03] MEDS: LORATADINE 10 MG TABLET PO SCH (10:17)
[2023-02-03] MEDS: BUDESONIDE/FORMETEROL FUMARATE 80/4.5 mcg INHALER IH SCH (10:17)
[2023-02-03] MEDS: LISINOPRIL 5 MG TABLET PO SCH (10:17)
[2023-02-03] MEDS: THIAMINE HCL 100 MG TABLET (FP) PO SCH (22:51)
[2023-02-03] MEDS: MELATONIN 5 MG TABLETS PO SCH (22:51)
[2023-02-04] MEDS ORDERED: chlordiazePOXIDE HCL 10 MG CAPSULE PO PRN
[2023-02-04] MEDS: chlordiazePOXIDE HCL 10 MG CAPSULE PO SCH ×4 (05:29→22:57)
[2023-02-04] MEDS: methaDONE 40 MG, methaDONE 20 MG PO SCH (05:29)
[2023-02-04] MEDS: LORATADINE 10 MG TABLET PO SCH (10:29)
[2023-02-04] MEDS: LACTULOSE 20 GM/30 ML UDC (FOR ORAL USE ONLY) PO SCH ×4 (10:29→22:53)
[2023-02-04] MEDS: PRENATAL VITAMINS W/ FOLIC ACID TABLET (FP) PO SCH (10:30)
[2023-02-04] MEDS: NICOTINE 14 MG/24 HOURS TOPICAL PATCH TD SCH (10:30)
[2023-02-04] MEDS: TOLNAFTATE 1% POWDER 45 GM POW TP SCH ×2 (10:30→22:55)
[2023-02-04] MEDS: BUDESONIDE/FORMETEROL FUMARATE 80/4.5 mcg INHALER IH SCH (10:30)
[2023-02-04] MEDS: LISINOPRIL 5 MG TABLET PO SCH (10:30)
[2023-02-04 12:12] LABS: CALCIUM 8.9 mg/dL (8.5-10.1); CREATININE 0.8 mg/dL (0.55-1.3)
[2023-02-04 12:13] LABS: BILIRUBIN,TOTAL 0.2 mg/dL (0.2-1); BLOOD UREA NITROGEN 13.4 mg/dL (7-18); TOT PROT 6.2 g/dl (6.4-8.2)
[2023-02-04] MEDS: THIAMINE HCL 100 MG TABLET (FP) PO SCH (22:56)
[2023-02-04] MEDS: MELATONIN 5 MG TABLETS PO SCH (22:58)
[2023-02-05] MEDS: methaDONE 40 MG, methaDONE 20 MG PO SCH (05:35)
[2023-02-05] MEDS: chlordiazePOXIDE HCL 10 MG CAPSULE PO SCH ×2 (05:35→17:33)
[2023-02-05] MEDS: LACTULOSE 20 GM/30 ML UDC (FOR ORAL USE ONLY) PO SCH ×4 (10:10→22:06)
[2023-02-05] MEDS: PRENATAL VITAMINS W/ FOLIC ACID TABLET (FP) PO SCH (10:10)
[2023-02-05] MEDS: BUDESONIDE/FORMETEROL FUMARATE 80/4.5 mcg INHALER IH SCH (10:14)
[2023-02-05] MEDS: LISINOPRIL 5 MG TABLET PO SCH (10:15)
[2023-02-05] MEDS: LORATADINE 10 MG TABLET PO SCH (10:15)
[2023-02-05] MEDS: TOLNAFTATE 1% POWDER 45 GM POW TP SCH ×2 (10:15→22:06)
[2023-02-05] MEDS: NICOTINE 14 MG/24 HOURS TOPICAL PATCH TD SCH (10:15)
[2023-02-05] MEDS: IBUPROFEN 600 MG TABLET (FP) PO PRN (13:15)
[2023-02-05] MEDS: MELATONIN 5 MG TABLETS PO SCH (22:06)
[2023-02-05] MEDS: THIAMINE HCL 100 MG TABLET (FP) PO SCH (22:06)
[2023-02-05] MEDS: METHOCARBAMOL 500 MG TABLET PO PRN (22:06)
[2023-02-06] MEDS ORDERED: chlordiazePOXIDE HCL 10 MG CAPSULE PO ONE (05:00)
[2023-02-06] MEDS: methaDONE 40 MG, methaDONE 20 MG PO SCH (05:47)
[2023-02-06] MEDS: LISINOPRIL 5 MG TABLET PO SCH (09:43)
[2023-02-06] MEDS: LORATADINE 10 MG TABLET PO SCH (09:43)
[2023-02-06] MEDS: TOLNAFTATE 1% POWDER 45 GM POW TP SCH ×2 (09:44→22:39)
[2023-02-06] MEDS: BUDESONIDE/FORMETEROL FUMARATE 80/4.5 mcg INHALER IH SCH (09:44)
[2023-02-06] MEDS: NICOTINE 14 MG/24 HOURS TOPICAL PATCH TD SCH (09:44)
[2023-02-06] MEDS: LACTULOSE 20 GM/30 ML UDC (FOR ORAL USE ONLY) PO SCH ×4 (09:44→22:39)
[2023-02-06] MEDS: PRENATAL VITAMINS W/ FOLIC ACID TABLET (FP) PO SCH (09:44)
[2023-02-06] MEDS: MELATONIN 5 MG TABLETS PO SCH (22:39)
[2023-02-06] MEDS: THIAMINE HCL 100 MG TABLET (FP) PO SCH (22:39)
[2023-02-07] MEDS: methaDONE 40 MG, methaDONE 20 MG PO SCH (06:03)
[2023-02-07] MEDS: NICOTINE 14 MG/24 HOURS TOPICAL PATCH TD SCH (10:14)
[2023-02-07] MEDS: BUDESONIDE/FORMETEROL FUMARATE 80/4.5 mcg INHALER IH SCH (10:14)
[2023-02-07] MEDS: TOLNAFTATE 1% POWDER 45 GM POW TP SCH (10:14)
[2023-02-07] MEDS: LISINOPRIL 5 MG TABLET PO SCH (10:14)
[2023-02-07] MEDS: LORATADINE 10 MG TABLET PO SCH (10:14)
[2023-02-07] MEDS: PRENATAL VITAMINS W/ FOLIC ACID TABLET (FP) PO SCH (10:14)
[2023-02-07] MEDS: LACTULOSE 20 GM/30 ML UDC (FOR ORAL USE ONLY) PO SCH ×2 (10:14→13:19)
[2023-02-07] MEDS: IBUPROFEN 600 MG TABLET (FP) PO PRN (10:17)
[2023-02-07 13:51] VITALS: BP 123/74; PULSE 71; RESP 20; TEMP 98.8
== END 2023-02-07 16:03 | disposition other institution (70) | DRG 774 ==
LOC: YASAS 12:31 → Y3N 17:14
PROVIDERS: ADMIT Allergy & Immunology; ATTEND Surgery
PROC: HZ2ZZZZ Detoxification Services for Substance Abuse Treatment (ICD-10-PCS; principal; 2023-01-31)
DX: F10.230 Alcohol dependence with withdrawal, uncomplicated (principal); F14.20 Cocaine dependence, uncomplicated; F17.210 Nicotine dependence, cigarettes, uncomplicated; F19.24 Other psychoactive substance dependence with psychoactive substance-induced mood disorder; E72.20 Disorder of urea cycle metabolism, unspecified; D64.9 Anemia, unspecified; I10 Essential (primary) hypertension; M54.40 Lumbago with sciatica, unspecified side; G89.29 Other chronic pain; R60.0 Localized edema; Z62.810 Personal history of physical and sexual abuse in childhood; Z86.11 Personal history of tuberculosis; Z28.310 Unvaccinated for COVID-19; Z28.9 Immunization not carried out for unspecified reason
CPT/HCPCS: 36415; 80053; 80307; 82140; 85027; 86780; 87635; 87811; 93005; 93010

== ENCOUNTER 2023-02-07 16:11 | Inpatient (IN) | payer OTHER ==
[2023-02-07] MEDS ORDERED: NALOXONE HCL (KLOXXADO) 8 MG SPRAY NS PRN (18:12)
[2023-02-07] MEDS ORDERED: NALOXONE HCL 0.4 MG/ML VIAL IVPUSH PRN (18:12)
[2023-02-07] MEDS ORDERED: COLLOIDAL OATMEAL 1 BAR EACH TP PRN (18:12)
[2023-02-07] MEDS ORDERED: LORATADINE 10 MG TABLET PO PRN (18:12)
[2023-02-07] MEDS ORDERED: MAG HYDROX/AL HYDROX/SIMETH 30 ML UNIT-DOSE CUP PO PRN (18:12)
[2023-02-07] MEDS ORDERED: guaiFENesin 600 MG TABLET.ER (FP) PO PRN (18:12)
[2023-02-07] MEDS ORDERED: METHOCARBAMOL 500 MG TABLET PO PRN (18:12)
[2023-02-07] MEDS ORDERED: hydrOXYzine PAMOATE 25 MG CAPSULE (FP) PO PRN (18:12)
[2023-02-07] MEDS ORDERED: POLYETHYLENE GLYCOL (HEALTHYLAX) 3350 17 GM PACKET PO PRN (18:12)
[2023-02-07] MEDS ORDERED: BENZONATATE 200 MG CAPSULE PO PRN (18:12)
[2023-02-07] MEDS ORDERED: DOCUSATE SODIUM 100 MG CAPSULE (FP) PO PRN (18:12)
[2023-02-07] MEDS ORDERED: MAGNESIUM HYDROX 2400MG/30ML ORAL SUSPENSION 30 ML CUP PO PRN (18:12)
[2023-02-07] MEDS ORDERED: IBUPROFEN 400 MG TABLET (FP) PO PRN (18:12)
[2023-02-07] MEDS ORDERED: ACETAMINOPHEN 325 MG TABLET (FP) PO PRN (18:12)
[2023-02-07] MEDS ORDERED: BENZOCAINE/MENTHOL (CHLORASEPTIC ) LOZENGE MM PRN (18:12)
[2023-02-07] MEDS ORDERED: LOPERAMIDE HCL 2 MG CAPSULE PO PRN (18:12)
[2023-02-07] MEDS: THIAMINE HCL 100 MG TABLET (FP) PO SCH (21:19)
[2023-02-07] MEDS: MELATONIN 5 MG TABLETS PO SCH (21:19)
[2023-02-07] MEDS: IBUPROFEN 600 MG TABLET (FP) PO PRN (21:31)
[2023-02-08] MEDS ORDERED: methaDONE HCL 10 MG TABLET PO SCH (06:00)
[2023-02-08] MEDS: methaDONE 40 MG, methaDONE 20 MG PO SCH (06:45)
[2023-02-08] MEDS: PRENATAL VITAMINS W/ FOLIC ACID TABLET (FP) PO SCH (09:59)
[2023-02-08] MEDS ORDERED: LISINOPRIL 5 MG TABLET PO SCH (10:00)
[2023-02-08] MEDS: BUDESONIDE/FORMETEROL FUMARATE 80/4.5 mcg INHALER IH SCH (10:00)
[2023-02-08] MEDS: FERROUS SO4 325 MG TABLET (FP) PO SCH (10:01)
[2023-02-08] MEDS: LISINOPRIL 10 MG TABLET PO SCH (10:01)
[2023-02-08] MEDS: LACTULOSE 20 GM/30 ML UDC (FOR ORAL USE ONLY) PO SCH ×2 (13:04→21:35)
[2023-02-08] MEDS: THIAMINE HCL 100 MG TABLET (FP) PO SCH (21:35)
[2023-02-08] MEDS: MELATONIN 5 MG TABLETS PO SCH (21:35)
[2023-02-09] MEDS: LACTULOSE 20 GM/30 ML UDC (FOR ORAL USE ONLY) PO SCH ×3 (06:14→21:01)
[2023-02-09] MEDS: methaDONE 40 MG, methaDONE 20 MG PO SCH (06:14)
[2023-02-09] MEDS: NICOTINE POLACRILEX 2 MG GUM BUC PRN ×4 (07:30→15:49)
[2023-02-09] MEDS: NICOTINE 14 MG/24 HOURS TOPICAL PATCH TD SCH (10:00)
[2023-02-09] MEDS: PRENATAL VITAMINS W/ FOLIC ACID TABLET (FP) PO SCH (10:00)
[2023-02-09] MEDS: LISINOPRIL 10 MG TABLET PO SCH (10:00)
[2023-02-09] MEDS: FERROUS SO4 325 MG TABLET (FP) PO SCH (10:00)
[2023-02-09] MEDS: BUDESONIDE/FORMETEROL FUMARATE 80/4.5 mcg INHALER IH SCH (10:00)
[2023-02-09] MEDS: MELATONIN 5 MG TABLETS PO SCH (21:01)
[2023-02-09] MEDS: THIAMINE HCL 100 MG TABLET (FP) PO SCH (21:01)
[2023-02-10] MEDS: LACTULOSE 20 GM/30 ML UDC (FOR ORAL USE ONLY) PO SCH ×3 (06:29→21:16)
[2023-02-10] MEDS: methaDONE 40 MG, methaDONE 20 MG PO SCH (06:30)
[2023-02-10] MEDS: NICOTINE 14 MG/24 HOURS TOPICAL PATCH TD SCH (09:55)
[2023-02-10] MEDS: LISINOPRIL 10 MG TABLET PO SCH (09:55)
[2023-02-10] MEDS: FERROUS SO4 325 MG TABLET (FP) PO SCH (09:55)
[2023-02-10] MEDS: PRENATAL VITAMINS W/ FOLIC ACID TABLET (FP) PO SCH (09:55)
[2023-02-10] MEDS: BUDESONIDE/FORMETEROL FUMARATE 80/4.5 mcg INHALER IH SCH (09:57)
[2023-02-10] MEDS: NICOTINE POLACRILEX 2 MG GUM BUC PRN (09:57)
[2023-02-10] MEDS: MELATONIN 5 MG TABLETS PO SCH (21:16)
[2023-02-10] MEDS: THIAMINE HCL 100 MG TABLET (FP) PO SCH (21:16)
[2023-02-11] MEDS: LACTULOSE 20 GM/30 ML UDC (FOR ORAL USE ONLY) PO SCH ×3 (06:10→21:00)
[2023-02-11] MEDS: methaDONE 40 MG, methaDONE 20 MG PO SCH (06:10)
[2023-02-11] MEDS: NICOTINE POLACRILEX 2 MG GUM BUC PRN ×2 (06:12→21:01)
[2023-02-11] MEDS: LISINOPRIL 10 MG TABLET PO SCH (09:47)
[2023-02-11] MEDS: PRENATAL VITAMINS W/ FOLIC ACID TABLET (FP) PO SCH (09:47)
[2023-02-11] MEDS: BUDESONIDE/FORMETEROL FUMARATE 80/4.5 mcg INHALER IH SCH (09:47)
[2023-02-11] MEDS: NICOTINE 14 MG/24 HOURS TOPICAL PATCH TD SCH (09:47)
[2023-02-11] MEDS: FERROUS SO4 325 MG TABLET (FP) PO SCH (09:47)
[2023-02-11] MEDS: MELATONIN 5 MG TABLETS PO SCH (21:00)
[2023-02-11] MEDS: THIAMINE HCL 100 MG TABLET (FP) PO SCH (21:00)
[2023-02-12] MEDS: methaDONE 40 MG, methaDONE 20 MG PO SCH (05:52)
[2023-02-12] MEDS: LACTULOSE 20 GM/30 ML UDC (FOR ORAL USE ONLY) PO SCH ×3 (05:52→21:05)
[2023-02-12] MEDS: PRENATAL VITAMINS W/ FOLIC ACID TABLET (FP) PO SCH (09:59)
[2023-02-12] MEDS: FERROUS SO4 325 MG TABLET (FP) PO SCH (09:59)
[2023-02-12] MEDS: LISINOPRIL 10 MG TABLET PO SCH (09:59)
[2023-02-12] MEDS: BUDESONIDE/FORMETEROL FUMARATE 80/4.5 mcg INHALER IH SCH (09:59)
[2023-02-12] MEDS: NICOTINE POLACRILEX 2 MG GUM BUC PRN (09:59)
[2023-02-12] MEDS: NICOTINE 14 MG/24 HOURS TOPICAL PATCH TD SCH (09:59)
[2023-02-12] MEDS: THIAMINE HCL 100 MG TABLET (FP) PO SCH (21:05)
[2023-02-12] MEDS: MELATONIN 5 MG TABLETS PO SCH (21:05)
[2023-02-13] MEDS: LACTULOSE 20 GM/30 ML UDC (FOR ORAL USE ONLY) PO SCH ×3 (06:14→21:19)
[2023-02-13] MEDS: methaDONE 40 MG, methaDONE 20 MG PO SCH (06:14)
[2023-02-13] MEDS: BUDESONIDE/FORMETEROL FUMARATE 80/4.5 mcg INHALER IH SCH (10:01)
[2023-02-13] MEDS: PANTOPRAZOLE 20 MG TABLET PO PRN (10:02)
[2023-02-13] MEDS: PRENATAL VITAMINS W/ FOLIC ACID TABLET (FP) PO SCH (10:02)
[2023-02-13] MEDS: FERROUS SO4 325 MG TABLET (FP) PO SCH (10:02)
[2023-02-13] MEDS: NICOTINE 14 MG/24 HOURS TOPICAL PATCH TD SCH (10:02)
[2023-02-13] MEDS: LISINOPRIL 10 MG TABLET PO SCH (10:02)
[2023-02-13] MEDS: NICOTINE POLACRILEX 2 MG GUM BUC PRN (10:02)
[2023-02-13] MEDS: LIDOCAINE 4% PATCH TP SCH (12:12)
[2023-02-13] MEDS: BACLOFEN 10 MG TABLET (FP) PO SCH ×2 (13:59→21:19)
[2023-02-13] MEDS: IBUPROFEN 600 MG TABLET (FP) PO PRN (18:47)
[2023-02-13] MEDS: LIDOCAINE PATCH REMOVAL MC SCH (21:19)
[2023-02-13] MEDS: THIAMINE HCL 100 MG TABLET (FP) PO SCH (21:19)
[2023-02-13] MEDS: MELATONIN 5 MG TABLETS PO SCH (21:19)
[2023-02-14] MEDS: methaDONE 40 MG, methaDONE 20 MG PO SCH (06:14)
[2023-02-14] MEDS: LACTULOSE 20 GM/30 ML UDC (FOR ORAL USE ONLY) PO SCH ×3 (06:14→21:01)
[2023-02-14] MEDS: BACLOFEN 10 MG TABLET (FP) PO SCH ×3 (06:15→21:00)
[2023-02-14] MEDS: PRENATAL VITAMINS W/ FOLIC ACID TABLET (FP) PO SCH (09:57)
[2023-02-14] MEDS: BUDESONIDE/FORMETEROL FUMARATE 80/4.5 mcg INHALER IH SCH (09:57)
[2023-02-14] MEDS: LISINOPRIL 10 MG TABLET PO SCH (09:58)
[2023-02-14] MEDS: FERROUS SO4 325 MG TABLET (FP) PO SCH (09:58)
[2023-02-14] MEDS: NICOTINE 14 MG/24 HOURS TOPICAL PATCH TD SCH (09:58)
[2023-02-14] MEDS: NICOTINE POLACRILEX 2 MG GUM BUC PRN (09:59)
[2023-02-14] MEDS: LIDOCAINE 4% PATCH TP SCH (09:59)
[2023-02-14 10:28] LABS: BASO % 0.6 % (0-2.0); EOS % 9.8 % (0-4.5); HEMATOCRIT 34.6 % (35.4-49); LYMPH % 45.1 % (8-40); MCH 23.2 pg (25.7-33.7); MCHC 31.8 g/dl (32.0-35.9); MEAN PLT VOLUME 9.4 fl (7.5-11.1); MONO % 12.6 % (3.8-10.2); NEUT % 31.9 % (42.8-82.8); PLATELET COUNT 304 10^3/uL (134-434); RBC 4.74 M/mm3 (4.00-5.60); RDW 16.3 % (11.9-15.9); WHITE BLOOD COUNT 5.2 K/mm3 (4.0-10.0)
[2023-02-14 12:23] LABS: POTASSIUM 3.9 mmol/L (3.5-5.1)
[2023-02-14 12:36] LABS: BLOOD UREA NITROGEN 19.5 mg/dL (7-18); CALCIUM 9.6 mg/dL (8.5-10.1)
[2023-02-14 12:39] LABS: BILIRUBIN,TOTAL 0.7 mg/dL (0.2-1)
[2023-02-14 12:40] LABS: TOT PROT 7.3 g/dl (6.4-8.2)
[2023-02-14 12:43] LABS: ALBUMIN 3.7 g/dl (3.4-5.0)
[2023-02-14] MEDS: THIAMINE HCL 100 MG TABLET (FP) PO SCH (21:00)
[2023-02-14] MEDS: MELATONIN 5 MG TABLETS PO SCH (21:00)
[2023-02-14] MEDS: LIDOCAINE PATCH REMOVAL MC SCH (21:01)
[2023-02-15] MEDS: LACTULOSE 20 GM/30 ML UDC (FOR ORAL USE ONLY) PO SCH ×3 (06:06→21:19)
[2023-02-15] MEDS: methaDONE 40 MG, methaDONE 20 MG PO SCH (06:07)
[2023-02-15] MEDS: BACLOFEN 10 MG TABLET (FP) PO SCH ×3 (06:07→21:19)
[2023-02-15] MEDS: PRENATAL VITAMINS W/ FOLIC ACID TABLET (FP) PO SCH (09:23)
[2023-02-15] MEDS: LISINOPRIL 10 MG TABLET PO SCH (09:23)
[2023-02-15] MEDS: FERROUS SO4 325 MG TABLET (FP) PO SCH (09:23)
[2023-02-15] MEDS: NICOTINE 14 MG/24 HOURS TOPICAL PATCH TD SCH (09:23)
[2023-02-15] MEDS: LIDOCAINE 4% PATCH TP SCH (09:23)
[2023-02-15] MEDS: BUDESONIDE/FORMETEROL FUMARATE 80/4.5 mcg INHALER IH SCH (09:23)
[2023-02-15] MEDS: NICOTINE POLACRILEX 2 MG GUM BUC PRN (09:25)
[2023-02-15] MEDS: MELATONIN 5 MG TABLETS PO SCH (21:19)
[2023-02-15] MEDS: LIDOCAINE PATCH REMOVAL MC SCH (21:19)
[2023-02-15] MEDS: THIAMINE HCL 100 MG TABLET (FP) PO SCH (21:19)
[2023-02-16] MEDS: LACTULOSE 20 GM/30 ML UDC (FOR ORAL USE ONLY) PO SCH ×3 (06:06→21:42)
[2023-02-16] MEDS: BACLOFEN 10 MG TABLET (FP) PO SCH ×3 (06:06→21:42)
[2023-02-16] MEDS: methaDONE 40 MG, methaDONE 20 MG PO SCH (06:07)
[2023-02-16] MEDS: NICOTINE POLACRILEX 2 MG GUM BUC PRN ×2 (07:11→09:56)
[2023-02-16] MEDS: LISINOPRIL 10 MG TABLET PO SCH (09:54)
[2023-02-16] MEDS: PRENATAL VITAMINS W/ FOLIC ACID TABLET (FP) PO SCH (09:54)
[2023-02-16] MEDS: FERROUS SO4 325 MG TABLET (FP) PO SCH (09:54)
[2023-02-16] MEDS: LIDOCAINE 4% PATCH TP SCH (09:54)
[2023-02-16] MEDS: NICOTINE 14 MG/24 HOURS TOPICAL PATCH TD SCH (09:55)
[2023-02-16] MEDS: BUDESONIDE/FORMETEROL FUMARATE 80/4.5 mcg INHALER IH SCH (09:56)
[2023-02-16] MEDS: MELATONIN 5 MG TABLETS PO SCH (21:42)
[2023-02-16] MEDS: THIAMINE HCL 100 MG TABLET (FP) PO SCH (21:42)
[2023-02-16] MEDS: LIDOCAINE PATCH REMOVAL MC SCH (21:43)
[2023-02-17] MEDS: methaDONE 40 MG, methaDONE 20 MG PO SCH (06:12)
[2023-02-17] MEDS: LACTULOSE 20 GM/30 ML UDC (FOR ORAL USE ONLY) PO SCH ×3 (06:12→21:13)
[2023-02-17] MEDS: BACLOFEN 10 MG TABLET (FP) PO SCH ×3 (06:12→21:13)
[2023-02-17] MEDS: PRENATAL VITAMINS W/ FOLIC ACID TABLET (FP) PO SCH (09:29)
[2023-02-17] MEDS: BUDESONIDE/FORMETEROL FUMARATE 80/4.5 mcg INHALER IH SCH (09:30)
[2023-02-17] MEDS: LIDOCAINE 4% PATCH TP SCH (09:30)
[2023-02-17] MEDS: FERROUS SO4 325 MG TABLET (FP) PO SCH (09:30)
[2023-02-17] MEDS: NICOTINE 14 MG/24 HOURS TOPICAL PATCH TD SCH (09:30)
[2023-02-17] MEDS: LISINOPRIL 10 MG TABLET PO SCH (09:30)
[2023-02-17] MEDS: NICOTINE POLACRILEX 2 MG GUM BUC PRN (13:23)
[2023-02-17] MEDS: THIAMINE HCL 100 MG TABLET (FP) PO SCH (21:13)
[2023-02-17] MEDS: MELATONIN 5 MG TABLETS PO SCH (21:13)
[2023-02-17] MEDS: LIDOCAINE PATCH REMOVAL MC SCH (21:14)
[2023-02-18] MEDS: BACLOFEN 10 MG TABLET (FP) PO SCH ×3 (06:18→21:24)
[2023-02-18] MEDS: methaDONE 40 MG, methaDONE 20 MG PO SCH (06:18)
[2023-02-18] MEDS: LACTULOSE 20 GM/30 ML UDC (FOR ORAL USE ONLY) PO SCH ×3 (06:18→21:24)
[2023-02-18] MEDS: LISINOPRIL 10 MG TABLET PO SCH (09:45)
[2023-02-18] MEDS: PRENATAL VITAMINS W/ FOLIC ACID TABLET (FP) PO SCH (09:45)
[2023-02-18] MEDS: NICOTINE 14 MG/24 HOURS TOPICAL PATCH TD SCH (09:45)
[2023-02-18] MEDS: FERROUS SO4 325 MG TABLET (FP) PO SCH (09:45)
[2023-02-18] MEDS: LIDOCAINE 4% PATCH TP SCH (09:45)
[2023-02-18] MEDS: BUDESONIDE/FORMETEROL FUMARATE 80/4.5 mcg INHALER IH SCH (09:47)
[2023-02-18] MEDS: NICOTINE POLACRILEX 2 MG GUM BUC PRN ×2 (13:42→21:25)
[2023-02-18] MEDS: LIDOCAINE PATCH REMOVAL MC SCH (21:24)
[2023-02-18] MEDS: MELATONIN 5 MG TABLETS PO SCH (21:24)
[2023-02-18] MEDS: THIAMINE HCL 100 MG TABLET (FP) PO SCH (21:24)
[2023-02-19] MEDS: LACTULOSE 20 GM/30 ML UDC (FOR ORAL USE ONLY) PO SCH ×3 (06:39→21:20)
[2023-02-19] MEDS: BACLOFEN 10 MG TABLET (FP) PO SCH ×3 (06:40→21:21)
[2023-02-19] MEDS: methaDONE 40 MG, methaDONE 20 MG PO SCH (06:40)
[2023-02-19] MEDS: LIDOCAINE 4% PATCH TP SCH (09:45)
[2023-02-19] MEDS: BUDESONIDE/FORMETEROL FUMARATE 80/4.5 mcg INHALER IH SCH (09:45)
[2023-02-19] MEDS: NICOTINE 14 MG/24 HOURS TOPICAL PATCH TD SCH (09:45)
[2023-02-19] MEDS: LISINOPRIL 10 MG TABLET PO SCH (09:45)
[2023-02-19] MEDS: PANTOPRAZOLE 20 MG TABLET PO PRN (09:45)
[2023-02-19] MEDS: FERROUS SO4 325 MG TABLET (FP) PO SCH (09:45)
[2023-02-19] MEDS: PRENATAL VITAMINS W/ FOLIC ACID TABLET (FP) PO SCH (09:45)
[2023-02-19] MEDS: NICOTINE POLACRILEX 2 MG GUM BUC PRN ×2 (13:41→21:21)
[2023-02-19] MEDS: MELATONIN 5 MG TABLETS PO SCH (21:20)
[2023-02-19] MEDS: THIAMINE HCL 100 MG TABLET (FP) PO SCH (21:20)
[2023-02-19] MEDS: LIDOCAINE PATCH REMOVAL MC SCH (21:21)
[2023-02-20] MEDS: LACTULOSE 20 GM/30 ML UDC (FOR ORAL USE ONLY) PO SCH ×3 (06:12→21:31)
[2023-02-20] MEDS: methaDONE 40 MG, methaDONE 20 MG PO SCH (06:13)
[2023-02-20] MEDS: BACLOFEN 10 MG TABLET (FP) PO SCH ×3 (06:34→21:31)
[2023-02-20] MEDS: PRENATAL VITAMINS W/ FOLIC ACID TABLET (FP) PO SCH (10:09)
[2023-02-20] MEDS: LIDOCAINE 4% PATCH TP SCH (10:09)
[2023-02-20] MEDS: FERROUS SO4 325 MG TABLET (FP) PO SCH (10:09)
[2023-02-20] MEDS: NICOTINE 14 MG/24 HOURS TOPICAL PATCH TD SCH (10:10)
[2023-02-20] MEDS: BUDESONIDE/FORMETEROL FUMARATE 80/4.5 mcg INHALER IH SCH (10:11)
[2023-02-20] MEDS: LISINOPRIL 10 MG TABLET PO SCH (10:15)
[2023-02-20] MEDS: ALBUTEROL SO4 HFA INHALER IH PRN (14:31)
[2023-02-20] MEDS ORDERED: ASPIRIN 81 MG CHEWABLE TABLETS PO ONE (17:41)
[2023-02-20] MEDS: ACETAMINOPHEN 325 MG TABLET (FP) PO PRN (17:45)
[2023-02-20 20:16] LABS: URINE APPEARANCE CLEAR; URINE BILIRUBIN NEGATIVE (NEGATIVE); URINE COLOR YELLOW; URINE GLUCOSE (UA) NEGATIVE (NEGATIVE); URINE KETONE NEGATIVE (NEGATIVE); URINE LEUK ESTERASE NEGATIVE (NEGATIVE); URINE NITRITE NEGATIVE (NEGATIVE); URINE PROTEIN NEGATIVE (NEGATIVE); URINE UROBILINOGEN 0.2 mg/dL (0.2-1.0)
[2023-02-20] MEDS: MELATONIN 5 MG TABLETS PO SCH (21:30)
[2023-02-20] MEDS: THIAMINE HCL 100 MG TABLET (FP) PO SCH (21:30)
[2023-02-20] MEDS: LIDOCAINE PATCH REMOVAL MC SCH (21:31)
[2023-02-20] MEDS ORDERED: OSELTAMIVIR PHOSPHATE 45 MG CAPSULE PO SCH (22:00)
[2023-02-20] MEDS: OSELTAMIVIR PHOSPHATE 75 MG CAPSULE PO SCH (23:29)
[2023-02-21] MEDS: ACETAMINOPHEN 325 MG TABLET (FP) PO PRN (03:28)
[2023-02-21] MEDS: ALBUTEROL SO4 HFA INHALER IH PRN (03:29)
[2023-02-21] MEDS: LACTULOSE 20 GM/30 ML UDC (FOR ORAL USE ONLY) PO SCH ×3 (06:30→21:16)
[2023-02-21] MEDS: BACLOFEN 10 MG TABLET (FP) PO SCH ×3 (06:30→21:16)
[2023-02-21] MEDS: methaDONE 40 MG, methaDONE 20 MG PO SCH (06:30)
[2023-02-21] MEDS: LIDOCAINE 4% PATCH TP SCH (10:17)
[2023-02-21] MEDS: PRENATAL VITAMINS W/ FOLIC ACID TABLET (FP) PO SCH (10:17)
[2023-02-21] MEDS: LISINOPRIL 10 MG TABLET PO SCH (10:17)
[2023-02-21] MEDS: NICOTINE 14 MG/24 HOURS TOPICAL PATCH TD SCH (10:17)
[2023-02-21] MEDS: FERROUS SO4 325 MG TABLET (FP) PO SCH (10:17)
[2023-02-21] MEDS: OSELTAMIVIR PHOSPHATE 75 MG CAPSULE PO SCH ×2 (10:17→21:16)
[2023-02-21] MEDS: BUDESONIDE/FORMETEROL FUMARATE 80/4.5 mcg INHALER IH SCH (10:18)
[2023-02-21] MEDS: THIAMINE HCL 100 MG TABLET (FP) PO SCH (21:16)
[2023-02-21] MEDS: LIDOCAINE PATCH REMOVAL MC SCH (21:16)
[2023-02-21] MEDS: MELATONIN 5 MG TABLETS PO SCH (21:16)
[2023-02-22] MEDS: LACTULOSE 20 GM/30 ML UDC (FOR ORAL USE ONLY) PO SCH ×3 (06:21→22:33)
[2023-02-22] MEDS: methaDONE 40 MG, methaDONE 20 MG PO SCH (06:21)
[2023-02-22] MEDS: BACLOFEN 10 MG TABLET (FP) PO SCH ×3 (06:27→22:32)
[2023-02-22] MEDS: LIDOCAINE 4% PATCH TP SCH (10:10)
[2023-02-22] MEDS: LISINOPRIL 10 MG TABLET PO SCH (10:10)
[2023-02-22] MEDS: PRENATAL VITAMINS W/ FOLIC ACID TABLET (FP) PO SCH (10:10)
[2023-02-22] MEDS: BUDESONIDE/FORMETEROL FUMARATE 80/4.5 mcg INHALER IH SCH (10:10)
[2023-02-22] MEDS: FERROUS SO4 325 MG TABLET (FP) PO SCH (10:10)
[2023-02-22] MEDS: OSELTAMIVIR PHOSPHATE 75 MG CAPSULE PO SCH ×2 (10:11→22:32)
[2023-02-22] MEDS: NICOTINE 14 MG/24 HOURS TOPICAL PATCH TD SCH (10:11)
[2023-02-22] MEDS: ACETAMINOPHEN 325 MG TABLET (FP) PO PRN (18:22)
[2023-02-22] MEDS: MELATONIN 5 MG TABLETS PO SCH (22:32)
[2023-02-22] MEDS: THIAMINE HCL 100 MG TABLET (FP) PO SCH (22:32)
[2023-02-22] MEDS: LIDOCAINE PATCH REMOVAL MC SCH (22:33)
[2023-02-23] MEDS: methaDONE 40 MG, methaDONE 20 MG PO SCH (06:28)
[2023-02-23] MEDS: BACLOFEN 10 MG TABLET (FP) PO SCH ×3 (06:28→21:31)
[2023-02-23] MEDS: LACTULOSE 20 GM/30 ML UDC (FOR ORAL USE ONLY) PO SCH ×3 (06:28→21:31)
[2023-02-23] MEDS: PRENATAL VITAMINS W/ FOLIC ACID TABLET (FP) PO SCH (09:22)
[2023-02-23] MEDS: OSELTAMIVIR PHOSPHATE 75 MG CAPSULE PO SCH ×2 (09:23→21:31)
[2023-02-23] MEDS: LIDOCAINE 4% PATCH TP SCH (09:23)
[2023-02-23] MEDS: BUDESONIDE/FORMETEROL FUMARATE 80/4.5 mcg INHALER IH SCH (09:23)
[2023-02-23] MEDS: FERROUS SO4 325 MG TABLET (FP) PO SCH (09:23)
[2023-02-23] MEDS: LISINOPRIL 10 MG TABLET PO SCH (09:23)
[2023-02-23] MEDS: NICOTINE 14 MG/24 HOURS TOPICAL PATCH TD SCH (09:25)
[2023-02-23] MEDS: MELATONIN 5 MG TABLETS PO SCH (21:31)
[2023-02-23] MEDS: THIAMINE HCL 100 MG TABLET (FP) PO SCH (21:31)
[2023-02-23] MEDS: LIDOCAINE PATCH REMOVAL MC SCH (21:31)
[2023-02-24] MEDS: BACLOFEN 10 MG TABLET (FP) PO SCH ×3 (06:29→21:30)
[2023-02-24] MEDS: ACETAMINOPHEN 325 MG TABLET (FP) PO PRN (06:29)
[2023-02-24] MEDS: methaDONE 40 MG, methaDONE 20 MG PO SCH (06:31)
[2023-02-24] MEDS: LACTULOSE 20 GM/30 ML UDC (FOR ORAL USE ONLY) PO SCH ×3 (06:31→21:30)
[2023-02-24] MEDS: FERROUS SO4 325 MG TABLET (FP) PO SCH (09:44)
[2023-02-24] MEDS: OSELTAMIVIR PHOSPHATE 75 MG CAPSULE PO SCH ×2 (09:44→21:30)
[2023-02-24] MEDS: LISINOPRIL 10 MG TABLET PO SCH (09:44)
[2023-02-24] MEDS: LIDOCAINE 4% PATCH TP SCH (09:44)
[2023-02-24] MEDS: BUDESONIDE/FORMETEROL FUMARATE 80/4.5 mcg INHALER IH SCH (09:45)
[2023-02-24] MEDS: NICOTINE 14 MG/24 HOURS TOPICAL PATCH TD SCH (09:45)
[2023-02-24] MEDS: PRENATAL VITAMINS W/ FOLIC ACID TABLET (FP) PO SCH (09:45)
[2023-02-24] MEDS: MELATONIN 5 MG TABLETS PO SCH (21:30)
[2023-02-24] MEDS: LIDOCAINE PATCH REMOVAL MC SCH (21:30)
[2023-02-24] MEDS: THIAMINE HCL 100 MG TABLET (FP) PO SCH (21:30)
[2023-02-25] MEDS: methaDONE 40 MG, methaDONE 20 MG PO SCH (06:45)
[2023-02-25] MEDS: LACTULOSE 20 GM/30 ML UDC (FOR ORAL USE ONLY) PO SCH ×3 (06:45→21:41)
[2023-02-25] MEDS: BACLOFEN 10 MG TABLET (FP) PO SCH ×3 (06:45→21:42)
[2023-02-25] MEDS: LIDOCAINE 4% PATCH TP SCH (09:17)
[2023-02-25] MEDS: NICOTINE 14 MG/24 HOURS TOPICAL PATCH TD SCH (09:17)
[2023-02-25] MEDS: PRENATAL VITAMINS W/ FOLIC ACID TABLET (FP) PO SCH (09:17)
[2023-02-25] MEDS: FERROUS SO4 325 MG TABLET (FP) PO SCH (09:17)
[2023-02-25] MEDS: LISINOPRIL 10 MG TABLET PO SCH (09:17)
[2023-02-25] MEDS: OSELTAMIVIR PHOSPHATE 75 MG CAPSULE PO SCH (09:18)
[2023-02-25] MEDS: BUDESONIDE/FORMETEROL FUMARATE 80/4.5 mcg INHALER IH SCH (09:18)
[2023-02-25] MEDS: MELATONIN 5 MG TABLETS PO SCH (21:42)
[2023-02-25] MEDS: THIAMINE HCL 100 MG TABLET (FP) PO SCH (21:42)
[2023-02-25] MEDS: LIDOCAINE PATCH REMOVAL MC SCH (21:43)
[2023-02-26] MEDS: BACLOFEN 10 MG TABLET (FP) PO SCH ×3 (05:58→21:24)
[2023-02-26] MEDS: methaDONE 40 MG, methaDONE 20 MG PO SCH (05:58)
[2023-02-26] MEDS: LACTULOSE 20 GM/30 ML UDC (FOR ORAL USE ONLY) PO SCH ×3 (05:58→21:24)
[2023-02-26] MEDS: BUDESONIDE/FORMETEROL FUMARATE 80/4.5 mcg INHALER IH SCH (10:22)
[2023-02-26] MEDS: NICOTINE 14 MG/24 HOURS TOPICAL PATCH TD SCH (10:22)
[2023-02-26] MEDS: PRENATAL VITAMINS W/ FOLIC ACID TABLET (FP) PO SCH (10:22)
[2023-02-26] MEDS: FERROUS SO4 325 MG TABLET (FP) PO SCH (10:23)
[2023-02-26] MEDS: LISINOPRIL 10 MG TABLET PO SCH (10:23)
[2023-02-26] MEDS: LIDOCAINE 4% PATCH TP SCH (10:23)
[2023-02-26] MEDS: THIAMINE HCL 100 MG TABLET (FP) PO SCH (21:24)
[2023-02-26] MEDS: MELATONIN 5 MG TABLETS PO SCH (21:24)
[2023-02-26] MEDS: LIDOCAINE PATCH REMOVAL MC SCH (21:25)
[2023-02-27] MEDS: LACTULOSE 20 GM/30 ML UDC (FOR ORAL USE ONLY) PO SCH ×3 (06:37→21:03)
[2023-02-27] MEDS: methaDONE 40 MG, methaDONE 20 MG PO SCH (06:37)
[2023-02-27] MEDS: BACLOFEN 10 MG TABLET (FP) PO SCH ×3 (06:38→21:03)
[2023-02-27] MEDS: BUDESONIDE/FORMETEROL FUMARATE 80/4.5 mcg INHALER IH SCH (09:35)
[2023-02-27] MEDS: FERROUS SO4 325 MG TABLET (FP) PO SCH (09:36)
[2023-02-27] MEDS: LISINOPRIL 10 MG TABLET PO SCH (09:36)
[2023-02-27] MEDS: PRENATAL VITAMINS W/ FOLIC ACID TABLET (FP) PO SCH (09:36)
[2023-02-27] MEDS: NICOTINE 14 MG/24 HOURS TOPICAL PATCH TD SCH (09:36)
[2023-02-27] MEDS: LIDOCAINE 4% PATCH TP SCH (09:36)
[2023-02-27] MEDS: NICOTINE POLACRILEX 2 MG GUM BUC PRN (09:38)
[2023-02-27] MEDS: THIAMINE HCL 100 MG TABLET (FP) PO SCH (21:03)
[2023-02-27] MEDS: MELATONIN 5 MG TABLETS PO SCH (21:03)
[2023-02-27] MEDS: LIDOCAINE PATCH REMOVAL MC SCH (21:04)
[2023-02-28] MEDS: methaDONE 40 MG, methaDONE 20 MG PO SCH (06:04)
[2023-02-28] MEDS: BACLOFEN 10 MG TABLET (FP) PO SCH ×3 (06:05→21:23)
[2023-02-28] MEDS: LACTULOSE 20 GM/30 ML UDC (FOR ORAL USE ONLY) PO SCH ×3 (06:05→21:23)
[2023-02-28] MEDS: PRENATAL VITAMINS W/ FOLIC ACID TABLET (FP) PO SCH (09:46)
[2023-02-28] MEDS: BUDESONIDE/FORMETEROL FUMARATE 80/4.5 mcg INHALER IH SCH (09:46)
[2023-02-28] MEDS: NICOTINE 14 MG/24 HOURS TOPICAL PATCH TD SCH (09:46)
[2023-02-28] MEDS: LIDOCAINE 4% PATCH TP SCH (09:46)
[2023-02-28] MEDS: FERROUS SO4 325 MG TABLET (FP) PO SCH (09:46)
[2023-02-28] MEDS: LISINOPRIL 10 MG TABLET PO SCH (09:46)
[2023-02-28] MEDS: MELATONIN 5 MG TABLETS PO SCH (21:23)
[2023-02-28] MEDS: THIAMINE HCL 100 MG TABLET (FP) PO SCH (21:23)
[2023-02-28] MEDS: LIDOCAINE PATCH REMOVAL MC SCH (21:23)
[2023-03-01] MEDS: LACTULOSE 20 GM/30 ML UDC (FOR ORAL USE ONLY) PO SCH ×3 (05:54→21:04)
[2023-03-01] MEDS: methaDONE 40 MG, methaDONE 20 MG PO SCH (05:55)
[2023-03-01] MEDS: BACLOFEN 10 MG TABLET (FP) PO SCH ×3 (05:55→21:04)
[2023-03-01] MEDS: PRENATAL VITAMINS W/ FOLIC ACID TABLET (FP) PO SCH (10:10)
[2023-03-01] MEDS: NICOTINE 14 MG/24 HOURS TOPICAL PATCH TD SCH (10:11)
[2023-03-01] MEDS: LIDOCAINE 4% PATCH TP SCH (10:11)
[2023-03-01] MEDS: FERROUS SO4 325 MG TABLET (FP) PO SCH (10:11)
[2023-03-01] MEDS: LISINOPRIL 10 MG TABLET PO SCH (10:11)
[2023-03-01] MEDS: BUDESONIDE/FORMETEROL FUMARATE 80/4.5 mcg INHALER IH SCH (10:13)
[2023-03-01] MEDS: LIDOCAINE PATCH REMOVAL MC SCH (21:04)
[2023-03-01] MEDS: MELATONIN 5 MG TABLETS PO SCH (21:04)
[2023-03-01] MEDS: THIAMINE HCL 100 MG TABLET (FP) PO SCH (21:04)
[2023-03-02] MEDS: LACTULOSE 20 GM/30 ML UDC (FOR ORAL USE ONLY) PO SCH ×3 (06:19→21:37)
[2023-03-02] MEDS: BACLOFEN 10 MG TABLET (FP) PO SCH ×3 (06:20→21:38)
[2023-03-02] MEDS: methaDONE 40 MG, methaDONE 20 MG PO SCH (06:20)
[2023-03-02] MEDS: NICOTINE 14 MG/24 HOURS TOPICAL PATCH TD SCH (09:53)
[2023-03-02] MEDS: FERROUS SO4 325 MG TABLET (FP) PO SCH (09:53)
[2023-03-02] MEDS: LISINOPRIL 10 MG TABLET PO SCH (09:53)
[2023-03-02] MEDS: PRENATAL VITAMINS W/ FOLIC ACID TABLET (FP) PO SCH (09:53)
[2023-03-02] MEDS: LIDOCAINE 4% PATCH TP SCH (09:53)
[2023-03-02] MEDS: BUDESONIDE/FORMETEROL FUMARATE 80/4.5 mcg INHALER IH SCH (09:54)
[2023-03-02] MEDS: MELATONIN 5 MG TABLETS PO SCH (21:37)
[2023-03-02] MEDS: THIAMINE HCL 100 MG TABLET (FP) PO SCH (21:38)
[2023-03-02] MEDS: LIDOCAINE PATCH REMOVAL MC SCH (21:38)
[2023-03-03] MEDS: LACTULOSE 20 GM/30 ML UDC (FOR ORAL USE ONLY) PO SCH ×3 (06:11→21:23)
[2023-03-03] MEDS: BACLOFEN 10 MG TABLET (FP) PO SCH ×3 (06:12→21:22)
[2023-03-03] MEDS: methaDONE 40 MG, methaDONE 20 MG PO SCH (06:12)
[2023-03-03] MEDS: NICOTINE 14 MG/24 HOURS TOPICAL PATCH TD SCH (10:11)
[2023-03-03] MEDS: FERROUS SO4 325 MG TABLET (FP) PO SCH (10:11)
[2023-03-03] MEDS: BUDESONIDE/FORMETEROL FUMARATE 80/4.5 mcg INHALER IH SCH (10:11)
[2023-03-03] MEDS: PRENATAL VITAMINS W/ FOLIC ACID TABLET (FP) PO SCH (10:11)
[2023-03-03] MEDS: LISINOPRIL 10 MG TABLET PO SCH (10:11)
[2023-03-03] MEDS: LIDOCAINE 4% PATCH TP SCH (10:12)
[2023-03-03] MEDS: MELATONIN 5 MG TABLETS PO SCH (21:22)
[2023-03-03] MEDS: THIAMINE HCL 100 MG TABLET (FP) PO SCH (21:22)
[2023-03-03] MEDS: LIDOCAINE PATCH REMOVAL MC SCH (21:23)
[2023-03-04] MEDS: methaDONE 40 MG, methaDONE 20 MG PO SCH (06:01)
[2023-03-04] MEDS: LACTULOSE 20 GM/30 ML UDC (FOR ORAL USE ONLY) PO SCH ×3 (06:01→21:16)
[2023-03-04] MEDS: BACLOFEN 10 MG TABLET (FP) PO SCH ×3 (06:01→21:16)
[2023-03-04] MEDS: LIDOCAINE 4% PATCH TP SCH (09:55)
[2023-03-04] MEDS: LISINOPRIL 10 MG TABLET PO SCH (09:56)
[2023-03-04] MEDS: PRENATAL VITAMINS W/ FOLIC ACID TABLET (FP) PO SCH (09:56)
[2023-03-04] MEDS: FERROUS SO4 325 MG TABLET (FP) PO SCH (09:56)
[2023-03-04] MEDS: BUDESONIDE/FORMETEROL FUMARATE 80/4.5 mcg INHALER IH SCH (09:56)
[2023-03-04] MEDS: NICOTINE 14 MG/24 HOURS TOPICAL PATCH TD SCH (09:56)
[2023-03-04] MEDS: THIAMINE HCL 100 MG TABLET (FP) PO SCH (21:16)
[2023-03-04] MEDS: LIDOCAINE PATCH REMOVAL MC SCH (21:16)
[2023-03-04] MEDS: MELATONIN 5 MG TABLETS PO SCH (21:16)
[2023-03-05] MEDS: LACTULOSE 20 GM/30 ML UDC (FOR ORAL USE ONLY) PO SCH ×3 (06:01→21:27)
[2023-03-05] MEDS: methaDONE 40 MG, methaDONE 20 MG PO SCH (06:02)
[2023-03-05] MEDS: BACLOFEN 10 MG TABLET (FP) PO SCH ×3 (06:03→21:27)
[2023-03-05] MEDS: NICOTINE 14 MG/24 HOURS TOPICAL PATCH TD SCH (10:13)
[2023-03-05] MEDS: LIDOCAINE 4% PATCH TP SCH (10:13)
[2023-03-05] MEDS: PRENATAL VITAMINS W/ FOLIC ACID TABLET (FP) PO SCH (10:13)
[2023-03-05] MEDS: FERROUS SO4 325 MG TABLET (FP) PO SCH (10:14)
[2023-03-05] MEDS: LISINOPRIL 10 MG TABLET PO SCH (10:14)
[2023-03-05] MEDS: BUDESONIDE/FORMETEROL FUMARATE 80/4.5 mcg INHALER IH SCH (10:14)
[2023-03-05] MEDS: THIAMINE HCL 100 MG TABLET (FP) PO SCH (21:27)
[2023-03-05] MEDS: LIDOCAINE PATCH REMOVAL MC SCH (21:28)
[2023-03-05] MEDS: MELATONIN 5 MG TABLETS PO SCH (21:28)
[2023-03-06] MEDS: LACTULOSE 20 GM/30 ML UDC (FOR ORAL USE ONLY) PO SCH (06:00)
[2023-03-06] MEDS: methaDONE 40 MG, methaDONE 20 MG PO SCH (06:00)
[2023-03-06] MEDS: BACLOFEN 10 MG TABLET (FP) PO SCH (06:01)
[2023-03-06 06:57] VITALS: RESP 16; TEMP 97.8
[2023-03-06] MEDS: LIDOCAINE 4% PATCH TP SCH (09:10)
[2023-03-06] MEDS: LISINOPRIL 10 MG TABLET PO SCH (09:10)
[2023-03-06] MEDS: FERROUS SO4 325 MG TABLET (FP) PO SCH (09:10)
[2023-03-06] MEDS: NICOTINE 14 MG/24 HOURS TOPICAL PATCH TD SCH (09:10)
[2023-03-06] MEDS: BUDESONIDE/FORMETEROL FUMARATE 80/4.5 mcg INHALER IH SCH (09:10)
[2023-03-06] MEDS: PRENATAL VITAMINS W/ FOLIC ACID TABLET (FP) PO SCH (09:10)
[2023-03-06 10:17] VITALS: BP 124/80; PULSE 56
== END 2023-03-06 09:48 | disposition home or self-care (01) | DRG 772 ==
LOC: YASAS 16:11 → Y3W 16:13 → Y6N 02-25 23:49 → Y3W 02-25 23:50
PROVIDERS: ADMIT Allergy & Immunology; ATTEND Psychiatry & Neurology Pain Medicine
PROC: HZ42ZZZ Group Counseling for Substance Abuse Treatment, Cognitive-Behavioral (ICD-10-PCS; principal; 2023-02-07)
DX: F10.20 Alcohol dependence, uncomplicated (principal); F14.20 Cocaine dependence, uncomplicated; F11.20 Opioid dependence, uncomplicated; F17.210 Nicotine dependence, cigarettes, uncomplicated; F43.10 Post-traumatic stress disorder, unspecified; E72.20 Disorder of urea cycle metabolism, unspecified; D50.9 Iron deficiency anemia, unspecified; I10 Essential (primary) hypertension; J10.1 Influenza due to other identified influenza virus with other respiratory manifestations; M54.40 Lumbago with sciatica, unspecified side; G89.29 Other chronic pain; R60.0 Localized edema
CPT/HCPCS: 0241U-QW; 36415; 80053; 81003; 82140; 85025; J0475

== ENCOUNTER 2024-01-28 17:43 | Inpatient (IN) | payer OTHER ==
[2024-01-28 18:59] VITALS: BMI 25.7
[2024-01-28] MEDS ORDERED: IBUPROFEN 600 MG TABLET (FP) PO PRN (21:28)
[2024-01-28] MEDS ORDERED: NALOXONE (NARCAN) HCL 4 MG/0.1 ML SPRAY NS PRN (21:28)
[2024-01-28] MEDS ORDERED: NALOXONE (NYS OPIOID OVERDOSE PROGRAM) 4 MG/0.1 ML SPRAY NS PRN (21:28)
[2024-01-28] MEDS ORDERED: MAGNESIUM HYDROX 2400MG/30ML ORAL SUSPENSION 30 ML CUP PO PRN (21:28)
[2024-01-28] MEDS ORDERED: BENZONATATE 200 MG CAPSULE PO PRN (21:28)
[2024-01-28] MEDS ORDERED: ONDANSETRON *ODT* 4 MG TABLET SL PRN (21:28)
[2024-01-28] MEDS ORDERED: guaiFENesin 600 MG TABLET.ER (FP) PO PRN (21:28)
[2024-01-28] MEDS ORDERED: MAG HYDROX/AL HYDROX/SIMETH 30 ML UNIT-DOSE CUP PO PRN (21:28)
[2024-01-28] MEDS ORDERED: IBUPROFEN 400 MG TABLET (FP) PO PRN (21:28)
[2024-01-28] MEDS ORDERED: NICOTINE POLACRILEX 2 MG GUM BUC PRN (21:28)
[2024-01-28] MEDS ORDERED: BENZOCAINE/MENTHOL (CHLORASEPTIC ) LOZENGE MM PRN (21:28)
[2024-01-28] MEDS ORDERED: LOPERAMIDE HCL 2 MG CAPSULE PO PRN (21:28)
[2024-01-28] MEDS ORDERED: BISMUTH SUBSALICYLATE 524 MG/30 ML PO PRN (21:28)
[2024-01-28] MEDS ORDERED: DICYCLOMINE HCL 10 MG CAPSULE PO PRN (21:28)
[2024-01-28] MEDS: MELATONIN 5 MG TABLETS PO SCH (23:09)
[2024-01-28] MEDS: hydrOXYzine PAMOATE 25 MG CAPSULE (FP) PO PRN (23:10)
[2024-01-28] MEDS: THIAMINE 100 MG TABLET PO SCH (23:10)
[2024-01-28] MEDS: METHOCARBAMOL 500 MG TABLET PO PRN (23:10)
[2024-01-29] MEDS ORDERED: ALBUTEROL SO4 HFA INHALER IH PRN (09:12)
[2024-01-29] MEDS ORDERED: BUPRENORPHINE HCL 150 MCG, BUPRENORPHINE HCL 75 MCG BC PRN (09:14)
[2024-01-29] MEDS: BUPRENORPHINE HCL 150 MCG, BUPRENORPHINE HCL 75 MCG BC ONE (10:10)
[2024-01-29] MEDS: cloNIDine HCL 0.1 MG TABLET PO ONE (10:10)
[2024-01-29] MEDS: BUDESONIDE/FORMETEROL FUMARATE 80/4.5 mcg INHALER IH SCH (10:15)
[2024-01-29] MEDS: PRENATAL VITAMINS W/ FOLIC ACID TABLET (FP) PO SCH (10:15)
[2024-01-29] MEDS: LORATADINE 10 MG TABLET PO SCH (10:15)
[2024-01-29] MEDS: diazePAM 5 MG TABLET PO PRN (10:16)
[2024-01-29] MEDS: NICOTINE 14 MG/24 HOURS TOPICAL PATCH TD SCH (10:17)
[2024-01-29] MEDS: LISINOPRIL 5 MG TABLET PO SCH (10:17)
[2024-01-29 11:21] LABS: HEMATOCRIT 32.8 % (35.4-49); HEMOGLOBIN 10.3 GM/dL (11.7-16.9); MCH 23.3 pg (25.7-33.7); MCHC 31.3 g/dl (32.0-35.9); MEAN CELL VOLUME 74.4 fl (80-96); MEAN PLT VOLUME 9.3 fl (7.5-11.1); PLATELET COUNT 226 10^3/uL (134-434); RDW 16.5 % (11.9-15.9); WHITE BLOOD COUNT 3.4 K/mm3 (4.0-10.0)
[2024-01-29 11:25] LABS: CHLORIDE 109 mmol/L (98-107); POTASSIUM 3.8 mmol/L (3.5-5.1); SODIUM 144 mmol/L (136-145)
[2024-01-29 11:29] LABS: ALBUMIN 2.9 g/dl (3.4-5.0); ANION GAP 6 mmol/L (4-13); CALCIUM 8.9 mg/dL (8.5-10.1); CO2 29 mmol/L (21-32); GLUCOSE,RANDOM 88 mg/dL (74-106)
[2024-01-29 11:32] LABS: CREATININE 0.7 mg/dL (0.55-1.3); SGOT/AST 20 U/L (15-37); SGPT/ALT 17 U/L (13-61)
[2024-01-29 11:34] LABS: BILIRUBIN,TOTAL 0.6 mg/dL (0.2-1); TOT PROT 5.8 g/dl (6.4-8.2)
[2024-01-29 11:35] LABS: ALK PHOS 70 U/L (45-117)
[2024-01-29] MEDS: cloNIDine HCL 0.1 MG TABLET PO PRN (17:24)
[2024-01-29] MEDS: MIRTAZAPINE 15 MG TABLET (FP) PO SCH (22:30)
[2024-01-30] MEDS ORDERED: BUPRENORPHINE HCL 150 MCG, BUPRENORPHINE HCL 75 MCG BC PRN
[2024-01-30] MEDS: BUPRENORPHINE HCL 150 MCG, BUPRENORPHINE HCL 75 MCG BC SCH (06:09)
[2024-01-30] MEDS: NAPROXEN 500 MG TABLET PO SCH (13:10)
[2024-01-30] MEDS: METHOCARBAMOL 500 MG TABLET PO PRN (22:01)
[2024-01-31] MEDS: BUPRENORPHINE HCL 450 MCG FILM BC SCH (05:42)
[2024-01-31] MEDS: ACETAMINOPHEN 325 MG TABLET (FP) PO PRN (20:54)
[2024-02-01] MEDS: BUPRENORPHINE/NALOXONE 4 MG/1 MG FILM PACKET SL SCH (06:00)
[2024-02-01] MEDS: FERROUS SO4 325 MG TABLET (FP) PO SCH (09:35)
[2024-02-01] MEDS: POLYETHYLENE GLYCOL (HEALTHYLAX) 3350 17 GM PACKET PO PRN (15:33)
[2024-02-02] MEDS: BUPRENORPHINE/NALOXONE 8 MG/2 MG FILM PACKET SL ONE (05:41)
[2024-02-02 06:26] VITALS: TEMP 97.8
[2024-02-02 08:41] VITALS: BP 147/85; PULSE 64; RESP 20
== END 2024-02-02 11:16 | disposition other institution (70) | DRG 773 ==
LOC: YASAS 17:43 → Y3N 21:43
PROVIDERS: ADMIT Allergy & Immunology; ATTEND Surgery
PROC: HZ2ZZZZ Detoxification Services for Substance Abuse Treatment (ICD-10-PCS; principal; 2024-01-28)
DX: F11.23 Opioid dependence with withdrawal (principal); F14.20 Cocaine dependence, uncomplicated; F17.210 Nicotine dependence, cigarettes, uncomplicated; F19.282 Other psychoactive substance dependence with psychoactive substance-induced sleep disorder; F32.9 Major depressive disorder, single episode, unspecified; G47.00 Insomnia, unspecified; M54.40 Lumbago with sciatica, unspecified side; G89.29 Other chronic pain; Z86.11 Personal history of tuberculosis; Z62.810 Personal history of physical and sexual abuse in childhood
CPT/HCPCS: 36415; 71046-TC-FY; 80053; 80305; 80307; 85027; 86780; 87811; 93005; 93010

== ENCOUNTER 2024-02-02 11:55 | Inpatient (IN) | payer OTHER ==
[2024-02-02] MEDS ORDERED: LOPERAMIDE HCL 2 MG CAPSULE PO PRN (14:25)
[2024-02-02] MEDS ORDERED: MAG HYDROX/AL HYDROX/SIMETH 30 ML UNIT-DOSE CUP PO PRN (14:25)
[2024-02-02] MEDS ORDERED: POLYETHYLENE GLYCOL (HEALTHYLAX) 3350 17 GM PACKET PO PRN (14:25)
[2024-02-02] MEDS ORDERED: BENZONATATE 200 MG CAPSULE PO PRN (14:25)
[2024-02-02] MEDS ORDERED: NALOXONE HCL 0.4 MG/ML VIAL IVPUSH PRN (14:25)
[2024-02-02] MEDS ORDERED: IBUPROFEN 400 MG TABLET (FP) PO PRN (14:25)
[2024-02-02] MEDS ORDERED: guaiFENesin 600 MG TABLET.ER (FP) PO PRN (14:25)
[2024-02-02] MEDS ORDERED: BENZOCAINE/MENTHOL (CHLORASEPTIC ) LOZENGE MM PRN (14:25)
[2024-02-02] MEDS ORDERED: ALBUTEROL SO4 HFA INHALER IH PRN (14:33)
[2024-02-02] MEDS: PRENATAL VITAMINS W/ FOLIC ACID TABLET (FP) PO SCH (15:02)
[2024-02-02] MEDS: THIAMINE 100 MG TABLET PO SCH (21:20)
[2024-02-02] MEDS: MELATONIN 5 MG TABLETS PO SCH (21:20)
[2024-02-02] MEDS: METHOCARBAMOL 500 MG TABLET PO PRN (21:21)
[2024-02-03] MEDS: LORATADINE 10 MG TABLET PO SCH (09:32)
[2024-02-03] MEDS: LISINOPRIL 5 MG TABLET PO SCH (09:32)
[2024-02-03] MEDS: BUDESONIDE/FORMETEROL FUMARATE 80/4.5 mcg INHALER IH SCH (09:33)
[2024-02-03 12:29] LABS: HIV INTERPRETATION NEGATIVE (NEGATIVE)
[2024-02-03] MEDS: hydrOXYzine PAMOATE 25 MG CAPSULE (FP) PO PRN (13:11)
[2024-02-03] MEDS: BUPRENORPHINE/NALOXONE 8 MG/2 MG FILM PACKET SL SCH (16:43)
[2024-02-04] MEDS ORDERED: NICOTINE POLACRILEX 4 MG GUM BUC PRN (13:51)
[2024-02-04] MEDS: MAGNESIUM HYDROX 2400MG/30ML ORAL SUSPENSION 30 ML CUP PO PRN (14:19)
[2024-02-04] MEDS: NICOTINE 14 MG/24 HOURS TOPICAL PATCH TD SCH (14:20)
[2024-02-05] MEDS: NICOTINE POLACRILEX 4 MG LOZENGE BC PRN (10:31)
[2024-02-05] MEDS ORDERED: DOCUSATE SODIUM 100 MG CAPSULE (FP) PO PRN (13:35)
[2024-02-05] MEDS: NICOTINE 21 MG/24 HOURS TOPICAL PATCH TD SCH (14:00)
[2024-02-05] MEDS: BACLOFEN 10 MG TABLET (FP) PO SCH (14:23)
[2024-02-05] MEDS: IBUPROFEN 600 MG TABLET (FP) PO PRN (18:01)
[2024-02-12] MEDS: hydrOXYzine PAMOATE 25 MG CAPSULE (FP) PO PRN (21:08)
[2024-02-12] MEDS: MIRTAZAPINE 15 MG TABLET (FP) PO SCH (21:08)
[2024-02-14] MEDS: ACETAMINOPHEN 325 MG TABLET (FP) PO PRN (09:59)
[2024-02-15] MEDS: GABAPENTIN 100 MG CAPSULE PO SCH (13:59)
[2024-02-18] MEDS: GABAPENTIN 100 MG CAPSULE PO SCH (21:10)
[2024-02-21] MEDS ORDERED: NICOTINE POLACRILEX 4 MG GUM BUC SCH (13:00)
[2024-02-21] MEDS ORDERED: NICOTINE POLACRILEX 4 MG GUM BUC PRN (13:14)
[2024-02-21] MEDS: VITAMINS A AND D TOPICAL OINTMENT TP SCH (18:50)
[2024-02-25] MEDS: FLU VACCINE (FLULAVAL) PF 45 MCG/0.5 ML SYRINGE 2024-2025 IM ONE (12:23)
[2024-02-27] MEDS: FUROSEMIDE 20 MG TABLET (FP) PO SCH (10:44)
[2024-03-02] MEDS: NALOXONE (NARCAN) HCL 4 MG/0.1 ML SPRAY NS PRN (07:14)
[2024-03-02 07:45] VITALS: BP 135/79; PULSE 60; RESP 16; TEMP 97.6
[2024-03-02] MEDS: NALOXONE (NYS OPIOID OVERDOSE PROGRAM) 4 MG/0.1 ML SPRAY NS SCH (08:34)
== END 2024-03-02 09:10 | disposition home or self-care (01) | DRG 772 ==
LOC: YASAS 11:55 → Y3NR 11:57 → Y3W 02-03 09:47
PROVIDERS: ADMIT Surgery; ATTEND Psychiatry & Neurology Pain Medicine
PROC: HZ42ZZZ Group Counseling for Substance Abuse Treatment, Cognitive-Behavioral (ICD-10-PCS; principal; 2024-02-02)
DX: F10.20 Alcohol dependence, uncomplicated (principal); F11.20 Opioid dependence, uncomplicated; F14.20 Cocaine dependence, uncomplicated; F17.210 Nicotine dependence, cigarettes, uncomplicated; F41.9 Anxiety disorder, unspecified; G47.00 Insomnia, unspecified; I10 Essential (primary) hypertension; J45.909 Unspecified asthma, uncomplicated; R76.11 Nonspecific reaction to tuberculin skin test without active tuberculosis; R60.0 Localized edema
CPT/HCPCS: 36415; 86803; 87389; 90656; G0008; J0475